=== PATIENT | female | born 1945 | race Caucasian/White ===

== ENCOUNTER 2018-02-08 13:42 | Inpatient (IN) | payer OTHER ==
[~2018-02-08] VITALS: Ht 142.2 cm; Wt 52.8 kg
[2018-02-08] VITALS (27 sets, daily range): BP systolic 74–126; BP diastolic 47–76; PULSE 104–126; RESP 9–21; Ht 142.2 cm; Wt 52.8 kg
--- NOTE | 2018-02-08 14:17 | ERD ---
ER Documentation Chief Complaint Chief Complaint BIB RA FOR EVAL OF HYPOGLYCEMIA. G10 GIVEN BY EMS. INITIAL GLUCOSE 20MG/DL HPI 72-year-old woman brought in by EMS from home for generalized weakness and hypoglycemia. Daughter states patient felt weak today and had fever and chills but was behaving normally and eating well yesterday and last night. She has a history of end-stage kidney disease and is hemodialysis dependent MWF, and has missed her last 3 hemodialysis sessions. Her right hemodialysis catheter was placed about 7-8 months ago. She states she is able to still urinate a bit, she denies URI symptoms, no cough, no vomiting or diarrhea, no blood per rectum or melena. Patient was given dextrose at the scene and mental status improved and transport here otherwise unremarkable. ROS All systems reviewed and are negative except as per history of present illness. Medications Home Meds Reported Medications Hydrocodone/Acetaminophen ([place] 5-325 Tablet) 1 Each Tablet, 1 EACH PO DAILY PRN for SEVERE PAIN LEVEL 7-10, TAB 02/08/18 Ondansetron Hcl* (Ondansetron Hcl*) 4 Mg Tablet, 4 MG PO Q4H PRN for NAUSEA AND OR VOMITING, TAB 02/08/18 Fludrocortisone* (Fludrocortisone*) 0.1 Mg Tablet, 0.1 MG PO DAILY, TAB 02/08/18 Levothyroxine Sodium* (Levothyroxine Sodium*) 25 Mcg Tablet, 25 MCG PO BEFORE BREAKFAST, #30 TAB 02/08/18 Digoxin* (Lanoxin*) 0.125 Mg Tablet, 0.125 MG PO DAILY, TAB 02/08/18 Ergocalciferol (Vitamin D2) (VITAMIN D2) 50,000 Unit Capsule, 96612 UNIT PO WEEKLY, CAP 02/08/18 Allergies Allergies: Coded Allergies: No Known Allergy (Unverified , 02/08/18) PMhx/Soc History of stroke, ambulates with a walker, hypertension but daughter states she has episodic hypotension, end-stage kidney disease hemodialysis dependent MWF, history of stroke, CHF with a left ventricular ejection fraction of 20% and severe global hypokinesis, COPD, pulmonary hypertension FmHx Family History: diabetes Physical Exam Vitals Vital Signs Date Temp Pulse Resp B/P (MAP) Pulse Ox O2 O2 Flow FiO2 Time Delivery Rate 02/08/18 122 14 80/60 (67) 97 BIPAP 16:45 02/08/18 100.6 121 17 98/57 (71) 95 BIPAP 16:19 02/08/18 100.1 118 15 104/57 100 BIPAP 15:01 (73) 02/08/18 100.8 14:45 02/08/18 128 30 100 14:26 02/08/18 Nasal 2 14:00 Cannula 02/08/18 100.8 127 20 143/112 97 13:53 (122) Physical Exam Const: No acute distress, febrile, dyspneic Head: Atraumatic Eyes: Normal Conjunctiva ENT: Normal External Ears, Nose and Mouth. Neck: Full range of motion. No meningismus. Resp: Clear to auscultation bilaterally Cardio: Tachycardic and regular Abd: Soft, no guarding or rigidity, no rebound Skin: No petechiae or rashes Back: No midline or flank tenderness Ext: No cyanosis, or edema Neur: Awake and alert x2, able to answer simple questions and follows simple commands, no focal deficits Psych: Normal Mood and Affect Result Diagram: 02/08/18 1400 02/08/18 1621 Results 24 hrs Laboratory Tests Test 02/08/18 13:55 02/08/18 14:00 02/08/18 14:14 02/08/18 14:20 POC Venous 3.2 mmol/L Lactate White Blood 2.2 10^3/ul Count Red Blood Count 3.55 10^6/ul Hemoglobin 11.6 g/dl Hematocrit 35.6 % Mean 100.3 fl Corpuscular Volume Mean 32.7 pg Corpuscular Hemoglobin Mean 32.6 g/dl Corpuscular Hemoglobin Conc ent Red Cell 19.1 % Distribution Width Platelet Count 86 10^3/UL Mean Platelet 13.1 fl Volume Immature 0.400 % Granulocytes % Neutrophils % 75.6 % Lymphocytes % 13.8 % Monocytes % 9.4 % Eosinophils % 0.4 % Basophils % 0.4 % Nucleated Red 1.3 /100WBC Blood Cells % Immature 0.010 10^3/ul Granulocytes # Neutrophils # 1.7 10^3/ul Lymphocytes # 0.3 10^3/ul Monocytes # 0.2 10^3/ul Eosinophils # 0.0 10^3/ul Basophils # 0.0 10^3/ul Nucleated Red 0.0 10^3/ul Blood Cells # Prothrombin 18.0 Sec Time Prothrombin 1.4 Time Ratio INR 1.46 International Normalized Rati o Activated 35.8 Sec Partial Thrombo plast Time Bedside Glucose 76 mg/dL Urine Color RED Urine Clarity TURBID Urine pH 6.0 Urine Specific 1.016 [place] Urine Ketones TRACE mg/dL Urine Nitrite NEGATIVE mg/dL Urine Bilirubin NEGATIVE mg/dL Urine NEGATIVE mg/dL Urobilinogen Urine Leukocyte 2+ Rosa/ul Esterase Urine > 182 /HPF Microscopic RBC Urine > 182 /HPF Microscopic WBC Urine Squamous MODERATE /HPF Epithelial Cell s Urine Bacteria MANY /HPF Urine 3+ mg/dL Hemoglobin Urine Glucose NEGATIVE mg/dL Urine Total 3+ mg/dl Protein Test 02/08/18 14:49 02/08/18 15:15 02/08/18 15:23 02/08/18 15:38 Bedside Glucose 46 mg/dL 91 mg/dL 73 mg/dL Blood Gas Blood arterial Specimen Source Arterial Blood 02/08/2018 3:18 Date Drawn :12 PM Arterial Blood 7.429 pH (Temp corrected ) Arterial Blood 33.5 mmhg pCO2 (Temp correct) Arterial Blood 95.2 mmHG pO2 (Temp corrected ) Arterial Blood 21.7 mmol/L HCO3 Arterial Blood -1.9 mmol/L Base Excess Arterial Blood 97.1 mmHG Oxygen Saturati on Pepe Test ACCEPTAB Arterial Blood Right Radial Gas Puncture Site Arterial 1.3 % Blood Carboxyhe moglobin Arterial Blood 0.3 % Methemoglobin Blood Gas A-a 79.3 mmHg O2 Differential Oxyhemoglobin 95.5 % Percent Blood Gas 37.0 C Temperature Blood Gas 16.0 Respiration Rate Blood Gas 22 Actual Respiration Rat e Blood Gas MASK - BIPAP Modality FiO2 30.0 % Blood Gas 13 Pressure Support Blood Gas 18/5 IPAP/EPAP Ratio Blood Gas M.[email or web address] Notified Whom Blood Gas 02/08/2018 3:39 Notified Time :33 PM Test 02/08/18 16:04 02/08/18 16:21 02/08/18 16:40 02/08/18 16:41 Bedside Glucose 62 mg/dL 67 mg/dL Sodium Level Pending Potassium Level mmol/L Chloride Level Pending Carbon Dioxide Pending Level Anion Gap Pending Blood Urea 68 mg/dl Nitrogen Creatinine 5.45 mg/dl Est Glomerular mL/min Filtrat Rate mL/min Glucose Level 96 mg/dl Calcium Level 8.2 mg/dl Total Bilirubin 0.7 mg/dl Direct 0.30 mg/dl Bilirubin Indirect 0.4 mg/dl Bilirubin Aspartate Amino 183 IU/L Transf (AST/SGO T) Alanine 9 IU/L Aminotransferas e (ALT/SGPT) Alkaline 251 IU/L Phosphatase Troponin I 0.046 ng/ml B-Type Pending Natriuretic Peptide Total Protein 8.1 g/dl Albumin 3.8 g/dl Globulin 4.30 g/dl Albumin/Globuli 0.88 n Ratio Lipase 25 U/L POC Venous 3.8 mmol/L Lactate Hepatitis B Pending Surface Antigen Hepatitis B Pending Core Total Antibody Hepatitis C Pending Antibody Test 02/08/18 16:55 Bedside Glucose 108 mg/dL Current Medications Medications Dose Sig/Gris Start Time Status Last (Trade) Ordered Route PRN Stop Time Admin Dose Reason Admin Cefepime HCl 50 ml @ ONCE ONCE 02/08/18 DC 02/08/18 100 mls/hr IVPB 14:30 14:34 02/08/18 14:59 Vancomycin 250 ml @ ONCE IVPB 02/08/18 DC 02/08/18 HCl 125 mls/hr 14:30 15:25 02/08/18 16:29 Ibuprofen 600 mg ONCE ONCE 02/08/18 DC (Motrin) PO 14:30 02/08/18 14:31 650 mg ONCE ONCE 02/08/18 DC 02/08/18 Acetaminophen IA 15:00 14:45 (Tylenol 02/08/18 Supp) 15:01 650 mg STK-MED 02/08/18 DC Acetaminophen ONCE IA 14:40 (Tylenol 02/08/18 Supp) 14:41 Dextrose 50 ml STK-MED 02/08/18 DC (D50w ONCE .ROUTE 14:51 Syringe) 02/08/18 14:52 Dextrose 50 ml ONCE ONCE 02/08/18 DC 02/08/18 (D50w IV 15:00 14:55 Syringe) 02/08/18 15:02 Dextrose 25 ml ONCE ONCE 02/08/18 DC 02/08/18 (D50w IV 16:30 16:05 Syringe) 02/08/18 16:31 Digoxin 0.125 mg DAILY@1300 02/09/18 (Digoxin) PO 13:00 0.1 mg DAILY PO 02/09/18 Fludrocortiso 09:00 ne Acetate (Florinef) 25 mcg BEFORE 02/09/18 Levothyroxine BREAKFAST 07:00 Sodium PO (Synthroid) IV Flush 3 ml PER 02/08/18 (NS 3 ml) PROTOCOL IV 16:30 Heparin 5,000 unit Q12 SC 02/08/18 Sodium 21:00 (Porcine) (Heparin (5000 Units/1ml)) Dextrose 50 ml Q10MIN PRN 02/08/18 02/08/18 (D50w IV 16:30 16:44 Syringe) hypoglycemia 250 ml @ TITRATE IV 02/08/18 Norepinephrin 1.875 mls/ 16:30 e hr Vancomycin VANCOMYCIN PER 02/08/18 UNV HCl (Vanco PER PHARMACY PROTOCOL XX 17:00 Iv Per Pharmacy) 50 ml @ Q24H IVPB 02/08/18 UNV Meropenem/Sod 100 mls/hr 17:00 ium Chloride Procedures/MDM IV line established 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 Patient was febrile. Blood and urine cultures have been ordered results are pending I will follow-up. 1 view chest x-ray performed, read by me: Severe cardiomegaly, atelectatic changes bilaterally, AICD in the left chest EKG performed, read by me revealed a paced ventricular rhythm tachycardic at 119 bpm, right axis deviation, intraventricular block, no concerning ST elevations or depressions noted. Administered cefepime 1 g IV and vancomycin 1 g IV. I suspect sepsis and patient may have infected hemodialysis catheter and or urinary tract infection. CBC reveals a leukopenia 2.2 and mild thrombocytopenia 86,000, creatinine el evated at 5.5, electrolytes otherwise unremarkable, liver function tests unremarkable, troponin negative. Urinalysis is positive for infection. Lactic acid initially elevated at 3.2 ABG reveals a pH of 7.43, PCO2 34, PO2 95. Normal Patient's infectious symptoms have not stabilized and the patient is at risk of rapid decompensation. The patient will be admitted for careful hydration, antibiotic therapy, and infectious source control. SEVERE SEPSIS CRITERIA: Infectious source: Urinary tract infection versus infected hemodialysis catheter End organ damage indicated by: [Lactate > 2.0 mmol/L Hypotension (SBP < 90 or >40 mmHG drop or MAP < 65) SEPSIS MANAGEMENT Time of recognition of sepsis: Upon arrival. Time of recognition of severe sepsis: No severe sepsis at this time. Time of recognition of septic shock: No septic shock at this time. 3 HOUR BUNDLE Blood cultures x 2 before broad-spectrum antibiotics: Yes 30 ml/kg NS bolus not completed because patient is in pulmonary edema Initial lactate 3.2 Repeat lactate 3.8 SEPTIC SHOCK ASSESSMENT: No lactic acid > 4.0 No persistent hypotension (SBP < 90 or 40 mmHg drop, MAP < 65) despite 30 mL/kg IV fluid bolus VOLUME REASSESSMENT FOR SEPTIC SHOCK: Reevaluation Time: 1600 Temp 99 F, pulse 100 bpm, respiratory rate 18 breaths/min, saturation 100% Heart tachycardic and regular Lungs poor breath sounds bilaterally Skin warm & dry Cap Refill less than 2 seconds Peripheral pulses radially present PERSISTENT HYPOTENSION TREATMENT: Comfort care no Central line not Required Vasopressor started not required I considered further perfusion assessment with CVP measurement, SCVO2, bedside ultrasound volume assessment, passive leg raise, trial of further fluid bolus. And proceeded with 30 ml/kg fluid bolus of NSS, broad spectrum antibiotics, and admission. CRITICAL CARE: Critical care time 35 minutes, this was time separate from other billable procedures. Emergent fluid management while maintaining close respiratory support. Provision of immediate and broad-spectrum antibiotic therapy. Simultaneous assessment for possible sources in order to direct targeted therapy. Consideration for invasive and chemical support to prevent cardiopulmonary collapse. Critical care time is independent of procedures performed. Accepting Care Team: Current data and ongoing care discussed. Time: Time of admission Primary Provider: Hospitalist Consulting: Infectious disease and nephrology Outstanding Data: none Departure Diagnosis: Primary Impression: Sepsis Sepsis type: sepsis due to unspecified organism Qualified Codes: A41.9 - Sepsis, unspecified organism Additional Impressions: Acute UTI End stage kidney disease Acute pulmonary edema CHF (congestive heart failure) Heart failure type: systolic Heart failure chronicity: acute Qualified Codes: I50.21 - Acute systolic (congestive) heart failure Acute metabolic encephalopathy due to hypoglycemia Condition: Serious HENRY MENESES MD Feb 08, 2018 14:17
[2018-02-08] MEDS ORDERED: IBUPROFEN 600 MG TAB PO ONE (14:30)
[2018-02-08] MEDS ORDERED: CEFEPIME 1GM/50 ML (PMX) 50 ML IVPB ONE (14:30)
[2018-02-08] MEDS ORDERED: VANCOMYCIN 1 GM (PMX) 250 ML IVPB SCH (14:30)
[2018-02-08] MEDS ORDERED: ACETAMINOPHEN 650 MG SUPP PR ONE ×2 (14:40→15:00)
[2018-02-08] MEDS ORDERED: ERGO500013 PO (14:49)
[2018-02-08] MEDS ORDERED: DIGO125T93 PO (14:49)
[2018-02-08] MEDS ORDERED: FLUD0.1T10 PO (14:50)
[2018-02-08] MEDS ORDERED: LEVO25TA6 PO (14:50)
[2018-02-08] MEDS ORDERED: DEXTROSE 50% 50 ML SYRINGE ONE (14:51)
[2018-02-08] MEDS ORDERED: ONDA4TAB95 PO (14:51)
[2018-02-08] MEDS ORDERED: HYDR-4011 PO (14:52)
[2018-02-08] MEDS ORDERED: DEXTROSE 50% 50 ML SYRINGE IV ONE ×2 (15:00→16:30)
--- NOTE | 2018-02-08 16:15 | HP ---
Date/Time of Note Date/Time of Note DATE: 02/08/18 TIME: 16:05 Assessment/Plan VTE Prophylaxis SCD applied (from Nsg): Yes Pharmacological prophylaxis: heparin Lines/Catheters IV Catheter Type (from Nrsg): Saline Lock Assessment/Plan Hospital Course 72 yo female with systolic CHF, DMII, ESRD, A Fib w PPM who presents with hypog lycemia, sepsis, and acute respiratory failure Acute respiratory failure: - From pulmonary edema 2/2 missed HD sessions - Urgent HD required. No significant pericardial effusion on bedside TTE so th is is not tamponade ESRD: - HD per Dr Nicole Hypoglycemia: - Not clear if related to sepsis vs drug induced but will treat with D50 pushes PRN, serial fingersticks Sepsis: - merrem q12h, limit IVF DMII; - hold insulin given hypoglycemia A Fib: - hold AC To ICU Result Diagram: 02/08/18 1400 02/08/18 1400 Results 24hrs Laboratory Tests Test 02/08/18 13:55 02/08/18 14:00 02/08/18 14:14 02/08/18 14:20 POC Venous 3.2 *H Lactate White Blood 2.2 L Count Red Blood Count 3.55 L Hemoglobin 11.6 L Hematocrit 35.6 L Mean 100.3 Corpuscular Volume Mean 32.7 Corpuscular Hemoglobin Mean 32.6 Corpuscular Hemoglobin Conc ent Red Cell 19.1 H Distribution Width Platelet Count 86 L Mean Platelet 13.1 H Volume Immature 0.400 Granulocytes % Neutrophils % 75.6 Lymphocytes % 13.8 L Monocytes % 9.4 Eosinophils % 0.4 Basophils % 0.4 Nucleated Red 1.3 H Blood Cells % Immature 0.010 Granulocytes # Neutrophils # 1.7 Lymphocytes # 0.3 L Monocytes # 0.2 L Eosinophils # 0.0 Basophils # 0.0 Nucleated Red 0.0 Blood Cells # Prothrombin 18.0 H Time Prothrombin 1.4 Time Ratio INR 1.46 International Normalized Rati o Activated 35.8 H Partial Thrombo plast Time Sodium Level Pending Potassium Level Chloride Level Pending Carbon Dioxide Pending Level Anion Gap Pending Blood Urea 68 H Nitrogen Creatinine 5.45 H Est Glomerular Filtrat Rate mL/min Glucose Level 96 Calcium Level 8.2 L Total Bilirubin 0.7 Direct 0.30 H Bilirubin Indirect 0.4 Bilirubin Aspartate Amino 183 H Transf (AST/SGO T) Alanine 9 L Aminotransferas e (ALT/SGPT) Alkaline 251 H Phosphatase Troponin I 0.046 B-Type Pending Natriuretic Peptide Total Protein 8.1 Albumin 3.8 Globulin 4.30 H Albumin/Globuli 0.88 n Ratio Lipase 25 Bedside Glucose 76 Urine Color RED Urine Clarity TURBID A Urine pH 6.0 Urine Specific 1.016 [place] Urine Ketones TRACE A Urine Nitrite NEGATIVE Urine Bilirubin NEGATIVE Urine NEGATIVE Urobilinogen Urine Leukocyte 2+ H Esterase Urine > 182 H Microscopic RBC Urine > 182 H Microscopic WBC Urine Squamous MODERATE Epithelial Cell s Urine Bacteria MANY A Urine 3+ H Hemoglobin Urine Glucose NEGATIVE Urine Total 3+ H Protein Test 02/08/18 14:49 02/08/18 15:15 02/08/18 15:23 02/08/18 15:38 Bedside Glucose 46 *L 91 73 Blood Gas Blood arterial Specimen Source Arterial Blood 02/08/2018 3:18 Date Drawn :12 PM Arterial Blood 7.429 pH (Temp corrected ) Arterial Blood 33.5 L pCO2 (Temp correct) Arterial Blood 95.2 H pO2 (Temp corrected ) Arterial Blood 21.7 L HCO3 Arterial Blood -1.9 Base Excess Arterial Blood 97.1 Oxygen Saturati on Pepe Test ACCEPTAB Arterial Blood Right Radial Gas Puncture Site Arterial 1.3 Blood Carboxyhe moglobin Arterial Blood 0.3 Methemoglobin Blood Gas A-a 79.3 H O2 Differential Oxyhemoglobin 95.5 Percent Blood Gas 37.0 Temperature Blood Gas 16.0 Respiration Rate Blood Gas 22 Actual Respiration Rat e Blood Gas MASK - BIPAP Modality FiO2 30.0 Blood Gas 13 Pressure Support Blood Gas 18/5 IPAP/EPAP Ratio Blood Gas M.D. Notified Whom Blood Gas 02/08/2018 3:39 Notified Time :33 PM HPI/ROS Admit Date/Time Admit Date/Time Hx of Present Illness 72 yo female with ESRD on HD, severe systolic CHF, A Fib, PPM who presents with hypoglycemia and SOB Patient in [facility] until last day. Found to be lethargic. Family checked FSG and found to be 14. EMS called and gave D50. In ED, found to be still lethargic and in respiratory failure. Started on bipap. Hypotensive as well, given abx. Patient unable to participate in history right now. Says her legs hurt, has obvious venous wound there PMH/Family/Social Past Medical History Medical History: congestive heart failure, diabetes, renal disease Medications Current Medications Vancomycin HCl 250 ml @ 125 mls/hr ONCE IVPB Last administered on 02/08/18at 15:25; Admin Dose 125 MLS/HR; Start 02/08/18 at 14:30; Stop 02/08/18 at 16:29 Coded Allergies: No Known Allergy (Unverified , 02/08/18) Past Surgical History Past Surgical Hx: no surgical history Family History Significant Family History: no pertinent family hx Social History Alcohol Use: none Smoking Status: Never smoker Drug Use: none Exam/Review of Systems Vital Signs Vitals Vital Signs Date Temp Pulse Resp B/P (MAP) Pulse Ox O2 O2 Flow FiO2 Time Delivery Rate 02/08/18 100.1 118 15 104/57 100 BIPAP 15:01 (73) 02/08/18 100 14:26 02/08/18 2 14:00 Exam Exam Cachectic Lethargic appearing On BIPAP ++ JVD Breathing comfortably on NIPPV RRR Abd soft nt nd Ext with venous stasis ulcerations, mild edema MILGRKEANU REID MD Feb 08, 2018 16:15
[2018-02-08] MEDS ORDERED: NACL 0.9% 3 ML SYG IV SCH (16:30)
--- NOTE | 2018-02-08 16:31 | NUR ---
DIALYSIS CONFIRMATION # [id number]
[2018-02-08] MEDS: DEXTROSE 50% 50 ML SYRINGE IV PRN ×3 (16:44→20:35)
[2018-02-08] MEDS ORDERED: VANCOMYCIN IV PER PHARMACY XX SCH (17:00)
[2018-02-08] MEDS ORDERED: PHENYLephrine 20MG IN 250 ML 250 ML IV SCH (17:30)
--- NOTE | 2018-02-08 17:50 | CONS ---
DATE OF ADMISSION: 02/08/2018 DATE OF CONSULTATION: 02/08/2018 TYPE OF CONSULTATION: Nephrology. REASON FOR CONSULTATION: End-stage renal disease. PHYSICIAN REQUESTING CONSULT: Sam Shepherd MD HISTORY OF PRESENT ILLNESS: This is a 72-year-old female with a past medical history of end-stage re nal disease on dialysis Tuesday, Tuesday, Tuesday with access of PermCath. The patient's primary nep hrologist is in [place]. The patient's last hemodialysis apparently was over a week ago. The twila burch presents to [facility] with weakness, fevers, chills. Upon arrival to the emerge ncy room, the patient was noted to be visibly tachypneic, shortness of breath. The patient had a ely st x-ray which showed enlargement of cardiomediastinal silhouette compatible with cardiomegaly and/or pericardial effusion. The patient also had laboratory data drawn, which showed BUN of 68, creatinin e 5.48, glucose level 67. ABG was performed which showed pH of 7.42 and a pCO2 of 33. In the emerge ncy room, the patient was placed on BiPAP and was being transferred to intensive care unit. The demarco ender was also started on broad broad-spectrum antibiotics. In terms of patient's renal history as stated above, the patient is on dialysis 3 times weekly. Last hemodialysis is a week ago. PAST MEDICAL HISTORY: History of end-stage renal disease, history of ____, history of CHF, history o f cardiomyopathy with ejection fraction of 20%, history of COPD, history of pulmonary hypertension. PAST SURGICAL HISTORY: Status post PermCath placement. ALLERGIES: NO KNOWN DRUG ALLERGIES. FAMILY HISTORY: No family history of kidney disease. SOCIAL HISTORY: Does not drink, smoke or do drugs. MEDICATIONS: Have been reviewed. REVIEW OF SYSTEMS: A 14-point review of systems conducted. Pertinent positives stated in HPI, other kim negative. PHYSICAL EXAMINATION: VITAL SIGNS: Blood pressure is 80/60, respiration 14, pulse 122, temperature 100.6. HEENT: Head is normocephalic. Pupils are equal, reactive to light. NECK: Supple. HEART: Regular rate. LUNGS: Show diminished breath sounds at the base. ABDOMEN: Soft, nontender to palpation. No rebound or guarding. EXTREMITIES: Negative for clubbing, cyanosis. Positive edema. Diffuse anasarca. DERMATOLOGIC: No rashes. MUSCULOSKELETAL: No joint effusions. NEUROLOGIC: No change in exam. LABORATORY DATA: BMP is currently pending. CBC shows white count ____, hemoglobin 11.6, platelet co unt 86. ASSESSMENT AND PLAN: This is a 72-year-old female who presents with: 1. End-stage renal disease. The patient is on dialysis Tuesday, Tuesday, Tuesday with access of Per [facility]. Last hemodialysis was 1 week ago. Plan is for urgent hemodialysis today for solute clearance and volume removal. We will dialyze for 3 hours of 2k bath, calcium 2.5, ultrafiltrate as tolerated . 2. Acute hypoxemic respiratory failure secondary to volume overload, questionable pericardial effusi on. Plan is for patient to undergo hemodialysis with goal of ultrafiltration approximately 1 to 2 li ters. We will anticipate daily dialysis for volume removal until patient is near euvolemic status. Continue BiPAP. Anticipate hemodialysis. 3. Uremia with questionable pericardial effusion, possible uremic pericarditis. Plan is to continue aggressive hemodialysis for solute clearance. Continue to monitor. 4. Systemic inflammatory response syndrome, possible sepsis. Underlying source is unclear. Rule ou t line infection. Continue empiric antibiotics. Check blood cultures. Continue medical management. If the patient becomes hypotensive, consider pressor support. 5. Atrial fibrillation. Continue current medical management. 6. Diabetes. Continue current insulin regimen. Monitor for episodes of hypoglycemia. Thank you, Dr. Shepherd, for this interesting consult. It will be a pleasure to follow patient with y ou throughout the hospital course. Dictated By: ROYAL ROSA DO NR/NTS Conf#: [id number] DID#: [id number] CC: SAM SHEPHERD MD; TI ESPINO MD;*EndCC*
--- NOTE | 2018-02-08 17:55 | NUR ---
VANCO PER RX PROTOCOL: DAY #1 S/O: TMAX = 100.8 SCR/BUN/= 5.45/68 WBC = 2.2 DX: ESRD (HD), DM, CHF, SEPSIS 2/2 UTI A/P: VANCO 1GM GIVEN IN ER THIS AFTERNOON. NO FURTHER VANCO UNTIL FURTHER ORDERS. RANDOM LEVEL IN 2-3 DAYS TO CHECK VANCO CLEARANCE. WILL CONTINUE TO FOLLOW.
[2018-02-08] MEDS ORDERED: LIDOCAINE 1% (MPF) 5 ML VIAL SC ONE ×2 (18:00→19:00)
[2018-02-08] MEDS: NORepinephrine 8MG/250 ML (PMX 250 ML IV SCH (18:12)
[2018-02-08] MEDS: MEROPENEM 500MG/50 ML (PMX) 50 ML IVPB SCH (18:21)
[2018-02-08] MEDS: ACCU-CHEK XX SCH ×3 (19:00→23:00)
--- NOTE | 2018-02-08 19:08 | NUR ---
PICC LINE INSERTION Per radiology, call [phone] to have PICC nurse come in after hours. No one in house available to place PICC at this time. Number called and message left. Awaiting call back. Will endorse to oncoming RN, Lashonda, to follow up.
[2018-02-08] MEDS: HEPARIN 5,000 UNIT/1 ML VIAL SC SCH (21:45)
[2018-02-09] VITALS (67 sets, daily range): BP systolic 77–124; BP diastolic 40–94; PULSE 110–163; RESP 9–21
[2018-02-09] MEDS: DEXTROSE 50% 50 ML SYRINGE IV PRN ×4 (00:52→23:42)
[2018-02-09] MEDS: ACCU-CHEK XX SCH ×12 (00:57→23:42)
[2018-02-09] MEDS: traMADol 50 MG TAB PO PRN ×2 (01:29→07:57)
--- NOTE | 2018-02-09 07:25 | NUR ---
EOSS: PT REMAINED HEMODYNAMICALLY STABLE OVERNIGHT. BP BEING MANAGED ON LEVOPHED GTT. NO ACUTE CARDIAC EVENTS NOTED. PT SATTING WELL ON 4L NC. PT REMAINS NPO. BG MONITORED OVERNIGHT, 2 EPISODES OF HYPOGLYCEMIA NOTED, TREATED WITH D50 PUSHES, CONTINUING TO MONITOR CAREFULLY. MD AWARE. NO [place] IN PLACE. HD ARRIVED AT 06:50. DAUGHTER AT BEDSIDE AND UPDATED ON PLAN OF CARE. PRN TRAMADOL GIVEN ONCE FOR GENERALIZED PAIN, REASSESSED PARTIALLY EFFECTIVE. PICC LINE RESCHEDULED FOR TODAY. PT AFEBRILE AND COMFORTABLE. NO COMPLAINTS OF PAIN. WILL CONTINUE TO MONITOR AND ASSESS AND ENDORSE CARE TO DAY SHIFT RN.
--- NOTE | 2018-02-09 08:20 | NUR ---
DIALYSIS CONFIRMATION #[id number] SCHEDULED FOR 02/10/18
[2018-02-09] MEDS: HEPARIN 5,000 UNIT/1 ML VIAL SC SCH ×2 (08:40→20:36)
[2018-02-09] MEDS: NORepinephrine 8MG/250 ML (PMX 250 ML IV SCH ×2 (08:43→17:31)
--- NOTE | 2018-02-09 08:52 | PN ---
DATE: 02/09/2018 SUBJECTIVE: The patient is critically ill on pressor support. The patient is pending hemodialysis. No other events noted. OBJECTIVE: VITAL SIGNS: Blood pressure is 102/58, respiration 19, pulse 115, temperature 98.6. HEENT: Head is normocephalic. NECK: Supple. HEART: Regular rate. LUNGS: Show diminished breath sounds at the base. ABDOMEN: Soft, nontender to palpation without guarding. EXTREMITIES: Negative for clubbing, cyanosis. Positive edema. DERMATOLOGIC: No rashes. MUSCULOSKELETAL: No joint effusion. NEUROLOGIC: No change in exam. MEDICATIONS: The patient's medications have been reviewed. LABORATORY DATA: Shows white count 7.2, hemoglobin 12.3, platelet count 70. Sodium 132, potassium 5 .6, BUN 70, creatinine 6.29. Patient's blood cultures positive for gram-negative rods. ASSESSMENT AND PLAN: 1. End-stage renal disease. The patient is on dialysis Tuesday, Tuesday, Tuesday with access Perm-A -Cath. The patient's last hemodialysis was approximately 1 week ago. The patient is pending urgent hemodialysis. Will dialyze for 3 hours 2k bath, calcium 2.5, ultrafiltrate as tolerated. 2. Septic shock, etiology is concerning for possible line infection. The patient's blood cultures a re growing out gram-negative rods. Continue current medical management. Continue pressor support. Continue IV antibiotics. We will discuss with infectious disease about discontinuing Perm-A-Cath. W ill monitor closely. 3. Anemia. Continue to monitor hemoglobin and hematocrit levels. 4. Volume overload. Continue ultrafiltration hemodialysis if the patient is hemodynamically stable. 5. Mineral bone disorder, monitor calcium and phosphorus levels. 6. Acute encephalopathy. Etiology is toxic metabolic, uremic. Continue medical management. Contin ue ultrafiltration dialysis. Continue to treat underlying sepsis. 7. Acute hypoxemic respiratory failure secondary to volume overload, congestion. Continue current m edical management. Continue ultrafiltration dialysis. 8. Atrial fibrillation. Continue current treatment plan. 9. Diabetes. Continue current insulin regimen. 10. Hypokalemia. The patient will be dialyzed on 2 potassium bath. 11. Hyponatremia. The patient will be dialyzed on 140 sodium bath. Please note I spent over 30 minutes of critical care time with this patient. Dictated By: ROYAL VAZQUEZ/MILA Conf#: [id number] DID#: [id number] CC: KEANU CROUCH MD;*[facility]*
[2018-02-09] MEDS ORDERED: FLUDROCORTISONE 0.1 MG TAB PO SCH (09:00)
[2018-02-09] MEDS ORDERED: HEPARIN 1000 UNITS/ML 10 ML INJ CATHETER ONE (09:30)
[2018-02-09] MEDS: LEVOTHYROXINE 25 MCG TAB PO SCH (09:32)
--- NOTE | 2018-02-09 11:00 | NUR ---
Pt completed hemodialysis well, uf removal 1600 ml. Pt endorsed to primary RN Henrique Herndon. .
[2018-02-09] MEDS: DIGOXIN 0.125 MG TAB PO SCH (12:27)
--- NOTE | 2018-02-09 14:11 | CONS ---
DATE OF ADMISSION: 02/08/2018 DATE OF CONSULTATION: 02/09/2018 TYPE OF CONSULTATION: Infectious disease. REASON FOR CONSULTATION: Antibiotic management. HISTORY OF PRESENT ILLNESS: Anamaria Palomo is a 72-year-old female who was brought in for evaluation of hypoglycemia. The patient was brought in by EMS from home for generalized weakness and hypoglyce maye. Her daughter states the patient felt weak. She had fever and chills, but was behaving normally and eating well the day prior to admission. She has a history of end-stage renal disease on hemodia lysis Tuesday, Tuesday and Tuesday and her last 3 hemodialysis sessions. Her right hemodialysi s catheter was placed 7 or 8 months ago. She states she is still able to urinate. She denies URI sy mptoms. She has no cough or sputum production, nausea, vomiting, constipation, diarrhea, hematemesis or melena. She was given D50 at the scene and her mental status improved at that point. PAST MEDICAL HISTORY: Positive for: 1. End-stage renal disease on hemodialysis. 2. History of stroke. She ambulates with a walker. 3. Hypertension with episodes of hypotension. 4. Congestive heart failure with left ventricular ejection fraction of 20% and severe global hypokin esis. 5. Chronic obstructive pulmonary disease. 6. Pulmonary hypertension. PAST MEDICAL HISTORY: Operations as outlined. FAMILY HISTORY: Positive for diabetes. SOCIAL HISTORY: She does not smoke, drink or abuse drugs. ALLERGIES: None to penicillin, sulfa or foods. MEDICATIONS: Per chart. REVIEW OF SYSTEMS: Noncontributory. PHYSICAL EXAMINATION: VITAL SIGNS: T-max was 100.8, currently 98. SKIN: Without generalized rash. HEENT: Within normal limits. NECK: Supple. LYMPH NODES: None palpable. CHEST: Decreased breath sounds at the bases. HEART: Tachycardic, regular rhythm without murmur or gallop. ABDOMEN: Soft, nontender, without organosplenomegaly or masses. EXTREMITIES: Without cyanosis, clubbing, or edema. RECTAL AND GENITAL: Deferred. NEUROLOGIC: No focal neurological abnormalities. ANCILLARY LABORATORY DATA: White count 2.2, H and H 11.6 and 35.6, platelet count 86,000. BUN and c reatinine 68/5.45. Random glucose of 96. IMPRESSION AND PLAN: The patient was started on vancomycin and cefepime and then vancomycin and chris penem. Blood and urine cultures were ordered. The patient was noted to be leukopenic as outlined wi th a white count of 2.2. She had 76% polys, so she is not absolutely neutropenic. Her urine showed 2+ leukocyte esterase, greater than 182 white cells and red cells per high powered field. Her urine and blood grew out gram-negative rods. Her sepsis is probably related to her urinary tract infection . She is currently on appropriate antibiotic therapy with urinary tract infection with sepsis with g francesca-negative rods. She was seen by Dr. Nicole and will be started back on appropriate antimicrobial s. I doubt that the Perm-A-Cath is infected. I would not pull it at this point. Her chest x-ray do es not show any acute infiltrates. So the source of her infection appears to be her urinary tract. I will dictate my findings to the hospitalist and to Dr. Nicole. White count today is 7.2, up from 2.2, but she has 20 polys, 42 bands with a significant left shift. Dictated By: ZANDER BOWLES MD, JD/MILA Conf#: [id number] DID#: [id number] CC: KEANU CROUCH MD;*[facility]*
[2018-02-09] MEDS ORDERED: LIDOCAINE 1% (MPF) 5 ML VIAL SC ONE (16:30)
--- NOTE | 2018-02-09 16:33 | RADRPT ---
Echocardiogram Report Patient Name: YANN CANO Gender: Female Date: 1945 Study Date: 08-Feb-2018 Office Electrician: [place] [employer] [facility] Location: [facility] Ref. Physician: KEANU CROUCH Quality: Adequate Procedures: Transthoracic echocardiogram with complete 2D, M-Mode, and doppler examination. Indications: Congestive Heart Failure. 2D/M Mode Doppler Measurement Value Normal Ranges Measurement Value Normal Ranges LVIDd 2D 5.3 3.5 - 5.6 cm AV Peak Isaac 1.5 m/sec LVIDs 2D 4.4 2.1 - 4.1 cm AV Peak PG 9.0 mmHg LVPWd 2D 0.9 0.6 - 1.1 cm LVOT Peak Isaac 0.6 m/sec IVSd 2D 0.8 0.6 - 1.1 cm LVOT Peak PG 2.0 mmHg AoR Diam 2D 2.3 2.0 - 3.7 cm MV E Peak Isaac 1.4 m/sec LA/Ao 2D 2 0 - 1 MV A Peak Isaac 0.3 m/sec LA Dimen 2D 4.6 2.3 - 4.0 cm MV E/A 4.7 MV Decel Time 194 msec Lat E` Isaac 0.1 m/sec Lateral E/E` 15.3 Med E` Isaac 0.0 m/sec MV E/A 4.7 TAPSE 1.6 cm TR Peak Isaac 2.8 m/sec TR Peak PG 32.0 mmHg RVSP 47.0 mmHg Findings Left Ventricle: Normal left ventricular cavity size. Normal left ventricular wall thickness. Severe left ventricular systolic dysfunction. Ejection fraction is visually estimated at 20 %. Abnormal Diastolic Function. These segments of the LV are dyskinetic mid septum segment and septum base segment. Right Ventricle: Moderate enlargement of right ventricle. Mild right ventricular hypokinesis. Pacemaker right heart. Left Atrium: There is mild enlargement of left atrium. Right Atrium: There is severe enlargement of right atrium. Mitral Valve: Mild mitral leaflet calcification. Mild mitral annular calcification. Moderate to severe mitral valve regurgitation. The regurgitation jet is eccentrically directed which may underestimate the severity of mitral regurgitation. Aortic Valve: No significant aortic stenosis or insufficiency. Aortic cusps appear mildly calcified. Mild aortic valve regurgitation. Tricuspid Valve: Normal appearance of the tricuspid valve. Estimated peak PA systolic pressure 47 mmHg. There is moderate tricuspid regurgitation. Pulmonic Valve: Pulmonic valve not well visualized. There is mild pulmonic regurgitation. Pericardium: TRivial to Small pericardial effusion. Left pleural effusion seen. Aorta: Normal aortic root. IVC: Dilated inferior vena cava with poor inspiratory collapse consistent with elevated right atrial pressures. Conclusions Normal left ventricular cavity size. Normal left ventricular wall thickness. Severe left ventricular systolic dysfunction. Ejection fraction is visually estimated at 20 %. Abnormal Diastolic Function. These segments of the LV are dyskinetic mid septum segment and septum base segment. Moderate enlargement of right ventricle. Mild right ventricular hypokinesis. Pacemaker right heart. There is mild enlargement of left atrium. There is severe enlargement of right atrium. Mild mitral leaflet calcification. Mild mitral annular calcification. Moderate to severe mitral valve regurgitation. The regurgitation jet is eccentrically directed which may underestimate the severity of mitral regurgitation. No significant aortic stenosis or insufficiency. Aortic cusps appear mildly calcified. Mild aortic valve regurgitation. Normal appearance of the tricuspid valve. Estimated peak PA systolic pressure 47 mmHg. There is moderate tricuspid regurgitation. Pulmonic valve not well visualized. There is mild pulmonic regurgitation. Electronically Signed By: Graham Lopez 09-Feb-2018 16:33:05 -0800 Patient Name: YANN CANO Study Date: 08-Feb-2018 [id number]
--- NOTE | 2018-02-09 16:52 | NUR ---
PICC LINE INSERTION PICC LINE NURSE AT BEDSIDE AT THIS TIME
--- NOTE | 2018-02-09 17:01 | PN ---
Date/Time of Note Date/Time of Note DATE: 02/09/18 TIME: 17:00 Assessment/Plan VTE Prophylaxis Risk score (from Nsg)>0 risk: 6 SCD applied (from Nsg): No SCD contraindicated: low risk/ambulating Pharmacological prophylaxis: heparin Lines/Catheters IV Catheter Type (from Nrsg): Peripheral IV Urinary Cath still in place: No Assessment/Plan Hospital Course 72 yo female with systolic CHF, DMII, ESRD, A Fib w PPM who presents with hypoglycemia, sepsis, and acute respiratory failure Acute respiratory failure: - Resolved, O2 as needed Hypotensin/shock: - Levophed to MAP 65 ESRD: - HD per Dr Nicole Hypoglycemia: - Not clear if related to sepsis vs drug induced but will treat with D50 pushes PRN, serial fingersticks Sepsis with GNR bacteremia: - merrem q12h, limit IVF, abx per ID DMII; - hold insulin given hypoglycemia A Fib: - hold AC To ICU Result Diagram: 02/09/18 0451 02/09/18 0451 Results 24hrs Laboratory Tests Test 02/08/18 17:16 02/08/18 18:01 02/08/18 18:25 02/08/18 18:52 Bedside Glucose 78 58 L 116 Lactic Acid 2.7 *H Level Test 02/08/18 18:53 02/08/18 20:00 02/08/18 21:02 02/08/18 21:17 Bedside Glucose 94 56 L 131 127 Test 02/08/18 22:50 02/08/18 22:56 02/08/18 23:53 02/09/18 00:50 Bedside Glucose 78 80 77 64 L Test 02/09/18 01:32 02/09/18 03:06 02/09/18 04:47 02/09/18 04:49 Bedside Glucose 132 142 96 Digoxin Level 0.5 L Test 02/09/18 04:51 02/09/18 05:56 02/09/18 07:53 02/09/18 08:15 White Blood 7.2 # Count Red Blood Count 3.79 L Hemoglobin 12.3 Hematocrit 37.1 Mean Corpuscular 97.9 Volume Mean Corpuscular 32.5 Hemoglobin Mean Corpuscular 33.2 Hemoglobin Estrellita nt Red Cell 18.6 H Distribution Width Platelet Count 70 L Mean Platelet 12.1 H Volume Immature 0.300 Granulocytes % Neutrophils % Segmented 20 L Neutrophils % (Manual) Band Neutrophils 43 H % (Manual) Lymphocytes % Lymphocytes % 4 L (Manual) Monocytes % Monocytes % 4 (Manual) Eosinophils % Eosinophils % 10 H (Manual) Basophils % Metamyelocytes % 14 H (manual) Myelocytes % 5 H (Manual) Nucleated Red 1 H Blood Cells % Immature 0.020 Granulocytes # Neutrophils # Neutrophils # 1.7 (Manual) Band Neutrophils 3.0 H # Lymphocytes 0.2 L (Manual) Lymphocytes # Monocytes # Monocytes # 0.2 L (Manual) Eosinophils # Basophils # Metamyelocytes # 1.0 H Myelocytes # 0.3 H Nucleated Red Blood Cells # Platelet DECREASED Estimate Giant Platelets 1 H Polychromasia 1+ Poikilocytosis 2+ Anisocytosis 3+ Macrocytosis 3+ Sodium Level 132 L Potassium Level 5.6 H Chloride Level 93 L Carbon Dioxide 23 Level Anion Gap 16 H Blood Urea 70 H Nitrogen Creatinine 6.29 H Est Glomerular Filtrat Rate mL/min Glucose Level 101 Hemoglobin A1c 5.1 Calcium Level 8.4 Total Bilirubin 1.2 Direct Bilirubin 0.60 #H Indirect 0.6 Bilirubin Aspartate Amino 36 Transf (AST/SGOT ) Alanine 20 Aminotransferase (ALT/SGPT) Alkaline 253 H Phosphatase Total Protein 6.5 # Albumin 2.9 L Globulin 3.60 H Albumin/Globulin 0.80 Ratio Bedside Glucose 81 67 L 147 Test 02/09/18 08:34 02/09/18 09:00 02/09/18 09:57 02/09/18 10:55 Bedside Glucose 114 104 89 98 Test 02/09/18 11:53 02/09/18 11:54 02/09/18 12:04 02/09/18 13:37 Creatine Kinase 35 Creatine Kinase 4.9 Index Creatinine 1.71 Kinase MB (Mass) Troponin I 0.177 *H Magnesium Level 2.0 Bedside Glucose 85 81 Test 02/09/18 13:56 02/09/18 15:01 02/09/18 16:09 Bedside Glucose 76 70 65 L Subjective 24 Hr Interval Summary Free Text/Dictation Mental status normalized Doesn't remember yesterday's events Has throat pain, chornic since previous intubation Exam/Review of Systems Vital Signs Vitals Vital Signs Date Temp Pulse Resp B/P (MAP) Pulse Ox O2 O2 Flow FiO2 Time Delivery Rate 02/09/18 129 12:00 02/09/18 18 101/70 90 Nasal 2.0 10:32 (80) Cannula 02/09/18 98.0 08:00 02/08/18 100 14:26 Intake and Output 02/08/18 02/08/18 02/09/18 1515:00 23:00 07:00 IntakeIntake Total 148.750 ml 148.125 ml OutputOutput Total 0 ml 200 ml BalanceBalance 148.750 ml -51.875 ml Exam Constitutional: alert, oriented, well developed Psych: no complaints, nl mood/affect Head: normocephalic, atraumatic Eyes: nl conjunctiva, EOMI, nl lids, nl sclera, PERRL ENMT: nl external ears & nose, nl lips & teeth, nl nasal mucosa & septum Neck: supple, non-tender Respiratory: clear to auscultation, normal air movement Cardiovascular: regular rate and rhythm, nl pulses Gastrointestinal: soft, nl liver, spleen, non-tender Musculoskeletal: nl extremities to inspection, nl gait and stance Extremities: normal pulses Neurological: STILL PUMP OPERATOR II-XII intact, nl mental status, nl speech, nl strength Skin: nl turgor; No rash or lesions Lymph: nl lymph nodes Medications Medications Current Medications Digoxin (Digoxin) 0.125 mg DAILY@1300 PO Last administered on 02/09/18at 12:27; Admin Dose 0.125 MG; Start 02/09/18 at 13:00 Levothyroxine Sodium (Synthroid) 25 mcg BEFORE BREAKFAST PO Last administered on 02/09/18at 09:32; Admin Dose 25 MCG; Start 02/09/18 at 07:00 IV Flush (NS 3 ml) 3 ml PER PROTOCOL IV ; Start 02/08/18 at 16:30 Heparin Sodium (Porcine) (Heparin (5000 Units/1ml)) 5,000 unit Q12 SC Last administered on 02/08/18at 21:45; Admin Dose 5,000 UNIT; Start 02/08/18 at 21: 00 Dextrose (D50w Syringe) 50 ml Q10MIN PRN IV hypoglycemia Last administered on 02/09/18at 16:12; Admin Dose 50 ML; Start 02/08/18 at 16:30 Norepinephrine 250 ml @ 1.875 mls/ hr TITRATE IV Last administered on 02/09/18at 08:43; Admin Dose 28.125 MLS/HR; Start 02/08/18 at 16:30 Vancomycin HCl (Vanco Iv Per Pharmacy) VANCOMYCIN PER PHARMACY PER PROTOCOL XX ; Start 02/08/18 at 17:00 Meropenem/Sodium Chloride 50 ml @ 100 mls/hr Q24H IVPB Last administered on 02/08/18at 18:21; Admin Dose 100 MLS/HR; Start 02/08/18 at 17:00 Diagnostic Test (Pha) (Accu-Chek) 1 ea Q2 XX Last administered on 02/09/18at 05:25; Admin Dose 1 EA; Start 02/08/18 at 19:00 Tramadol HCl (Ultram) 50 mg Q6H PRN PO MODERATE PAIN LEVEL 4-6 Last administered on 02/09/18at 07:57; Admin Dose 50 MG; Start 02/09/18 at 01:30 Miscellaneous Information (*Rx Drug Level Order Reminder*) RANDOM VANCO LEVEL ... ONCE ONCE XX ; Start 02/10/18 at 05:00; Stop 02/10/18 at 05:01 KEANU CROUCH MD Feb 09, 2018 17:01
[2018-02-09] MEDS: MEROPENEM 500MG/50 ML (PMX) 50 ML IVPB SCH (17:31)
--- NOTE | 2018-02-09 17:49 | NUR ---
PICC Insertion. Received order in the Radiology Department for peripherally inserted central catheter (PICC) insertion at bedside. Orders verified and history reviewed. Patient awake, alert, oriented x 2, confused. Procedure reviewed prior to starting and patient cooperative to proceed. Signed and telephone consent on chart for PICC from daughter Saritha. Patient has a Rt IJ Perm Cath, left subclavian ICD, and left AV Fistula so RUE chosen for PICC site. Both arms and hands very bruised and platelet count low. RUE prepped with chlorhexidene, then maximum barrier drape applied. Xylocaine 1% given SC at the intended insertion site. Right brachial vein accessed with 21G needle high up the arm because the veins were so small distal to insertion site. 5 FR double lumen Arrow Power PICC, Lot#[id number], Product #[id number], inserted into brachial vein after trimming catheter down to 27cm, using U/S guidance and sterile technique. Brisk blood return from both ports. CXR performed; tip verbally confirmed by in lower 1/3 SVC with 27cm internal and none out. All wires removed and accounted for. Sterile dressing applied. Patient tolerated procedure well.
[2018-02-09] MEDS ORDERED: PHENYLephrine 40 MG in DEXTROSE 5% 246 ML IV SCH (22:00)
[2018-02-09] MEDS: ONDANSETRON 4 MG INJ IV PRN (23:29)
[2018-02-10] VITALS (95 sets, daily range): BP systolic 62–119; BP diastolic 34–98; PULSE 82–149; RESP 9–26
[2018-02-10] MEDS: ACCU-CHEK XX SCH ×10 (01:05→21:33)
--- NOTE | 2018-02-10 06:50 | NUR ---
EOSS: PATIENT REMAINED STABLE THROUGHOUT SHIFT; VITAL SIGNS PARAMETERS CHARTED. BP MAINTAINED ON LEVOPHED. PT TOLERATING 4L NC WITH ADEQUATE OXYGENATION SATURATION >92%. PT ON SOFT CARB CONTROLLED DIET, WITH POOR APPETITE. PT HAD ONE HYPOGLYCEMIC EPISODE DURING THE NIGHT, RESOLVED WITH 1 AMP OF D50. MD AWARE. PT IS ANURIC AND SCHEDULED FOR HD TODAY. PT HAD BM LAST NIGHT. SKIN AND WOUND CARE PROVIDED PER PROTOCOL. PT TURNED AND REPOSITIONED Q2H. DAUGHTER CALLED IN AND WAS UPDATED ON PLAN OF CARE. PRN ZOFRAN GIVEN ONCE FOR COMPLAINTS OF NAUSEA. LEVOPHED GTT RUNNING THROUGH DANNI PICC LINE. DR. ROSA SAW PT THIS AM AND IS CONSIDERING THE PERMACATH TO BE A POSSIBLE SOURCE OF INFECTION. PT AFEBRILE AND COMFORTABLE, ALL NEEDS MET. SAFETY MEASURES IN PLACE. WILL CONTINUE TO MONITOR AND ENDORSE CARE TO DAY SHIFT RN.
--- NOTE | 2018-02-10 07:52 | CONS ---
DATE OF ADMISSION: 02/08/2018 DATE OF CONSULTATION: 02/09/2018 TYPE OF CONSULTATION: Cardiology. REASON FOR CONSULTATION: Atrial fibrillation, permanent pacemaker, congestive heart failure, cardiom radha. REQUESTING PHYSICIAN: Sam Shepherd MD HISTORY OF PRESENT ILLNESS: Ms. Palomo is a 72-year-old female with a history of systolic congest yamileth heart failure, cardiomyopathy with severely depressed left ventricular ejection fraction by echo 11/24/2017 revealing EF of 20% at that time, atrial fibrillation, not on systemic anticoagulation due to a bleeding diathesis per chart biopsy, permanent pacemaker, believed to be a biventricular pacema ker, [employer] device placed at [facility] who presented with shortness of breath Hy perglycemia. The patient had been in usual state of health until the day of admission. She was foun d to be lethargic. Family checked a blood sugar and it was found to be 14. EMS was called. They ga ve D50. She was brought to the Emergency Department. Upon arrival, temperature 100.8, blood pressur e 143/112, pulse 127, respiration 20, satting 97%. The patient's labs notable for white blood count 2.2, hemoglobin 11.6, platelet count of 86. Sodium of 132, potassium 5.0, creatinine 5.45, BUN of 68 . Lactate of 3.8. Troponin negative. BNP greater than 175,000. Lipase 25. Albumin 4.3. INR 1.46 . UA positive. The patient underwent a chest x-ray revealing severe enlargement of the cardiomedias tinal silhouette compatible with cardiomegaly and/or pericardial effusion. The patient's electrocard iogram , probably consistent with atrial fibrillation, right axis deviation, recurrent ventricul ar pacing and at times AV pacing. The patient admitted to the ICU where she required initiation of L evophed pressor support and started on hemodialysis at this time. The patient denies chest pain, has improved shortness of breath as well as dialysis and denies palpitations. PAST MEDICAL HISTORY: As above in HPI. MEDICATIONS CURRENTLY IN HOSPITAL: 1. Digoxin 0.125 mg daily. 2. Florinef. 3. Synthroid. 4. Ultram. 5. Heparin 5000 subcu q.12h. 6. Vancomycin. 7. Meropenem. 8. Levophed. ALLERGIES: No known drug allergies. SOCIAL HISTORY: No current tobacco, ETOH or illicit drug use. FAMILY HISTORY: No history of sudden cardiac or early CAD. REVIEW OF SYSTEMS: As above in HPI. CONSTITUTIONAL: No fevers, chills. PULMONARY: No current shortness of breath. CARDIOVASCULAR: Hypertension, cardiomyopathy. GASTROINTESTINAL: No vomiting. GENITOURINARY: No hematuria. End-stage renal disease. MUSCULOSKELETAL: Degenerative joint disease. PSYCHIATRIC: No documented psych history. NEUROLOGIC: No documented history of CVA. PHYSICAL EXAMINATION: VITAL SIGNS: Temperature 98.9, blood pressure most recently 101/70, pulse 118, primarily a paced rhy thm, possible underlying atrial fibrillation, respiration 18, satting 90% on 2 liters. GENERAL: The patient is alert, awake, in mild shortness of breath, no chest pain. NECK: JVP approximately 9 cm of water. CHEST: Fair movement throughout with decreased breath sounds at bases bilaterally. HEART: Tachycardic, irregular rhythm, I/ systolic murmur, laterally displaced PMI. ABDOMEN: Positive bowel sounds, soft. EXTREMITIES: Chronic venous stasis changes. Difficult to palpate distal pulses bilateral posterior tibial. LABORATORY DATA: Most recently from today, white blood cell count 7.2, hemoglobin 7.3, platelet coun t of 70. Sodium 132, potassium 5.6, creatinine 6.29, BUN of 70. INR 1.46. IMAGING STUDIES: As above in HPI. No further imaging studies for my review at this time. ECG: As above in HPI. No further electrocardiograms for my review at this time. IMPRESSION: 1. Hypotension/shock, likely combination of septic and cardiogenic. 2. Cardiomyopathy with severely depressed left ventricular ejection fraction by 11/2017 reveali ng ejection fraction of 20%. 3. A biventricular ICD with ongoing pacing. 4. Atrial fibrillation. 5. End-stage renal disease on hemodialysis. 6. Hyperkalemia. 7. Pancytopenia. 8. Hyponatremia. 9. Coagulopathy. 10. Hypothyroidism. RECOMMENDATIONS: 1. At this time, would maintain patient in ICU on close monitoring. 2. Complete the patient's rule out for myocardial infarction to ensure the patient's constellation o f symptoms are not the result of an acute coronary syndrome such as acute myocardial infarction. 3. We will reassess patient's ejection fraction with a 2D echo. Rule out any pericardial effusion. 4. Would consider likely holding the patient's digoxin in the setting of end-stage renal disease. 5. Continue the patient's subcu heparin at this time although patient does have a history of possibl e bleeding diathesis and watch for bleeding complications to prevent thromboembolic complications and atrial fibrillation also given mild coagulopathy with continuous subcutaneous heparin. 6. Would consider discontinuation of Florinef. This can lead to increased volume in the setting of end-stage renal disease and volume overload. 7. Will discontinue phenylephrine not to use in the setting of severe depressed EF would be p ure afterload. 8. Continue the patient's antibiotics and follow up all culture data. 9. I will continue to follow the patient's hemoglobin closely, transfuse as necessary. Thank you for allowing me to take part in the care of this patient. I will continue to follow very c losely with you with further recommendations to be made as the patient progresses through his [facility] clinical course. Dictated By: TI ZAMUDIO/MILA Conf#: [id number] DID#: [id number] CC: SAM SHEPHERD MD;*[facility]*
[2018-02-10] MEDS: HEPARIN 5,000 UNIT/1 ML VIAL SC SCH (09:00)
[2018-02-10] MEDS: LEVOTHYROXINE 25 MCG TAB PO SCH (09:27)
--- NOTE | 2018-02-10 10:06 | PN ---
DATE: 02/10/2018 SUBJECTIVE: The patient remains critically ill on pressor support. The patient had hemodialysis and tolerated it well. The patient had no other acute events noted. No hemoptysis, hematemesis or joelle tochezia. OBJECTIVE: VITAL SIGNS: Blood pressure is 94/76, respiration , pulse 130, temperature 98.6. HEENT: Head is normocephalic. NECK: Supple. HEART: Regular rate. LUNGS: Show diminished breath sounds at the base. ABDOMEN: Soft, nontender to palpation without rebound or guarding. EXTREMITIES: Negative for clubbing, cyanosis, positive edema. DERMATOLOGIC: No rashes. MUSCULOSKELETAL: No joint effusions. NEUROLOGIC: No change in exam. MEDICATIONS: The patient's medications have been reviewed. LABORATORY DATA: Showed sodium 137, potassium 4.2, chloride 92, BUN 37, creatinine 3.68. White coun t 14.1, hemoglobin 12.3, platelet count is 67. The patient's urine cultures and blood cultures posit yamileth for gram-negative rods. ASSESSMENT AND PLAN: 1. End-stage renal disease. The patient is on dialysis Tuesday, Tuesday, Tuesday, access PermCath. The patient is scheduled for dialysis today. We will dialyze 3 hours 2k bath, calcium 2.5, ultrafil trate as tolerated. 2. Septic shock. Etiology is possibly secondary to urinary tract infection. The patient's urine cu ltures and blood cultures are positive for gram-negative rods. We will discuss with infectious disea se about the need to possibly removing Perm-A-Cath as the patient is bacteremic. We will also have b lood cultures drawn from Perm-A-Cath. We will continue IV antibiotics, continue pressor support. Mo nitor closely. 3. Anemia. Monitor hemoglobin and hematocrit levels. 4. Volume overload. Continue ultrafiltration with hemodialysis if the patient is hemodynamically st able. 5. Mineral bone disorder, monitor calcium and phosphorus levels. 6. Acute encephalopathy, etiology is toxic metabolic, uremic. Continue medical management. Continu e ultrafiltration dialysis. Continue to treat underlying sepsis. 7. Acute hypoxemic respiratory failure. The patient remains on nasal cannula. Continue medical man agement. Continue hemodialysis. 8. Atrial fibrillation. Continue current treatment plan. 9. Diabetes. Continue current insulin regimen. 10. Electrolyte abnormality, resolved. Please note I spent over 30 minutes of critical care time with this patient. Dictated By: ROYAL VAZQUEZ/MILA Conf#: [id number] DID#: [id number] CC: TI ESPINO MD; KEANU CROUCH MD;*EndCC*
--- NOTE | 2018-02-10 11:34 | NUR ---
RX NOTE RE: VANCOMYCN DAY#3 OF VANCOMYCIN PER RX BUN/SCR: 37/3.68 TMAX: 98 ALLERGIES: NKDA OTHER ABX: MERREM VANCO RANDOM: 9.8 TO DOSE VANCOMYCIN IV 750MG X1 AFTER DIALYSIS. PHARMACY TO FOLLOW
--- NOTE | 2018-02-10 12:11 | RADRPT ---
Vent Rate: 143 bpm RR Interval: 0 msec OR Interval: 0 msec QRS Duration: 136 msec QT Interval: 332 msec QTC Interval: 512 msec P-R-T [place]: 0 - 166 - -19 degrees Suspect arm lead reversal, interpretation assumes no reversal Atrial fibrillation with rapid ventricular response Nonspecific intraventricular block Inferior infarct , age undetermined Anterolateral infarct , age undetermined Abnormal ECG Electronically Signed By: Nito Coleman [id number]
--- NOTE | 2018-02-10 12:12 | RADRPT ---
Vent Rate: 134 bpm RR Interval: 0 msec AR Interval: 0 msec QRS Duration: 114 msec QT Interval: 358 msec QTC Interval: 534 msec P-R-T [place]: 0 - 160 - 12 degrees Suspect arm lead reversal, interpretation assumes no reversal Atrial fibrillation with rapid ventricular response Low voltage QRS Anterolateral infarct , age undetermined Abnormal ECG Electronically Signed By: Nito Coleman [id number]
--- NOTE | 2018-02-10 12:27 | NUR ---
Per Hold HD because HR is HIGH SV tachycardia
[2018-02-10] MEDS: DEXTROSE 10% 1,000 ML IV SCH (12:30)
--- NOTE | 2018-02-10 12:38 | CONS ---
Date/Time of Note Date/Time of Note DATE: 02/10/18 TIME: 12:32 Assessment/Plan Assessment/Plan Hospital Course IMPRESSION: 1. Hypotension/shock, likely combination of septic and cardiogenic. 2. Cardiomyopathy with severely depressed left ventricular ejection fraction by outside hospital echo 11/2017 revealing ejection fraction of 20%. Now agin by echo here at [facility] 20% 3. A biventricular ICD with ongoing pacing.- Normal function by interrogation 02/09 4. Atrial fibrillation-also seen on interrogation 02/09 5. End-stage renal disease on hemodialysis. 6. Hyperkalemia. 7. Pancytopenia. 8. Hyponatremia. 9. Coagulopathy. 10. Hypothyroidism. 11.Positive troponin-minimal in the setting of esrd 12. Bacteremia-GNR 14.UTI Recc: -Tele -continue digoxin and will give IVP x 1 -Start IV amio in attempt to improve rate/rhythm -wean levo as tolerated -HD for volume removal as tolerated -Continue abx's and f/u cx data -trend cardiac enzymes -Check TSH Result Diagram: 02/10/18 0425 02/10/18 0425 Results 24hrs Laboratory Tests Test 02/09/18 13:37 02/09/18 13:56 02/09/18 15:01 02/09/18 16:09 Bedside Glucose 81 76 70 65 L Test 02/09/18 17:40 02/09/18 18:04 02/09/18 19:09 02/09/18 20:43 Creatine Kinase 27 Creatine Kinase 4.7 Index Creatinine 1.28 Kinase MB (Mass) Troponin I 0.153 *H Bedside Glucose 128 90 93 Test 02/09/18 21:49 02/09/18 23:34 02/10/18 00:30 02/10/18 03:01 Sodium Level 139 Potassium Level 4.1 Chloride Level 94 L Carbon Dioxide 28 Level Anion Gap 17 H Blood Urea 36 #H Nitrogen Creatinine 3.76 #H Est Glomerular Filtrat Rate mL/min Glucose Level 91 Calcium Level 8.3 L Magnesium Level 1.9 Creatine Kinase 23 Creatine Kinase 5.3 Index Creatinine 1.22 Kinase MB (Mass) Troponin I 0.158 *H Bedside Glucose 67 L 153 100 Test 02/10/18 04:25 02/10/18 04:31 02/10/18 06:24 02/10/18 09:25 White Blood 14.1 #H Count Red Blood Count 3.76 L Hemoglobin 12.3 Hematocrit 37.6 Mean Corpuscular 100.0 Volume Mean Corpuscular 32.7 Hemoglobin Mean Corpuscular 32.7 Hemoglobin Estrellita nt Red Cell 18.5 H Distribution Width Platelet Count 67 L Mean Platelet 13.0 H Volume Immature 4.800 H Granulocytes % Neutrophils % Segmented 20 L Neutrophils % (Manual) Band Neutrophils 54 H % (Manual) Lymphocytes % Lymphocytes % 2 L (Manual) Reactive 1 H Lymphocytes % (Manual) Monocytes % Monocytes % 18 H (Manual) Eosinophils % Basophils % Metamyelocytes % 4 H (manual) Promyelocytes % 1 H (Manual) Nucleated Red 0.0 Blood Cells % Immature 0.680 H Granulocytes # Neutrophils # Neutrophils # 3.9 (Manual) Band Neutrophils 7.6 H # Lymphocytes 0.2 L (Manual) Lymphocytes # Reactive 0.1 H Lymphocytes # Monocytes # Monocytes # 2.5 H (Manual) Eosinophils # Basophils # Metamyelocytes # 0.5 H Promyelocytes # 0.1 H Nucleated Red Blood Cells # Platelet DECREASED Estimate Giant Platelets 4 H Poikilocytosis 3+ Anisocytosis 3+ Macrocytosis 3+ Spherocytes 1+ Target Cells 1+ Sodium Level 137 Potassium Level 4.2 Chloride Level 92 L Carbon Dioxide 27 Level Anion Gap 18 H Blood Urea 37 H Nitrogen Creatinine 3.68 H Est Glomerular Filtrat Rate mL/min Glucose Level 98 Calcium Level 8.3 L Phosphorus Level 4.8 Magnesium Level 2.0 Random 9.8 Vancomycin Level Bedside Glucose 72 86 77 Test 02/10/18 11:04 Bedside Glucose 82 Consultation Date/Type/Reason Admit Date/Time Feb 08, 2018 at 14:49 Initial Consult Date 02/09/18 Type of Consult cardiology Reason for Consultation Hypotension/AF Requesting Provider: CHASITY MADSEN Exam/Review of Systems Vital Signs Vitals Vital Signs Date Temp Pulse Resp B/P (MAP) Pulse Ox O2 O2 Flow FiO2 Time Delivery Rate 02/10/18 4.0 11:25 02/10/18 142 17 98/72 (81) 95 10:30 02/10/18 98.0 08:00 02/10/18 Nasal 07:00 Cannula 02/08/18 100 14:26 Intake and Output 02/09/18 02/09/18 02/10/18 1414:59 22:59 06:59 IntakeIntake Total 217.875 ml 248.125 ml 348.675 ml OutputOutput Total 400 ml 0 ml 0 ml BalanceBalance -182.125 ml 248.125 ml 348.675 ml Exam Review of Systems: CONSTITUTIONAL: No fevers, chills. PULMONARY: No sob CARDIOVASCULAR: No chest pain/palpitations GASTROINTESTINAL: No nausea/vomiting. GENITOURINARY: No hematuria/dysuria. MUSCULOSKELETAL: No myagias/arthalgias. PSYCHIATRIC: The patient denies depression. NEUROLOGIC: generalized weakness Constitutional: alert Psych: no complaints Head: normocephalic ENMT: mucosa pink and moist Neck: supple, jvd (9 cm water) Respiratory: diminished breath sounds Cardiovascular: irregular rhythm (tachycardic) Gastrointestinal: soft, non-tender Musculoskeletal: muscle tone (normal) Extremities: edema (none) Neurological: other (No focal deficits) Medications Medications Current Medications Digoxin (Digoxin) 0.125 mg DAILY@1300 PO Last administered on 02/09/18at 12:27; Admin Dose 0.125 MG; Start 02/09/18 at 13:00 Levothyroxine Sodium (Synthroid) 25 mcg BEFORE BREAKFAST PO Last administered on 02/10/18at 09:27; Admin Dose 25 MCG; Start 02/09/18 at 07:00 IV Flush (NS 3 ml) 3 ml PER PROTOCOL IV ; Start 02/08/18 at 16:30 Dextrose (D50w Syringe) 50 ml Q10MIN PRN IV hypoglycemia Last administered on 02/09/18at 23:42; Admin Dose 50 ML; Start 02/08/18 at 16:30 Vancomycin HCl (Vanco Iv Per Pharmacy) VANCOMYCIN PER PHARMACY PER PROTOCOL XX ; Start 02/08/18 at 17:00 Meropenem/Sodium Chloride 50 ml @ 100 mls/hr Q24H IVPB Last administered on 02/09/18at 17:31; Admin Dose 100 MLS/HR; Start 02/08/18 at 17:00 Diagnostic Test (Pha) (Accu-Chek) 1 ea Q2 XX Last administered on 02/10/18at 10:52; Admin Dose 1 EA; Start 02/08/18 at 19:00 Tramadol HCl (Ultram) 50 mg Q6H PRN PO MODERATE PAIN LEVEL 4-6 Last administered on 12/27/18at 07:57; Admin Dose 50 MG; Start 02/09/18 at 01:30 IV Flush (NS 10 ml) 10 ml PRN PRN IV IV PROTOCOL; Start 02/09/18 at 18:00 Phenylephrine HCl 40 mg/Dextrose 250 ml @ 37.5 mls/hr TITRATE IV ; Start 02/09/18 at 22:00 Ondansetron HCl (Zofran Inj) 4 mg Q4H PRN IV NAUSEA AND/OR VOMITING Last administered on 02/09/18at 23:29; Admin Dose 4 MG; Start 02/09/18 at 23:00 Norepinephrine 8 mg/Dextrose 250 ml @ 1.88 mls/hr TITRATE IV Last administered on 02/10/18at 10:54; Admin Dose 41.25 MLS/HR; Start 02/10/18 at 09:15 Dextrose 1,000 ml @ 50 mls/hr Q20H IV ; Start 02/10/18 at 11:00 Vancomycin/Sodium Chloride 250 ml @ 125 mls/hr ONCE ONCE IVPB ; Start 02/10/18 at 16:00; Stop 02/10/18 at 17:59 TI ESPINO Feb 10, 2018 12:38
[2018-02-10] MEDS: DIGOXIN 0.125 MG TAB PO SCH (12:43)
[2018-02-10] MEDS ORDERED: DIGOXIN 500 MCG INJ IV ONE (13:00)
[2018-02-10] MEDS ORDERED: AMIODARONE 150MG/D5W BOLUS 100 ML IV ONE (13:00)
[2018-02-10] MEDS: AMIODARONE 900 MG in DEXTROSE 5% 482 ML IV SCH (13:37)
--- NOTE | 2018-02-10 13:45 | CONS ---
Date/Time of Note Date/Time of Note DATE: 02/10/18 TIME: 13:44 Assessment/Plan Assessment/Plan Hospital Course Patient is on pressors lethargic looks comfortable she is also in atrial fibrillation, did not tolerate hemodialysis this morning pulse 143 respirations 20 blood pressure 102/87 saturation 100 on 4 L. Temperature 98.1 with a T-max of 100.8 yesterday WBC 14.1 H&H 12.3 and 37.6 platelets 67 bands 54 Indwelling's: Right chest permacath, PICC line 02/09/18 Microbiology: Blood and urine culture growing gram-negative rods Antimicrobials: Vancomycin, meropenem Chest x-ray this morning revealed severe enlargement of cardiomediastinal silhouette compatible with cardiomegaly and/or pericardial effusion. No radiographic evidence of acute pulmonary process Physical examination: This is a chronically ill-appearing elderly woman who is lethargic in no distress. Head atraumatic normocephalic sclera nonicteric. Vehicle mucosa dry. Neck is supple chest rise symmetrical breath sounds diminished bases. Heart: S1-S2, irregular. Abdomen soft bowel sounds hypoactive. Extremities cyanotic with trace edema and multiple ecchymosis and bruises Assessment: 1. Severe sepsis with shock, possibly also cardiogenic 2. Gram-negative sheeba bacteremia, cannot rule out line sepsis 3. Gram-negative rods UTI 4. Rapid atrial fibrillation 5. End-stage renal disease, hemodialysis dependent 6. History of CVA and hypertension 7. Pancytopenia Plan: Patient remains hemodynamically unstable, will repeat blood cultures from permacath, continue antibiotics, await for final cultures, she may require discontinuation of permacath Result Diagram: 02/10/18 0425 02/10/18 0425 Results 24hrs Laboratory Tests Test 02/09/18 13:56 02/09/18 15:01 02/09/18 16:09 02/09/18 17:40 Bedside Glucose 76 70 65 L Creatine Kinase 27 Creatine Kinase 4.7 Index Creatinine 1.28 Kinase MB (Mass) Troponin I 0.153 *H Test 02/09/18 18:04 02/09/18 19:09 02/09/18 20:43 02/09/18 21:49 Bedside Glucose 128 90 93 Sodium Level 139 Potassium Level 4.1 Chloride Level 94 L Carbon Dioxide 28 Level Anion Gap 17 H Blood Urea 36 #H Nitrogen Creatinine 3.76 #H Est Glomerular Filtrat Rate mL/min Glucose Level 91 Calcium Level 8.3 L Magnesium Level 1.9 Creatine Kinase 23 Creatine Kinase 5.3 Index Creatinine 1.22 Kinase MB (Mass) Troponin I 0.158 *H Test 02/09/18 23:34 02/10/18 00:30 02/10/18 03:01 02/10/18 04:25 Bedside Glucose 67 L 153 100 White Blood 14.1 #H Count Red Blood Count 3.76 L Hemoglobin 12.3 Hematocrit 37.6 Mean Corpuscular 100.0 Volume Mean Corpuscular 32.7 Hemoglobin Mean Corpuscular 32.7 Hemoglobin Estrellita nt Red Cell 18.5 H Distribution Width Platelet Count 67 L Mean Platelet 13.0 H Volume Immature 4.800 H Granulocytes % Neutrophils % Segmented 20 L Neutrophils % (Manual) Band Neutrophils 54 H % (Manual) Lymphocytes % Lymphocytes % 2 L (Manual) Reactive 1 H Lymphocytes % (Manual) Monocytes % Monocytes % 18 H (Manual) Eosinophils % Basophils % Metamyelocytes % 4 H (manual) Promyelocytes % 1 H (Manual) Nucleated Red 0.0 Blood Cells % Immature 0.680 H Granulocytes # Neutrophils # Neutrophils # 3.9 (Manual) Band Neutrophils 7.6 H # Lymphocytes 0.2 L (Manual) Lymphocytes # Reactive 0.1 H Lymphocytes # Monocytes # Monocytes # 2.5 H (Manual) Eosinophils # Basophils # Metamyelocytes # 0.5 H Promyelocytes # 0.1 H Nucleated Red Blood Cells # Platelet DECREASED Estimate Giant Platelets 4 H Poikilocytosis 3+ Anisocytosis 3+ Macrocytosis 3+ Spherocytes 1+ Target Cells 1+ Sodium Level 137 Potassium Level 4.2 Chloride Level 92 L Carbon Dioxide 27 Level Anion Gap 18 H Blood Urea 37 H Nitrogen Creatinine 3.68 H Est Glomerular Filtrat Rate mL/min Glucose Level 98 Calcium Level 8.3 L Phosphorus Level 4.8 Magnesium Level 2.0 Random 9.8 Vancomycin Level Test 02/10/18 04:31 02/10/18 06:24 02/10/18 09:25 02/10/18 11:04 Bedside Glucose 72 86 77 82 Test 02/10/18 12:57 Bedside Glucose 80 Consultation Date/Type/Reason Admit Date/Time Feb 08, 2018 at 14:49 Initial Consult Date Type of Consult id Requesting Provider: CHASITY MADSEN Exam/Review of Systems Vital Signs Vitals Vital Signs Date Temp Pulse Resp B/P (MAP) Pulse Ox O2 O2 Flow FiO2 Time Delivery Rate 02/10/18 137 9 102/87 100 Nasal 4.0 13:15 (92) Cannula 02/10/18 98.1 12:00 02/08/18 100 14:26 Intake and Output 02/09/18 02/09/18 02/10/18 1515:00 23:00 07:00 IntakeIntake Total 199.125 ml 291.250 ml 350.06 ml OutputOutput Total 200 ml 0 ml 0 ml BalanceBalance -0.875 ml 291.250 ml 350.06 ml Medications Medications Current Medications Digoxin (Digoxin) 0.125 mg DAILY@1300 PO Last administered on 02/09/18at 12:27; Admin Dose 0.125 MG; Start 02/09/18 at 13:00 Levothyroxine Sodium (Synthroid) 25 mcg BEFORE BREAKFAST PO Last administered on 02/10/18at 09:27; Admin Dose 25 MCG; Start 02/09/18 at 07:00 IV Flush (NS 3 ml) 3 ml PER PROTOCOL IV ; Start 02/08/18 at 16:30 Dextrose (D50w Syringe) 50 ml Q10MIN PRN IV hypoglycemia Last administered on 02/09/18at 23:42; Admin Dose 50 ML; Start 02/08/18 at 16:30 Vancomycin HCl (Vanco Iv Per Pharmacy) VANCOMYCIN PER PHARMACY PER PROTOCOL XX ; Start 02/08/18 at 17:00 Meropenem/Sodium Chloride 50 ml @ 100 mls/hr Q24H IVPB Last administered on 02/09/18at 17:31; Admin Dose 100 MLS/HR; Start 02/08/18 at 17:00 Diagnostic Test (Pha) (Accu-Chek) 1 ea Q2 XX Last administered on 02/10/18at 13:03; Admin Dose 1 EA; Start 02/08/18 at 19:00 Tramadol HCl (Ultram) 50 mg Q6H PRN PO MODERATE PAIN LEVEL 4-6 Last administered on 02/09/18at 07:57; Admin Dose 50 MG; Start 02/09/18 at 01:30 IV Flush (NS 10 ml) 10 ml PRN PRN IV IV PROTOCOL; Start 02/09/18 at 18:00 Phenylephrine HCl 40 mg/Dextrose 250 ml @ 37.5 mls/hr TITRATE IV ; Start 02/09/18 at 22:00 Ondansetron HCl (Zofran Inj) 4 mg Q4H PRN IV NAUSEA AND/OR VOMITING Last administered on 02/09/18at 23:29; Admin Dose 4 MG; Start 02/09/18 at 23:00 Norepinephrine 8 mg/Dextrose 250 ml @ 1.88 mls/hr TITRATE IV Last administered on 02/10/18at 10:54; Admin Dose 41.25 MLS/HR; Start 02/10/18 at 09:15 Dextrose 1,000 ml @ 50 mls/hr Q20H IV Last administered on 02/10/18at 12:30; Admin Dose 50 MLS/HR; Start 02/10/18 at 11:00 Vancomycin/Sodium Chloride 250 ml @ 125 mls/hr ONCE ONCE IVPB ; Start 02/10/18 at 16:00; Stop 02/10/18 at 17:59 Amiodarone HCl 900 mg/Dextrose 500 ml @ 0 mls/hr Q0M IV ; Start 02/10/18 at 13:00; Stop 02/11/18 at 12:59 LINDY MARQUEZ NP Feb 10, 2018 13:45
--- NOTE | 2018-02-10 15:10 | PN ---
Date/Time of Note Date/Time of Note DATE: 02/10/18 TIME: 15:08 Assessment/Plan VTE Prophylaxis Risk score (from Nsg)>0 risk: 8 SCD applied (from Nsg): Yes Pharmacological prophylaxis: heparin Lines/Catheters IV Catheter Type (from Nrsg): PICC Line Central line still needed: Yes Urinary Cath still in place: No Assessment/Plan Hospital Course 72 yo female with systolic CHF, DMII, ESRD, A Fib w PPM who presents with hypoglycemia, sepsis, and acute respiratory failure Acute respiratory failure: - Resolved, O2 as needed Hypotension/shock: - Levophed to MAP 65 ESRD: - HD per Dr Nicole Hypoglycemia: - Not clear if related to sepsis vs drug induced but will treat with D50 pushes PRN, serial fingersticks Sepsis with GNR bacteremia: - merrem q12h, limit IVF, abx per ID - Remove permacath per ID? DMII; - hold insulin given hypoglycemia, IV dextrose A Fib: - hold AC Continue ICU care DNR Result Diagram: 02/10/18 0425 02/10/18 0425 Results 24hrs Laboratory Tests Test 02/09/18 16:09 02/09/18 17:40 02/09/18 18:04 02/09/18 19:09 Bedside Glucose 65 L 128 90 Creatine Kinase 27 Creatine Kinase 4.7 Index Creatinine 1.28 Kinase MB (Mass) Troponin I 0.153 *H Test 02/09/18 20:43 02/09/18 21:49 02/09/18 23:34 02/10/18 00:30 Bedside Glucose 93 67 L 153 Sodium Level 139 Potassium Level 4.1 Chloride Level 94 L Carbon Dioxide 28 Level Anion Gap 17 H Blood Urea 36 #H Nitrogen Creatinine 3.76 #H Est Glomerular Filtrat Rate mL/min Glucose Level 91 Calcium Level 8.3 L Magnesium Level 1.9 Creatine Kinase 23 Creatine Kinase 5.3 Index Creatinine 1.22 Kinase MB (Mass) Troponin I 0.158 *H Test 02/10/18 03:01 02/10/18 04:25 02/10/18 04:31 02/10/18 06:24 Bedside Glucose 100 72 86 White Blood 14.1 #H Count Red Blood Count 3.76 L Hemoglobin 12.3 Hematocrit 37.6 Mean Corpuscular 100.0 Volume Mean Corpuscular 32.7 Hemoglobin Mean Corpuscular 32.7 Hemoglobin Estrellita nt Red Cell 18.5 H Distribution Width Platelet Count 67 L Mean Platelet 13.0 H Volume Immature 4.800 H Granulocytes % Neutrophils % Segmented 20 L Neutrophils % (Manual) Band Neutrophils 54 H % (Manual) Lymphocytes % Lymphocytes % 2 L (Manual) Reactive 1 H Lymphocytes % (Manual) Monocytes % Monocytes % 18 H (Manual) Eosinophils % Basophils % Metamyelocytes % 4 H (manual) Promyelocytes % 1 H (Manual) Nucleated Red 0.0 Blood Cells % Immature 0.680 H Granulocytes # Neutrophils # Neutrophils # 3.9 (Manual) Band Neutrophils 7.6 H # Lymphocytes 0.2 L (Manual) Lymphocytes # Reactive 0.1 H Lymphocytes # Monocytes # Monocytes # 2.5 H (Manual) Eosinophils # Basophils # Metamyelocytes # 0.5 H Promyelocytes # 0.1 H Nucleated Red Blood Cells # Platelet DECREASED Estimate Giant Platelets 4 H Poikilocytosis 3+ Anisocytosis 3+ Macrocytosis 3+ Spherocytes 1+ Target Cells 1+ Sodium Level 137 Potassium Level 4.2 Chloride Level 92 L Carbon Dioxide 27 Level Anion Gap 18 H Blood Urea 37 H Nitrogen Creatinine 3.68 H Est Glomerular Filtrat Rate mL/min Glucose Level 98 Calcium Level 8.3 L Phosphorus Level 4.8 Magnesium Level 2.0 Random 9.8 Vancomycin Level Test 02/10/18 09:25 02/10/18 11:04 02/10/18 12:57 Bedside Glucose 77 82 80 Subjective 24 Hr Interval Summary Free Text/Dictation Remains on levophed Alert and interactive Having nausea and no appetite Exam/Review of Systems Vital Signs Vitals Vital Signs Date Temp Pulse Resp B/P (MAP) Pulse Ox O2 O2 Flow FiO2 Time Delivery Rate 02/10/18 137 9 102/87 100 Nasal 4.0 13:15 (92) Cannula 02/10/18 98.1 12:00 02/08/18 100 14:26 Intake and Output 02/09/18 02/09/18 02/10/18 1414:59 22:59 06:59 IntakeIntake Total 217.875 ml 248.125 ml 348.675 ml OutputOutput Total 400 ml 0 ml 0 ml BalanceBalance -182.125 ml 248.125 ml 348.675 ml Exam Alert and interactive No distress RRR Flat neck veins Cachectic and chorincally ill apperancea Permacath No edema Medications Medications Current Medications Digoxin (Digoxin) 0.125 mg DAILY@1300 PO Last administered on 02/09/18at 12:27; Admin Dose 0.125 MG; Start 02/09/18 at 13:00 Levothyroxine Sodium (Synthroid) 25 mcg BEFORE BREAKFAST PO Last administered on 02/10/18at 09:27; Admin Dose 25 MCG; Start 02/09/18 at 07:00 IV Flush (NS 3 ml) 3 ml PER PROTOCOL IV ; Start 02/08/18 at 16:30 Dextrose (D50w Syringe) 50 ml Q10MIN PRN IV hypoglycemia Last administered on 02/09/18at 23:42; Admin Dose 50 ML; Start 02/08/18 at 16:30 Vancomycin HCl (Vanco Iv Per Pharmacy) VANCOMYCIN PER PHARMACY PER PROTOCOL XX ; Start 02/08/18 at 17:00 Meropenem/Sodium Chloride 50 ml @ 100 mls/hr Q24H IVPB Last administered on 02/09/18at 17:31; Admin Dose 100 MLS/HR; Start 02/08/18 at 17:00 Diagnostic Test (Pha) (Accu-Chek) 1 ea Q2 XX Last administered on 02/10/18at 13:03; Admin Dose 1 EA; Start 02/08/18 at 19:00 Tramadol HCl (Ultram) 50 mg Q6H PRN PO MODERATE PAIN LEVEL 4-6 Last administered on 02/09/18at 07:57; Admin Dose 50 MG; Start 02/09/18 at 01:30 IV Flush (NS 10 ml) 10 ml PRN PRN IV IV PROTOCOL; Start 02/09/18 at 18:00 Phenylephrine HCl 40 mg/Dextrose 250 ml @ 37.5 mls/hr TITRATE IV ; Start 02/09/18 at 22:00 Ondansetron HCl (Zofran Inj) 4 mg Q4H PRN IV NAUSEA AND/OR VOMITING Last administered on 02/09/18at 23:29; Admin Dose 4 MG; Start 02/09/18 at 23:00 Norepinephrine 8 mg/Dextrose 250 ml @ 1.88 mls/hr TITRATE IV Last administered on 02/10/18at 10:54; Admin Dose 41.25 MLS/HR; Start 02/10/18 at 09:15 Dextrose 1,000 ml @ 50 mls/hr Q20H IV Last administered on 02/10/18at 12:30; Admin Dose 50 MLS/HR; Start 02/10/18 at 11:00 Vancomycin/Sodium Chloride 250 ml @ 125 mls/hr ONCE ONCE IVPB ; Start 02/10/18 at 16:00; Stop 02/10/18 at 17:59 Amiodarone HCl 900 mg/Dextrose 500 ml @ 0 mls/hr Q0M IV Last administered on 02/10/18at 13:37; Admin Dose 33.4 MLS/HR; Start 02/10/18 at 13:00; Stop 02/11/18 at 12:59 KEANU CROUCH MD Feb 10, 2018 15:10
--- NOTE | 2018-02-10 15:20 | NUR ---
D10 IV Fluid Titration -Dr. Shepherd said ok to titrate D10 fluid from 25ml/he to 50mlhr as patient tolerates to keep blood glucose from dropping to hypoglycemic level. We want to minimize fluid given because pt is a HD pt. so if we can run fluids at 25ml/hr instead of 50 it is preferred.
[2018-02-10] MEDS ORDERED: VANCOMYCIN 750 MG (PMX) 250 ML IVPB ONE (16:00)
[2018-02-10] MEDS: MEROPENEM 500MG/50 ML (PMX) 50 ML IVPB SCH (18:25)
--- NOTE | 2018-02-10 18:39 | NUR ---
EOSS --Pt had several BMs today. -Daughter visited at bedside - HD RN said pt was too unstable to try HD on. She spoke to Dr. Nicole who said the HR might be too high - Spoke to Dr. Lopez. Amiodarone drip was started.1945 is when the next amiodarone conversion will start. -PO Digoxin was held and IV given instead per Dr. Lopez order - PT HR lowered to less than 120s after amiodarone drip running -Pt has episodes of confusion where she thinks she is at home. Daughter confirmed it at her visit as well. - Sent permacath cx to lab -Frequent re-orienting -Encouraged pt to eat food but pt still refuses; - Spoke to Dr. Lopez about holding heparin - Pt continues to have episodes of on/off confusion through shift. -Levophed titrated to parameters - Will continue to monitor pt Addendum: 02/10/18 at 1933 by IVETTE CASTRO RN -Spoke to Dr. shepherd about quadrupling the strength of LEvo so the pt gets less fluid since the pt was not able to get HD today. Concerned about possible fluid volume overload expressed and Dr. Shepherd agreed.
[2018-02-10] MEDS: NORepinephrine 32 MG in DEXTROSE 5% 218 ML IV SCH (20:35)
[2018-02-11] VITALS (93 sets, daily range): BP systolic 41–128; BP diastolic 12–116; PULSE 53–112; RESP 9–23
[2018-02-11] MEDS: DEXTROSE 10% 1,000 ML IV SCH (07:00)
[2018-02-11] MEDS: ACCU-CHEK XX SCH ×4 (07:05→21:00)
--- NOTE | 2018-02-11 07:31 | PN ---
Date/Time of Note Date/Time of Note DATE: 02/11/18 TIME: 07:29 Assessment/Plan VTE Prophylaxis Risk score (from Ns)>0 risk: 8 SCD applied (from Ns): No SCD contraindicated: other Pharmacological prophylaxis: other Lines/Catheters IV Catheter Type (from [facility]): PICC Line Central line still needed: Yes Urinary Cath still in place: No Assessment/Plan Hospital Course SUBJECTIVE: The patient remains critically ill on pressor support. The patient did not have hd yesterday due to tachycardia. The patient had no other acute events noted. No hemoptysis, hematemesis or hematochezia. bp is now stable on a single pressor and ivf d/w ICU nurse and Dr Nicole OBJECTIVE: HEENT: Head is normocephalic. NECK: Supple. HEART: Regular rate. LUNGS: Show diminished breath sounds at the base. ABDOMEN: Soft, nontender to palpation without rebound or guarding. EXTREMITIES: Negative for clubbing, cyanosis, positive edema. DERMATOLOGIC: No rashes. MUSCULOSKELETAL: No joint effusions. NEUROLOGIC: No change in exam. MEDICATIONS: The patient's medications have been reviewed. ASSESSMENT AND PLAN: 1. End-stage renal disease. will continue with hd today 2. Septic shock. Etiology is possibly secondary to urinary tract infection. The patient's urine cultures and blood cultures are positive for gram-negative rods. We will continue IV antibiotics, continue pressor support. Monitor closely. 3. Anemia. Monitor hemoglobin and hematocrit levels. 4. Volume overload. Continue ultrafiltration with hemodialysis if the patient is hemodynamically stable. 5. Mineral bone disorder, monitor calcium and phosphorus levels. 6. Acute encephalopathy, etiology is toxic metabolic, uremic. Continue medical management. Continue ultrafiltration dialysis. Continue to treat underlying sepsis. 7. Acute hypoxemic respiratory failure. The patient remains on nasal cannula. Continue medical management. Continue hemodialysis. 8. Atrial fibrillation. Continue current treatment plan. 9. Diabetes. Continue current insulin regimen. 10. Electrolyte abnormality, resolved. Result Diagram: 02/11/18 0415 02/11/18 0415 Results 24hrs Laboratory Tests Test 02/10/18 09:25 02/10/18 11:04 02/10/18 12:57 02/10/18 15:18 Bedside Glucose 77 82 80 113 Test 02/10/18 17:33 02/10/18 21:26 02/11/18 04:15 Bedside Glucose 121 113 White Blood 17.7 #H Count Red Blood Count 3.64 L Hemoglobin 11.8 L Hematocrit 35.5 L Mean Corpuscular 97.5 Volume Mean Corpuscular 32.4 Hemoglobin Mean Corpuscular 33.2 Hemoglobin Estrellita nt Red Cell 18.2 H Distribution Width Platelet Count 48 #L Mean Platelet 13.1 H Volume Immature 0.400 Granulocytes % Neutrophils % Segmented 69 Neutrophils % (Manual) Band Neutrophils 19 H % (Manual) Lymphocytes % Lymphocytes % 2 L (Manual) Reactive 5 H Lymphocytes % (Manual) Monocytes % Monocytes % 3 (Manual) Eosinophils % Basophils % Metamyelocytes % 1 H (manual) Myelocytes % 1 H (Manual) Nucleated Red 0.0 Blood Cells % Immature 0.070 H Granulocytes # Neutrophils # Neutrophils # 12.8 H (Manual) Band Neutrophils 3.3 H # Lymphocytes 0.3 L (Manual) Lymphocytes # Reactive 0.8 H Lymphocytes # Monocytes # Monocytes # 0.5 (Manual) Eosinophils # Basophils # Metamyelocytes # 0.1 H Myelocytes # 0.1 H Nucleated Red Blood Cells # Platelet DECREASED Estimate Giant Platelets 1 H Polychromasia 1+ Poikilocytosis 2+ Anisocytosis 2+ Target Cells 1+ Ovalocytes 1+ Sodium Level 130 L Potassium Level 4.2 Chloride Level 91 L Carbon Dioxide 24 Level Anion Gap 15 H Blood Urea 42 H Nitrogen Creatinine 3.84 H Est Glomerular Filtrat Rate mL/min Glucose Level 117 Calcium Level 8.7 Phosphorus Level 4.9 Magnesium Level 1.9 Exam/Review of Systems Vital Signs Vitals Vital Signs Date Temp Pulse Resp B/P (MAP) Pulse Ox O2 O2 Flow FiO2 Time Delivery Rate 02/11/18 86 11 106/62 100 06:15 (77) 02/11/18 Nasal 2.0 06:00 Cannula 02/11/18 97.5 04:00 02/08/18 100 14:26 Intake and Output 02/10/18 02/10/18 02/11/18 1515:00 23:00 07:00 IntakeIntake Total 728.67 ml 843.548 ml 398.86 ml BalanceBalance 728.67 ml 843.548 ml 398.86 ml Medications Medications Current Medications Digoxin (Digoxin) 0.125 mg DAILY@1300 PO Last administered on 02/09/18at 12:27; Admin Dose 0.125 MG; Start 02/09/18 at 13:00 Levothyroxine Sodium (Synthroid) 25 mcg BEFORE BREAKFAST PO Last administered on 02/10/18at 09:27; Admin Dose 25 MCG; Start 02/09/18 at 07:00 IV Flush (NS 3 ml) 3 ml PER PROTOCOL IV ; Start 02/08/18 at 16:30 Dextrose (D50w Syringe) 50 ml Q10MIN PRN IV hypoglycemia Last administered on 02/09/18at 23:42; Admin Dose 50 ML; Start 02/08/18 at 16:30 Vancomycin HCl (Vanco Iv Per Pharmacy) VANCOMYCIN PER PHARMACY PER PROTOCOL XX ; Start 02/08/18 at 17:00 Meropenem/Sodium Chloride 50 ml @ 100 mls/hr Q24H IVPB Last administered on 02/10/18at 18:25; Admin Dose 100 MLS/HR; Start 02/08/18 at 17:00 Tramadol HCl (Ultram) 50 mg Q6H PRN PO MODERATE PAIN LEVEL 4-6 Last administere d on 02/09/18at 07:57; Admin Dose 50 MG; Start 02/09/18 at 01:30 IV Flush (NS 10 ml) 10 ml PRN PRN IV IV PROTOCOL; Start 02/09/18 at 18:00 Phenylephrine HCl 40 mg/Dextrose 250 ml @ 37.5 mls/hr TITRATE IV ; Start 02/09/18 at 22:00 Ondansetron HCl (Zofran Inj) 4 mg Q4H PRN IV NAUSEA AND/OR VOMITING Last administered on 02/09/18at 23:29; Admin Dose 4 MG; Start 02/09/18 at 23:00 Dextrose 1,000 ml @ 50 mls/hr Q20H IV Last administered on 02/10/18at 12:30; Admin Dose 50 MLS/HR; Start 02/10/18 at 11:00 Amiodarone HCl 900 mg/Dextrose 500 ml @ 0 mls/hr Q0M IV Last administered on 02/10/18at 13:37; Admin Dose 33.4 MLS/HR; Start 02/10/18 at 13:00; Stop 02/11/18 at 12:59 Diagnostic Test (Pha) (Accu-Chek) 1 ea AC MEALS AND BEDTIME XX Last administered on 02/10/18at 21:33; Admin Dose 1 EA; Start 02/10/18 at 21:00 Norepinephrine 32 mg/Dextrose 250 ml @ 0.47 mls/hr TITRATE IV Last admi nistered on 02/10/18at 20:35; Admin Dose 2.34 MLS/HR; Start 02/10/18 at 19:30 ROSA PAGE DO Feb 11, 2018 07:31
--- NOTE | 2018-02-11 07:33 | NUR ---
EOSS: No acute changes overnight. Per daughter pt. sometimes hallucinates saying she sees "ants" or "little children in the room". Daughter was at bedside until 0000. PICC line dressing was changed due to being soiled. Pt. refusing to wear SCDs, complaining of leg pain as well as does not want her feet elevated. Pt. currently on 2L NC with quad strength Levophed running at 13mcgs. All information has been endorsed to day shift RN- Shannen.
[2018-02-11] MEDS: LEVOTHYROXINE 25 MCG TAB PO SCH (08:25)
[2018-02-11] MEDS: AMIODARONE 900 MG in DEXTROSE 5% 482 ML IV SCH (08:38)
[2018-02-11] MEDS: ONDANSETRON 4 MG INJ IV PRN (09:17)
[2018-02-11] MEDS ORDERED: CEFTRIAXONE 1 GM/50 ML (PMX) 50 ML IVPB SCH (10:00)
[2018-02-11] MEDS ORDERED: GENTAMICIN IV PER PHARMACY XX SCH (10:00)
--- NOTE | 2018-02-11 10:12 | CONS ---
Date/Time of Note Date/Time of Note DATE: 02/11/18 TIME: 09:48 Assessment/Plan Assessment/Plan Hospital Course ID PROGRESS NOTE CURRENT ABX: DAY # => Vanco IV + Merrem 02/11/1841402/11/18414 24H INTERVAL SUMMARY * Resting comfortably current in HD, VSS, no fevers, family present tell me she is confused and hallucinating * WBCs elevated today w/significant Bandemia noted last few days --Bands down today, should see WBC come down * 02/09/18 CXR: There is mild pulmonary edema and atelectasis at the lung bases, worse than seen previously. The lungs are otherwise clear. * Indwelling's: Right chest permacath, PICC line 02/09/18 MICRO * 02/08/18 BCx (+)GNR 2/2 bottles * Organism 1 CITROBACTER FREUNDII C FREUNDII M.I.C. RX --------- --- CEFOTAXIME S CIPROFLOXACIN <=0.25 S GENTAMICIN <=1 S LEVOFLOXACIN 0.5 S TOBRAMYCIN <=1 S TRIMETHOPRIM/SULFAMETHOXAZOLE <=20 S * 02/08/18 URINE CX (+) URINE CULTURE Final Organism 1 GRAM NEGATIVE SUSAN COLONY COUNT >100,000 CFU/ml GNRODS: ID RAOULTELLA PLANTICOLA GNR M.I.C. RX --------- --- CEFAZOLIN <=4 S CEFOTAXIME S CIPROFLOXACIN 1 S GENTAMICIN <=1 S LEVOFLOXACIN 1 S NITROFURANTOIN <=16 S TOBRAMYCIN S TRIMETHOPRIM/SULFAMETHOXAZOLE >=320 R * PHYSICAL EXAMINATION: GENERAL: Afebrile, VSS, Awakens, confused HEENT: AT, NC, anicteric NECK: Supple, trach CHEST: Equal chest rise bilaterally, without dyspnea on observation HEART: Pacing at 82 BPN ABDOMEN: Soft / NT EXTREMITIES: Warm, dry, cyanotic with trace edema and multiple ecchymosis and bruises SKIN: No rash, no diaphoresis ID ASSESSMENT 72 yo F w/PMHx HTN, CVA, CHF, indwelling Bi-V Pacer, admit with: 1. Severe sepsis with shock, possibly also cardiogenic 2. Gram-negative susan bacteremia, cannot rule out line sepsis * 02/08/18 BCx (+)GNR 2/2 bottles * Organism 1 CITROBACTER FREUNDII 3. Gram-negative rods UTI * 02/08/18 URINE CX (+) URINE CULTURE Final Organism 1 GRAM NEGATIVE SUSAN COLONY COUNT >100,000 CFU/ml GNRODS: ID AMARILIS BUTT 4. Rapid atrial fibrillation-> Now paced rhythm 82 BPM on Amiodarone gtt 5. End-stage renal disease, hemodialysis dependent 6. Pancytopenia 7. Hx of Respiratory failure requiring oral intubation/mechanical Vent NOV 2017 (-)MRSA Nares ABX ALLERGIES: NKDA INVASIVES: Right chest permacath, PICC 02/09/18, BiV Pacer CURRENT ABX: DAY == Merrem+ Vanco IV s/p ID RECOMMENDATIONS/PLAN: == NARROW ABX SPECTRUM TODAY * DC Vanco IV + Merrem * Start Ceftriaxone + GENT post HD == REPEAT BCX vi PermCath * She is currently in HD session, repeat BCx ordered for today * RN tells me BCx sent yesterday -- however I do not see a lab order for this, only a RN communication order . Result Diagram: 02/11/18 0415 02/11/18 0415 Results 24hrs Laboratory Tests Test 02/10/18 11:04 02/10/18 12:57 02/10/18 15:18 02/10/18 17:33 Bedside Glucose 82 80 113 121 Test 02/10/18 21:26 02/11/18 04:15 02/11/18 08:24 Bedside Glucose 113 77 White Blood 17.7 #H Count Red Blood Count 3.64 L Hemoglobin 11.8 L Hematocrit 35.5 L Mean Corpuscular 97.5 Volume Mean Corpuscular 32.4 Hemoglobin Mean Corpuscular 33.2 Hemoglobin Estrellita nt Red Cell 18.2 H Distribution Width Platelet Count 48 #L Mean Platelet 13.1 H Volume Immature 0.400 Granulocytes % Neutrophils % Segmented 69 Neutrophils % (Manual) Band Neutrophils 19 H % (Manual) Lymphocytes % Lymphocytes % 2 L (Manual) Reactive 5 H Lymphocytes % (Manual) Monocytes % Monocytes % 3 (Manual) Eosinophils % Basophils % Metamyelocytes % 1 H (manual) Myelocytes % 1 H (Manual) Nucleated Red 0.0 Blood Cells % Immature 0.070 H Granulocytes # Neutrophils # Neutrophils # 12.8 H (Manual) Band Neutrophils 3.3 H # Lymphocytes 0.3 L (Manual) Lymphocytes # Reactive 0.8 H Lymphocytes # Monocytes # Monocytes # 0.5 (Manual) Eosinophils # Basophils # Metamyelocytes # 0.1 H Myelocytes # 0.1 H Nucleated Red Blood Cells # Platelet DECREASED Estimate Giant Platelets 1 H Polychromasia 1+ Poikilocytosis 2+ Anisocytosis 2+ Target Cells 1+ Ovalocytes 1+ Sodium Level 130 L Potassium Level 4.2 Chloride Level 91 L Carbon Dioxide 24 Level Anion Gap 15 H Blood Urea 42 H Nitrogen Creatinine 3.84 H Est Glomerular Filtrat Rate mL/min Glucose Level 117 Calcium Level 8.7 Phosphorus Level 4.9 Magnesium Level 1.9 Consultation Date/Type/Reason Admit Date/Time Feb 08, 2018 at 14:49 Initial Consult Date Requesting Provider: CHASITY MADSEN Exam/Review of Systems Vital Signs Vitals Vital Signs Date Temp Pulse Resp B/P (MAP) Pulse Ox O2 O2 Flow FiO2 Time Delivery Rate 02/11/18 82 08:00 02/11/18 11 106/62 100 06:15 (77) 02/11/18 Nasal 2.0 06:00 Cannula 02/11/18 97.5 04:00 02/08/18 100 14:26 Intake and Output 02/10/18 02/10/18 02/11/18 1414:59 22:59 06:59 IntakeIntake Total 658.53 ml 911.388 ml 445.67 ml OutputOutput Total 0 ml BalanceBalance 658.53 ml 911.388 ml 445.67 ml Medications Medications Current Medications Digoxin (Digoxin) 0.125 mg DAILY@1300 PO Last administered on 02/09/18at 12:27; Admin Dose 0.125 MG; Start 02/09/18 at 13:00 Levothyroxine Sodium (Synthroid) 25 mcg BEFORE BREAKFAST PO Last administered on 02/11/18at 08:25; Admin Dose 25 MCG; Start 02/09/18 at 07:00 IV Flush (NS 3 ml) 3 ml PER PROTOCOL IV ; Start 02/08/18 at 16:30 Dextrose (D50w Syringe) 50 ml Q10MIN PRN IV hypoglycemia Last administered on 02/09/18at 23:42; Admin Dose 50 ML; Start 02/08/18 at 16:30 Vancomycin HCl (Vanco Iv Per Pharmacy) VANCOMYCIN PER PHARMACY PER PROTOCOL XX ; Start 02/08/18 at 17:00 Meropenem/Sodium Chloride 50 ml @ 100 mls/hr Q24H IVPB Last administered on 02/10/18 18:25; Admin Dose 100 MLS/HR; Start 02/08/18 at 17:00 Tramadol HCl (Ultram) 50 mg Q6H PRN PO MODERATE PAIN LEVEL 4-6 Last administered on 02/09/18at 07:57; Admin Dose 50 MG; Start 02/09/18 at 01:30 IV Flush (NS 10 ml) 10 ml PRN PRN IV IV PROTOCOL; Start 02/09/18 at 18:00 Phenylephrine HCl 40 mg/Dextrose 250 ml @ 37.5 mls/hr TITRATE IV ; Start 02/09/18 at 22:00 Ondansetron HCl (Zofran Inj) 4 mg Q4H PRN IV NAUSEA AND/OR VOMITING Last administered on 02/11/18 09:17; Admin Dose 4 MG; Start 02/09/18 at 23:00 Dextrose 1,000 ml @ 50 mls/hr Q20H IV Last administered on 02/10/18 12:30; Admin Dose 50 MLS/HR; Start 02/10/18 at 11:00 Amiodarone HCl 900 mg/Dextrose 500 ml @ 0 mls/hr Q0M IV Last administered on 02/11/18 08:38; Admin Dose 16.66 MLS/HR; Start 02/10/18 at 13:00; Stop 02/11/18 at 12:59 Diagnostic Test (Pha) (Accu-Chek) 1 ea AC MEALS AND BEDTIME XX Last administered on 02/11/18 07:05; Admin Dose 1 EA; Start 02/10/18 at 21:00 Norepinephrine 32 mg/Dextrose 250 ml @ 0.47 mls/hr TITRATE IV Last administered on 02/10/18at 20:35; Admin Dose 2.34 MLS/HR; Start 02/10/18 at 19:30 TORI SCHWARTZ NP Feb 11, 2018 09:58
[2018-02-11] MEDS ORDERED: GENTAMICIN 80 MG/NS (PMX) 50 ML IVPB SCH (12:00)
--- NOTE | 2018-02-11 13:10 | NUR ---
GENT PER RX S/O: 72 y/o F to be started on Gent vs sepsis and UTI. Also on Rocephin. Ht: 4'8" Wt: 52 kg Bun/Cr 42/3.84 Wbc 17.7 Blood cx : citrobacter F. and Urine cx: GNR sensit to cefotax/gent A/P: 1) ESRD on H.D. 2) Will give gent 80 mg after H.D. today, then 60 mg after each dialysis 3) Rx will f/u level
--- NOTE | 2018-02-11 13:27 | CONS ---
Date/Time of Note Date/Time of Note DATE: 02/11/18 TIME: 13:23 Assessment/Plan Assessment/Plan Hospital Course IMPRESSION: 1. Hypotension/shock, likely combination of septic and cardiogenic. 2. Cardiomyopathy with severely depressed left ventricular ejection fraction by outside hospital echo 11/2017 revealing ejection fraction of 20%. Now agin by echo here at H 20% 3. A biventricular ICD with ongoing pacing.- Normal function by interrogation 02/09 4. Atrial fibrillation-also seen on interrogation 02/09 5. End-stage renal disease on hemodialysis. 6. Hyperkalemia. 7. Pancytopenia. 8. Hyponatremia. 9. Coagulopathy. 10. Hypothyroidism. 11.Positive troponin-minimal in the setting of esrd 12. Bacteremia-GNR 14.UTI Recc: -Tele -continue digoxin -Continue IV amio with transition to PO amio -wean levo as tolerated -HD for volume removal as tolerated -Continue abx's and f/u cx data -trend cardiac enzymes Result Diagram: 02/11/18 0415 02/11/18 0415 Results 24hrs Laboratory Tests Test 02/10/18 15:18 02/10/18 17:33 02/10/18 21:26 02/11/18 04:15 Bedside Glucose 113 121 113 White Blood 17.7 #H Count Red Blood Count 3.64 L Hemoglobin 11.8 L Hematocrit 35.5 L Mean Corpuscular 97.5 Volume Mean Corpuscular 32.4 Hemoglobin Mean Corpuscular 33.2 Hemoglobin Estrellita nt Red Cell 18.2 H Distribution Width Platelet Count 48 #L Mean Platelet 13.1 H Volume Immature 0.400 Granulocytes % Neutrophils % Segmented 69 Neutrophils % (Manual) Band Neutrophils 19 H % (Manual) Lymphocytes % Lymphocytes % 2 L (Manual) Reactive 5 H Lymphocytes % (Manual) Monocytes % Monocytes % 3 (Manual) Eosinophils % Basophils % Metamyelocytes % 1 H (manual) Myelocytes % 1 H (Manual) Nucleated Red 0.0 Blood Cells % Immature 0.070 H Granulocytes # Neutrophils # Neutrophils # 12.8 H (Manual) Band Neutrophils 3.3 H # Lymphocytes 0.3 L (Manual) Lymphocytes # Reactive 0.8 H Lymphocytes # Monocytes # Monocytes # 0.5 (Manual) Eosinophils # Basophils # Metamyelocytes # 0.1 H Myelocytes # 0.1 H Nucleated Red Blood Cells # Platelet DECREASED Estimate Giant Platelets 1 H Polychromasia 1+ Poikilocytosis 2+ Anisocytosis 2+ Target Cells 1+ Ovalocytes 1+ Sodium Level 130 L Potassium Level 4.2 Chloride Level 91 L Carbon Dioxide 24 Level Anion Gap 15 H Blood Urea 42 H Nitrogen Creatinine 3.84 H Est Glomerular Filtrat Rate mL/min Glucose Level 117 Calcium Level 8.7 Phosphorus Level 4.9 Magnesium Level 1.9 Test 02/11/18 08:24 02/11/18 11:29 Bedside Glucose 77 86 Consultation Date/Type/Reason Admit Date/Time Feb 08, 2018 at 14:49 Initial Consult Date 02/09/18 Type of Consult cardiology Reason for Consultation CHF/AF Requesting Provider: CHASITY MADSEN Exam/Review of Systems Vital Signs Vitals Vital Signs Date Temp Pulse Resp B/P (MAP) Pulse Ox O2 O2 Flow FiO2 Time Delivery Rate 02/11/18 87 13:15 02/11/18 15 101/70 98 Room Air 11:30 (80) 02/11/18 97.7 08:00 02/11/18 2.0 06:00 02/08/18 100 14:26 Intake and Output 02/10/18 02/10/18 02/11/18 1515:00 23:00 07:00 IntakeIntake Total 728.67 ml 843.548 ml 446.61 ml BalanceBalance 728.67 ml 843.548 ml 446.61 ml Exam Review of Systems: CONSTITUTIONAL: No fevers, chills. PULMONARY: No sob CARDIOVASCULAR: No chest pain/palpitations GASTROINTESTINAL: No nausea/vomiting. GENITOURINARY: No hematuria/dysuria. MUSCULOSKELETAL: No myagias/arthalgias. PSYCHIATRIC: The patient denies depression. NEUROLOGIC: lethargic Constitutional: alert, oriented Psych: no complaints Head: normocephalic ENMT: mucosa pink and moist Neck: supple, jvd (9 cm water) Respiratory: diminished breath sounds Cardiovascular: regular rate and rhythm Gastrointestinal: soft, non-tender Musculoskeletal: muscle tone (normal) Extremities: edema (none) Neurological: other (no focal deficits) Medications Medications Current Medications Digoxin (Digoxin) 0.125 mg DAILY@1300 PO Last administered on 02/09/18at 12:27; Admin Dose 0.125 MG; Start 02/09/18 at 13:00 Levothyroxine Sodium (Synthroid) 25 mcg BEFORE BREAKFAST PO Last administered on 02/11/18at 08:25; Admin Dose 25 MCG; Start 02/09/18 at 07:00 IV Flush (NS 3 ml) 3 ml PER PROTOCOL IV ; Start 02/08/18 at 16:30 Dextrose (D50w Syringe) 50 ml Q10MIN PRN IV hypoglycemia Last administered on 02/09/18at 23:42; Admin Dose 50 ML; Start 02/08/18 at 16:30 Tramadol HCl (Ultram) 50 mg Q6H PRN PO MODERATE PAIN LEVEL 4-6 Last administered on 02/09/18at 07:57; Admin Dose 50 MG; Start 02/09/18 at 01:30 IV Flush (NS 10 ml) 10 ml PRN PRN IV IV PROTOCOL; Start 02/09/18 at 18:00 Phenylephrine HCl 40 mg/Dextrose 250 ml @ 37.5 mls/hr TITRATE IV ; Start 02/09/18 at 22:00 Ondansetron HCl (Zofran Inj) 4 mg Q4H PRN IV NAUSEA AND/OR VOMITING Last administered on 02/11/18at 09:17; Admin Dose 4 MG; Start 02/09/18 at 23:00 Dextrose 1,000 ml @ 50 mls/hr Q20H IV Last administered on 02/10/18at 12:30; Admin Dose 50 MLS/HR; Start 02/10/18 at 11:00 Diagnostic Test (Pha) (Accu-Chek) 1 ea AC MEALS AND BEDTIME XX Last administered on 02/11/18at 11:33; Admin Dose 1 EA; Start 02/10/18 at 21:00 Norepinephrine 32 mg/Dextrose 250 ml @ 0.47 mls/hr TITRATE IV Last administered on 02/10/18at 20:35; Admin Dose 2.34 MLS/HR; Start 02/10/18 at 19:30 Gentamicin Sulfate (Gentamicin Iv Per Pharmacy) GENTAMICIN PER PHARM... NOTE XX ; Start 02/11/18 at 10:00 Gentamicin Sulfate 50 ml @ 100 mls/hr ONCE IVPB ; Start 02/11/18 at 12:00; Stop 02/11/18 at 20:00 Gentamicin Sulfate 60 mg/ Sodium Chloride 51.5 ml @ 103 mls/hr AFTER DIALYSIS IVPB ; Start 02/12/18 at 11:00 Ceftriaxone Sodium 50 ml @ 100 mls/hr Q24H IVPB ; Start 02/11/18 at 16:00 TI ESPINO Feb 11, 2018 13:27
[2018-02-11] MEDS: HEPARIN 1000 UNITS/ML 10 ML INJ CATHETER SCH (14:00)
[2018-02-11] MEDS: DIGOXIN 0.125 MG TAB PO SCH (14:22)
[2018-02-11] MEDS: AMIODARONE 200 MG TAB PO SCH ×2 (14:22→21:17)
--- NOTE | 2018-02-11 15:38 | PN ---
Date/Time of Note Date/Time of Note DATE: 02/11/18 TIME: 15:37 Assessment/Plan VTE Prophylaxis Risk score (from Ns)>0 risk: 9 SCD applied (from Ns): Yes Pharmacological prophylaxis: heparin Lines/Catheters IV Catheter Type (from Nrsg): PICC Line Central line still needed: Yes Urinary Cath still in place: Yes Reason Cath still needed: urinary retention Assessment/Plan Hospital Course 72 yo female with systolic CHF, DMII, ESRD, A Fib w PPM who presents with hypoglycemia, sepsis, and acute respiratory failure Hypotension/shock: - Unclear why still in shock, likely mixed cardiogenic/distributive picture. We will continue Levophed to MAP 65 and wean as tolerated ESRD: - HD per Dr Nicole Hypoglycemia: - Not clear if related to sepsis vs drug induced but will treat with D50 pushes PRN, serial fingersticks Sepsis with GNR bacteremia: - merrem q12h, limit IVF, abx per ID - Remove permacath per ID? DMII; - hold insulin given hypoglycemia, IV dextrose A Fib: - hold AC Continue ICU care DNR Result Diagram: 02/11/18 0415 02/11/18 0415 Results 24hrs Laboratory Tests Test 02/10/18 17:33 02/10/18 21:26 02/11/18 04:15 02/11/18 08:24 Bedside Glucose 121 113 77 White Blood 17.7 #H Count Red Blood Count 3.64 L Hemoglobin 11.8 L Hematocrit 35.5 L Mean Corpuscular 97.5 Volume Mean Corpuscular 32.4 Hemoglobin Mean Corpuscular 33.2 Hemoglobin Estrellita nt Red Cell 18.2 H Distribution Width Platelet Count 48 #L Mean Platelet 13.1 H Volume Immature 0.400 Granulocytes % Neutrophils % Segmented 69 Neutrophils % (Manual) Band Neutrophils 19 H % (Manual) Lymphocytes % Lymphocytes % 2 L (Manual) Reactive 5 H Lymphocytes % (Manual) Monocytes % Monocytes % 3 (Manual) Eosinophils % Basophils % Metamyelocytes % 1 H (manual) Myelocytes % 1 H (Manual) Nucleated Red 0.0 Blood Cells % Immature 0.070 H Granulocytes # Neutrophils # Neutrophils # 12.8 H (Manual) Band Neutrophils 3.3 H # Lymphocytes 0.3 L (Manual) Lymphocytes # Reactive 0.8 H Lymphocytes # Monocytes # Monocytes # 0.5 (Manual) Eosinophils # Basophils # Metamyelocytes # 0.1 H Myelocytes # 0.1 H Nucleated Red Blood Cells # Platelet DECREASED Estimate Giant Platelets 1 H Polychromasia 1+ Poikilocytosis 2+ Anisocytosis 2+ Target Cells 1+ Ovalocytes 1+ Sodium Level 130 L Potassium Level 4.2 Chloride Level 91 L Carbon Dioxide 24 Level Anion Gap 15 H Blood Urea 42 H Nitrogen Creatinine 3.84 H Est Glomerular Filtrat Rate mL/min Glucose Level 117 Calcium Level 8.7 Phosphorus Level 4.9 Magnesium Level 1.9 Test 02/11/18 11:29 Bedside Glucose 86 Subjective 24 Hr Interval Summary Free Text/Dictation Alert and interactive Pleasant, denies symptoms Remains on levophed Exam/Review of Systems Vital Signs Vitals Vital Signs Date Temp Pulse Resp B/P (MAP) Pulse Ox O2 O2 Flow FiO2 Time Delivery Rate 02/11/18 99 17 124/56 98 Room Air 14:40 (78) 02/11/18 97.6 12:00 02/11/18 2.0 06:00 02/08/18 100 14:26 Intake and Output 02/10/18 02/10/18 02/11/18 1515:00 23:00 07:00 IntakeIntake Total 728.67 ml 843.548 ml 446.61 ml BalanceBalance 728.67 ml 843.548 ml 446.61 ml Medications Medications Current Medications Digoxin (Digoxin) 0.125 mg DAILY@1300 PO Last administered on 02/11/18at 14:22; Admin Dose 0.125 MG; Start 02/09/18 at 13:00 Levothyroxine Sodium (Synthroid) 25 mcg BEFORE BREAKFAST PO Last administered on 02/11/18at 08:25; Admin Dose 25 MCG; Start 02/09/18 at 07:00 IV Flush (NS 3 ml) 3 ml PER PROTOCOL IV ; Start 02/08/18 at 16:30 Dextrose (D50w Syringe) 50 ml Q10MIN PRN IV hypoglycemia Last administered on 02/09/18at 23:42; Admin Dose 50 ML; Start 02/08/18 at 16:30 Tramadol HCl (Ultram) 50 mg Q6H PRN PO MODERATE PAIN LEVEL 4-6 Last administer ed on 02/09/18at 07:57; Admin Dose 50 MG; Start 02/09/18 at 01:30 IV Flush (NS 10 ml) 10 ml PRN PRN IV IV PROTOCOL; Start 02/09/18 at 18:00 Phenylephrine HCl 40 mg/Dextrose 250 ml @ 37.5 mls/hr TITRATE IV ; Start 02/09/18 at 22:00 Ondansetron HCl (Zofran Inj) 4 mg Q4H PRN IV NAUSEA AND/OR VOMITING Last administered on 02/11/18 09:17; Admin Dose 4 MG; Start 02/09/18 at 23:00 Dextrose 1,000 ml @ 50 mls/hr Q20H IV Last administered on 02/10/18 12:30; Admin Dose 50 MLS/HR; Start 02/10/18 at 11:00 Diagnostic Test (Pha) (Accu-Chek) 1 ea AC MEALS AND BEDTIME XX Last administered on 02/11/18 11:33; Admin Dose 1 EA; Start 02/10/18 at 21:00 Norepinephrine 32 mg/Dextrose 250 ml @ 0.47 mls/hr TITRATE IV Last administered on 02/10/18 20:35; Admin Dose 2.34 MLS/HR; Start 02/10/18 at 19:30 Gentamicin Sulfate (Gentamicin Iv Per Pharmacy) GENTAMICIN PER PHARM... NOTE XX ; Start 02/11/18 at 10:00 Gentamicin Sulfate 50 ml @ 100 mls/hr ONCE IVPB Last administered on 02/11/18at 15:16; Admin Dose 100 MLS/HR; Start 02/11/18 at 12:00; Stop 02/11/18 at 20:00 Gentamicin Sulfate 60 mg/ Sodium Chloride 51.5 ml @ 103 mls/hr AFTER DIALYSIS IVPB ; Start 02/12/18 at 11:00 Ceftriaxone Sodium 50 ml @ 100 mls/hr Q24H IVPB ; Start 02/11/18 at 16:00 Amiodarone HCl (Cordarone) 200 mg BID PO Last administered on 02/11/18 14:22; Admin Dose 200 MG; Start 02/11/18 at 13:30 Heparin Sodium (Porcine) (Heparin (1000 Units/ml)) 4,000 unit AFTER DIALYSIS CATHETER Last administered on 02/11/18 14:00; Admin Dose 4,000 UNIT; Start 02/11/18 at 14:00 KEANU CROUCH MD Feb 11, 2018 15:38
[2018-02-11] MEDS: CEFTRIAXONE 1 GM/50 ML (PMX) 50 ML IVPB SCH (16:45)
--- NOTE | 2018-02-11 19:45 | NUR ---
EOSS -PT remained stable through shift - 1 BM - Daughter at bedside; -pt had episodes of confusion -Amiodarone drip off - HD today;1 L off - Cx taken from permacath -Pt on room air most of shift -Will continue to mitr pt
[2018-02-12] VITALS (93 sets, daily range): BP systolic 39–125; BP diastolic 11–90; PULSE 73–117; RESP 11–22
[2018-02-12] MEDS: DEXTROSE 10% 1,000 ML IV SCH (01:13)
[2018-02-12] MEDS: NORepinephrine 32 MG in DEXTROSE 5% 218 ML IV SCH (02:41)
[2018-02-12] MEDS: LEVOTHYROXINE 25 MCG TAB PO SCH (06:04)
--- NOTE | 2018-02-12 06:28 | NUR ---
EOS[facility] PATIENT BEING HEMODYNAMICALLY STABLE WHOLE NIGHT ., STILL IN AND OUT CONFUSION, REFUSING TO TAKE MEDICATION AND SOMETIMES REFUSES EVEN TO TOUCH HER TO DO SOME CARE. HAD TO CALL THE DAUGHTER LAST NIGHT SO SHE CAN TALK TO THE PATIENT BECAUSE THE PATIENT WAS REFUSING TO CHECK HIS BLOOD PRESSURE. OTHERWISE STABLE VITAL SIGNS ., STILL AFIB ON THE MONITOR AND BLOOD PRESSURE HOLDING WITH LEVOPHED RUNNING AT 13.5. NEW SKIN TEAR FOUNF ON HER RIGHT ARM. CHARGE NURSE NOTIFIED AND WOUND CONSULT AND DIETARY CONSULT DONE. WILL CONTINUE MONITORING AND WILL ENDORSE TO THE MORNING NURSE
--- NOTE | 2018-02-12 07:05 | PN ---
Date/Time of Note Date/Time of Note DATE: 02/12/18 TIME: 07:03 Assessment/Plan VTE Prophylaxis Risk score (from Nsg)>0 risk: 11 SCD applied (from Nsg): Yes Pharmacological prophylaxis: other Lines/Catheters IV Catheter Type (from Nrsg): PICC Line Central line still needed: Yes Urinary Cath still in place: No Assessment/Plan Hospital Course SUBJECTIVE: The patient remains on pressor support. The patient had no other acute events noted. No hemoptysis, hematemesis or hematochezia. bp is now stable on a single pressor and ivf d/w ICU nurse and Dr Nicole more edematous last hd was yesterday (one liter removed) OBJECTIVE: HEENT: Head is normocephalic. NECK: Supple. HEART: Regular rate. LUNGS: Show diminished breath sounds at the base. ABDOMEN: Soft, nontender to palpation without rebound or guarding. EXTREMITIES: Negative for clubbing, cyanosis, positive edema. DERMATOLOGIC: No rashes. MUSCULOSKELETAL: No joint effusions. NEUROLOGIC: No change in exam. MEDICATIONS: The patient's medications have been reviewed. ASSESSMENT AND PLAN: 1. End-stage renal disease. will continue with hd in am. add midodrine for hypotension 2. Septic shock. Etiology is possibly secondary to urinary tract infection. The patient's urine cultures and blood cultures are positive for gram-negative rods. We will continue IV antibiotics, continue pressor support. Monitor closely. 3. Anemia. Monitor hemoglobin and hematocrit levels. 4. Volume overload. Continue ultrafiltration with hemodialysis if the patient is hemodynamically stable. 5. Mineral bone disorder, monitor calcium and phosphorus levels. 6. Acute encephalopathy, etiology is toxic metabolic, uremic. Continue medical management. Continue ultrafiltration dialysis. Continue to treat underlying sepsis. 7. Acute hypoxemic respiratory failure. The patient remains on nasal cannula. Continue medical management. Continue hemodialysis. 8. Atrial fibrillation. Continue current treatment plan. 9. Diabetes. Continue current insulin regimen. 10. Electrolyte abnormality, resolved. Result Diagram: 02/12/18 0345 02/12/18 0345 Results 24hrs Laboratory Tests Test 02/11/18 08:24 02/11/18 11:29 02/11/18 18:30 02/11/18 21:23 Bedside Glucose 77 86 92 71 Test 02/12/18 03:45 White Blood 12.4 #H Count Red Blood Count 3.77 L Hemoglobin 12.2 Hematocrit 36.2 L Mean Corpuscular 96.0 Volume Mean Corpuscular 32.4 Hemoglobin Mean Corpuscular 33.7 Hemoglobin Estrellita nt Red Cell 18.1 H Distribution Width Platelet Count 39 L Mean Platelet Volume Immature 0.600 H Granulocytes % Neutrophils % 83.9 H Lymphocytes % 7.4 L Monocytes % 7.6 Eosinophils % 0.2 Basophils % 0.3 Nucleated Red 0.2 H Blood Cells % Immature 0.070 H Granulocytes # Neutrophils # 10.4 H Lymphocytes # 0.9 Monocytes # 0.9 Eosinophils # 0.0 Basophils # 0.0 Nucleated Red 0.0 Blood Cells # Sodium Level 133 L Potassium Level 3.8 Chloride Level 92 L Carbon Dioxide 30 Level Anion Gap 11 Blood Urea 24 #H Nitrogen Creatinine 2.51 #H Est Glomerular Filtrat Rate mL/min Glucose Level 116 Calcium Level 8.6 Phosphorus Level 3.1 Magnesium Level 1.9 Exam/Review of Systems Vital Signs Vitals Vital Signs Date Temp Pulse Resp B/P (MAP) Pulse Ox O2 O2 Flow FiO2 Time Delivery Rate 02/12/18 106 14 91/57 (68) 98 06:15 02/12/18 Room Air 06:00 02/12/18 98.5 04:00 02/11/18 21 20:10 02/11/18 2.0 06:00 Intake and Output 02/11/18 02/11/18 02/12/18 1414:59 22:59 06:59 IntakeIntake Total 469.72 ml 549.66 ml 475.64 ml OutputOutput Total 1500 ml BalanceBalance -1030.28 ml 549.66 ml 475.64 ml Medications Medications Current Medications Digoxin (Digoxin) 0.125 mg DAILY@1300 PO Last administered on 02/11/18at 14:22; Admin Dose 0.125 MG; Start 02/09/18 at 13:00 Levothyroxine Sodium (Synthroid) 25 mcg BEFORE BREAKFAST PO Last administered on 02/12/18at 06:04; Admin Dose 25 MCG; Start 02/09/18 at 07:00 IV Flush (NS 3 ml) 3 ml PER PROTOCOL IV ; Start 02/08/18 at 16:30 Dextrose (D50w Syringe) 50 ml Q10MIN PRN IV hypoglycemia Last administered on 02/09/18at 23:42; Admin Dose 50 ML; Start 02/08/18 at 16:30 Tramadol HCl (Ultram) 50 mg Q6H PRN PO MODERATE PAIN LEVEL 4-6 Last administered on 02/09/18 07:57; Admin Dose 50 MG; Start 02/09/18 at 01:30 IV Flush (NS 10 ml) 10 ml PRN PRN IV IV PROTOCOL; Start 02/09/18 at 18:00 Phenylephrine HCl 40 mg/Dextrose 250 ml @ 37.5 mls/hr TITRATE IV ; Start 02/09 at 22:00 Ondansetron HCl (Zofran Inj) 4 mg Q4H PRN IV NAUSEA AND/OR VOMITING Last administered on 02/11/18 09:17; Admin Dose 4 MG; Start 02/09/18 at 23:00 Dextrose 1,000 ml @ 50 mls/hr Q20H IV Last administered on 02/12/18 01:13; Admin Dose 50 MLS/HR; Start 02/10/18 at 11:00 Diagnostic Test (Pha) (Accu-Chek) 1 ea AC MEALS AND BEDTIME XX Last administered on 02/11/18at 17:05; Admin Dose 1 EA; Start 02/10/18 at 21:00 Norepinephrine 32 mg/Dextrose 250 ml @ 0.47 mls/hr TITRATE IV Last administered on 02/12/18 02:41; Admin Dose 6.33 MLS/HR; Start 02/10/18 at 19:30 Gentamicin Sulfate (Gentamicin Iv Per Pharmacy) GENTAMICIN PER PHARM... NOTE XX ; Start 02/11/18 at 10:00 Gentamicin Sulfate 60 mg/ Sodium Chloride 51.5 ml @ 103 mls/hr AFTER DIALYSIS IVPB ; Start 02/12/18 at 11:00 Ceftriaxone Sodium 50 ml @ 100 mls/hr Q24H IVPB Last administered on 02/11/18 16:45; Admin Dose 100 MLS/HR; Start 02/11/18 at 16:00 Amiodarone HCl (Cordarone) 200 mg BID PO Last administered on 02/11/18 21:17; Admin Dose 200 MG; Start 02/11/18 at 13:30 Heparin Sodium (Porcine) (Heparin (1000 Units/ml)) 4,000 unit AFTER DIALYSIS CATHETER Last administered on 12/29/18at 14:00; Admin Dose 4,000 UNIT; Start 02/11/18 at 14:00 ROSA PAGE DO Feb 12, 2018 07:05
[2018-02-12] MEDS: ACCU-CHEK XX SCH ×4 (08:46→20:47)
[2018-02-12] MEDS: MIDODRINE 5 MG TAB PO SCH ×3 (08:47→17:00)
[2018-02-12] MEDS: AMIODARONE 200 MG TAB PO SCH ×2 (08:57→20:47)
--- NOTE | 2018-02-12 12:08 | CONS ---
Date/Time of Note Date/Time of Note DATE: 02/12/18 TIME: 12:05 Assessment/Plan Assessment/Plan Hospital Course IMPRESSION: 1. Hypotension/shock, likely combination of septic and cardiogenic. 2. Cardiomyopathy with severely depressed left ventricular ejection fraction by outside hospital echo 11/2017 revealing ejection fraction of 20%. Now aagin by echo here at [facility] 20% 3. A biventricular ICD with ongoing pacing.- Normal function by interrogation 02/09 4. Atrial fibrillation-also seen on interrogation 02/09 5. End-stage renal disease on hemodialysis. 6. Hyperkalemia. 7. Pancytopenia. 8. Hyponatremia. 9. Coagulopathy. 10. Hypothyroidism. 11.Positive troponin-minimal in the setting of esrd 12. Bacteremia-GNR 14.UTI Recc: -Tele -continue digoxin -Continue PO amio -wean levo as tolerated -HD for volume removal as tolerated -Continue abx's and f/u cx data -trend cardiac enzymes -would consider d/c/wean of midodrine as pure afterload with severe systolic dysfunction Result Diagram: 02/12/18 0345 02/12/18 0345 Results 24hrs Laboratory Tests Test 02/11/18 18:30 02/11/18 21:23 02/12/18 03:45 02/12/18 08:46 Bedside Glucose 92 71 98 White Blood 12.4 #H Count Red Blood Count 3.77 L Hemoglobin 12.2 Hematocrit 36.2 L Mean Corpuscular 96.0 Volume Mean Corpuscular 32.4 Hemoglobin Mean Corpuscular 33.7 Hemoglobin Estrellita nt Red Cell 18.1 H Distribution Width Platelet Count 39 L Mean Platelet Volume Immature 0.600 H Granulocytes % Neutrophils % 83.9 H Lymphocytes % 7.4 L Monocytes % 7.6 Eosinophils % 0.2 Basophils % 0.3 Nucleated Red 0.2 H Blood Cells % Immature 0.070 H Granulocytes # Neutrophils # 10.4 H Lymphocytes # 0.9 Monocytes # 0.9 Eosinophils # 0.0 Basophils # 0.0 Nucleated Red 0.0 Blood Cells # Sodium Level 133 L Potassium Level 3.8 Chloride Level 92 L Carbon Dioxide 30 Level Anion Gap 11 Blood Urea 24 #H Nitrogen Creatinine 2.51 #H Est Glomerular Filtrat Rate mL/min Glucose Level 116 Calcium Level 8.6 Phosphorus Level 3.1 Magnesium Level 1.9 Test 02/12/18 11:59 Bedside Glucose 89 Consultation Date/Type/Reason Admit Date/Time Feb 08, 2018 at 14:49 Initial Consult Date 02/09/18 Type of Consult cardiology Reason for Consultation hypotension/cardiomyopathy Requesting Provider: CHASITY MADSEN Exam/Review of Systems Vital Signs Vitals Vital Signs Date Temp Pulse Resp B/P (MAP) Pulse Ox O2 O2 Flow FiO2 Time Delivery Rate 02/12/18 109 14 112/65 99 Room Air 10:30 (81) 02/12/18 97.9 08:00 02/11/18 21 20:10 02/11/18 2.0 06:00 Intake and Output 02/11/18 02/11/18 02/12/18 1414:59 22:59 06:59 IntakeIntake Total 469.72 ml 549.66 ml 475.64 ml OutputOutput Total 1500 ml BalanceBalance -1030.28 ml 549.66 ml 475.64 ml Exam Review of Systems: CONSTITUTIONAL: No fevers, chills. PULMONARY: No sob CARDIOVASCULAR: No chest pain/palpitations GASTROINTESTINAL: No nausea/vomiting. GENITOURINARY: No hematuria/dysuria. MUSCULOSKELETAL: No myagias/arthalgias. PSYCHIATRIC: The patient denies depression. NEUROLOGIC: No weakness Constitutional: alert Psych: no complaints Head: normocephalic ENMT: mucosa pink and moist Neck: supple, jvd (9 cm water) Respiratory: diminished breath sounds (at bases/B) Cardiovascular: other (tachy, regular rhythm) Gastrointestinal: soft, non-tender Musculoskeletal: muscle weakness (mild generalized) Extremities: edema (trace/B) Neurological: other (No focal deficits) Medications Medications Current Medications Digoxin (Digoxin) 0.125 mg DAILY@1300 PO Last administered on 02/11/18at 14:22; Admin Dose 0.125 MG; Start 02/09/18 at 13:00 Levothyroxine Sodium (Synthroid) 25 mcg BEFORE BREAKFAST PO Last administered on 02/12/18at 06:04; Admin Dose 25 MCG; Start 02/09/18 at 07:00 IV Flush (NS 3 ml) 3 ml PER PROTOCOL IV ; Start 02/08/18 at 16:30 Dextrose (D50w Syringe) 50 ml Q10MIN PRN IV hypoglycemia Last administered on 02/09/18at 23:42; Admin Dose 50 ML; Start 02/08/18 at 16:30 Tramadol HCl (Ultram) 50 mg Q6H PRN PO MODERATE PAIN LEVEL 4-6 Last administered on 02/09/18at 07:57; Admin Dose 50 MG; Start 02/09/18 at 01:30 IV Flush (NS 10 ml) 10 ml PRN PRN IV IV PROTOCOL; Start 02/09/18 at 18:00 Phenylephrine HCl 40 mg/Dextrose 250 ml @ 37.5 mls/hr TITRATE IV ; Start 02/09/18 at 22:00 Ondansetron HCl (Zofran Inj) 4 mg Q4H PRN IV NAUSEA AND/OR VOMITING Last administered on 02/11/18 09:17; Admin Dose 4 MG; Start 02/09/18 at 23:00 Dextrose 1,000 ml @ 50 mls/hr Q20H IV Last administered on 02/12/18 01:13; Admin Dose 50 MLS/HR; Start 02/10/18 at 11:00 Diagnostic Test (Pha) (Accu-Chek) 1 ea AC MEALS AND BEDTIME XX Last administ ered on 02/12/18at 11:30; Admin Dose 1 EA; Start 02/10/18 at 21:00 Norepinephrine 32 mg/Dextrose 250 ml @ 0.47 mls/hr TITRATE IV Last administered on 02/12/18 02:41; Admin Dose 6.33 MLS/HR; Start 02/10/18 at 19:30 Gentamicin Sulfate (Gentamicin Iv Per Pharmacy) GENTAMICIN PER PHARM... NOTE XX ; Start 02/11/18 at 10:00 Gentamicin Sulfate 60 mg/ Sodium Chloride 51.5 ml @ 103 mls/hr AFTER DIALYSIS IVPB ; Start 02/12/18 at 11:00 Ceftriaxone Sodium 50 ml @ 100 mls/hr Q24H IVPB Last administered on 02/11/18 16:45; Admin Dose 100 MLS/HR; Start 02/11/18 at 16:00 Amiodarone HCl (Cordarone) 200 mg BID PO Last administered on 02/11/18 21:17; Admin Dose 200 MG; Start 02/11/18 at 13:30 Heparin Sodium (Porcine) (Heparin (1000 Units/ml)) 4,000 unit AFTER DIALYSIS CATHETER Last administered on 12/29/18at 14:00; Admin Dose 4,000 UNIT; Start 02/11/18 at 14:00 Midodrine (Proamatine) 5 mg TID@,13,17 PO Last administered on 02/12/18at 08:47; Admin Dose 5 MG; Start 02/12/18 at 09:00 TI ESPINO Feb 12, 2018 12:08
--- NOTE | 2018-02-12 12:59 | NUR ---
Nutrition consult: wounds BL heel st 1, multiple skin tears, rt arm skin tear weeping. Poor appetite, refusing meals. Rec renavite and vit C for wounds. Food preferences added. Will continue to monitor.
[2018-02-12] MEDS: DIGOXIN 0.125 MG TAB PO SCH (13:00)
--- NOTE | 2018-02-12 13:03 | CONS ---
Date/Time of Note Date/Time of Note DATE: 02/12/18 TIME: 12:54 Assessment/Plan Assessment/Plan Assessment/Plan IMP: 1. Shock--likely distributive in nature due to sepsis. Although we are targeting too high a MAP and I suspect she can be weaned down (off) significantly 2. Cardiomyopathy 3. Bacteremia--r/o catheter-related infection 4. Afib 5. CKD--on HD 6. Hypoglycemia 7. Anemia RECS: 1. IV abx per ID 2. Consider D/C of permacath if repeat Cx from catheter is positive 3. Titrate levophed gtt targeting MAP 55-60 mm Hg 4. Follow lactate clearance 5. Am labs Result Diagram: 02/12/18 0345 02/12/18 0345 Results 24hrs Laboratory Tests Test 02/11/18 18:30 02/11/18 21:23 02/12/18 03:45 02/12/18 08:46 Bedside Glucose 92 71 98 White Blood 12.4 #H Count Red Blood Count 3.77 L Hemoglobin 12.2 Hematocrit 36.2 L Mean Corpuscular 96.0 Volume Mean Corpuscular 32.4 Hemoglobin Mean Corpuscular 33.7 Hemoglobin Estrellita nt Red Cell 18.1 H Distribution Width Platelet Count 39 L Mean Platelet Volume Immature 0.600 H Granulocytes % Neutrophils % 83.9 H Lymphocytes % 7.4 L Monocytes % 7.6 Eosinophils % 0.2 Basophils % 0.3 Nucleated Red 0.2 H Blood Cells % Immature 0.070 H Granulocytes # Neutrophils # 10.4 H Lymphocytes # 0.9 Monocytes # 0.9 Eosinophils # 0.0 Basophils # 0.0 Nucleated Red 0.0 Blood Cells # Sodium Level 133 L Potassium Level 3.8 Chloride Level 92 L Carbon Dioxide 30 Level Anion Gap 11 Blood Urea 24 #H Nitrogen Creatinine 2.51 #H Est Glomerular Filtrat Rate mL/min Glucose Level 116 Calcium Level 8.6 Phosphorus Level 3.1 Magnesium Level 1.9 Test 02/12/18 11:59 Bedside Glucose 89 Consultation Date/Type/Reason Admit Date/Time Feb 08, 2018 at 14:49 Date of Consultation: Feb 12, 2018 Type of Consult Pulm/CCM Reason for Consultation Persistent shock Hx of Present Illness Briefly, this is a 72-year-old female with a history of systolic congestive heart failure, cardiomyopathy with severely depressed left ventricular ejection fraction of 20% , atrial fibrillation, not on systemic anticoagulation due to a bleeding diathesis, permanent pacemaker, believed to be a biventricular pacemaker, CKD on HD, admitted 4 days prior with profound hypoglyemic requiring D50. He was admitted to the ICU for shock, found to have gram negative urosepsis and bacteremia. He has remained on levophed gtt. Subjective hx not possible: pt non-verbal Past Medical History Medical History: congestive heart failure, diabetes, renal disease Medications Current Medications Digoxin (Digoxin) 0.125 mg DAILY@1300 PO Last administered on 02/11/18at 14:22; Admin Dose 0.125 MG; Start 02/09/18 at 13:00 Levothyroxine Sodium (Synthroid) 25 mcg BEFORE BREAKFAST PO Last administered on 02/12/18 06:04; Admin Dose 25 MCG; Start 02/09/18 at 07:00 IV Flush (NS 3 ml) 3 ml PER PROTOCOL IV ; Start 02/08/18 at 16:30 Dextrose (D50w Syringe) 50 ml Q10MIN PRN IV hypoglycemia Last administered on 02/09/18at 23:42; Admin Dose 50 ML; Start 02/08/18 at 16:30 Tramadol HCl (Ultram) 50 mg Q6H PRN PO MODERATE PAIN LEVEL 4-6 Last administered on 02/09/18at 07:57; Admin Dose 50 MG; Start 02/09/18 at 01:30 IV Flush (NS 10 ml) 10 ml PRN PRN IV IV PROTOCOL; Start 02/09/18 at 18:00 Phenylephrine HCl 40 mg/Dextrose 250 ml @ 37.5 mls/hr TITRATE IV ; Start 02/09/18 at 22:00 Ondansetron HCl (Zofran Inj) 4 mg Q4H PRN IV NAUSEA AND/OR VOMITING Last administered on 02/11/18at 09:17; Admin Dose 4 MG; Start 02/09/18 at 23:00 Dextrose 1,000 ml @ 50 mls/hr Q20H IV Last administered on 02/12/18at 01:13; Admin Dose 50 MLS/HR; Start 02/10/18 at 11:00 Diagnostic Test (Pha) (Accu-Chek) 1 ea AC MEALS AND BEDTIME XX Last administered on 02/12/18at 11:30; Admin Dose 1 EA; Start 02/10/18 at 21:00 Norepinephrine 32 mg/Dextrose 250 ml @ 0.47 mls/hr TITRATE IV Last administered on 02/12/18at 02:41; Admin Dose 6.33 MLS/HR; Start 02/10/18 at 19:30 Gentamicin Sulfate (Gentamicin Iv Per Pharmacy) GENTAMICIN PER PHARM... NOTE XX ; Start 02/11/18 at 10:00 Gentamicin Sulfate 60 mg/ Sodium Chloride 51.5 ml @ 103 mls/hr AFTER DIALYSIS IVPB ; Start 02/12/18 at 11:00 Ceftriaxone Sodium 50 ml @ 100 mls/hr Q24H IVPB Last administered on 02/11/18at 16:45; Admin Dose 100 MLS/HR; Start 02/11/18 at 16:00 Amiodarone HCl (Cordarone) 200 mg BID PO Last administered on 02/11/18at 21:17; Admin Dose 200 MG; Start 02/11/18 at 13:30 Heparin Sodium (Porcine) (Heparin (1000 Units/ml)) 4,000 unit AFTER DIALYSIS CATHETER Last administered on 02/11/18at 14:00; Admin Dose 4,000 UNIT; Start 02/11/18 at 14:00 Midodrine (Proamatine) 5 mg TID@09,13,17 PO Last administered on 02/12/18at 08:47; Admin Dose 5 MG; Start 02/12/18 at 09:00 Allergies: Coded Allergies: No Known Allergy (Unverified , 02/08/18) Past Surgical History Past Surgical Hx: no surgical history Social History Alcohol Use: none Smoking Status: Never smoker Drug Use: none Exam/Review of Systems Vital Signs Vitals Vital Signs Date Temp Pulse Resp B/P (MAP) Pulse Ox O2 O2 Flow FiO2 Time Delivery Rate 02/12/18 76 18 102/67 99 Room Air 12:30 (79) 02/12/18 98.0 12:00 02/11/18 21 20:10 02/11/18 2.0 06:00 Intake and Output 02/11/18 02/11/18 02/12/18 1515:00 23:00 07:00 IntakeIntake Total 453.06 ml 574.90 ml 419.31 ml OutputOutput Total 1500 ml BalanceBalance -1046.94 ml 574.90 ml 419.31 ml Exam Constitutional: other (confused ) Psych: confusion Head: normocephalic, atraumatic Eyes: nl conjunctiva, EOMI, nl lids, nl sclera ENMT: nl external ears & nose, nl lips & teeth, nl nasal mucosa & septum, mucosa pink and moist Neck: supple, non-tender, jvd Respiratory: clear to auscultation, diminished breath sounds Cardiovascular: irregular rhythm, jugular venous distention (JVD), systolic murmur Gastrointestinal: soft, nl liver, spleen, non-tender Extremities: normal pulses, edema Neurological: confused, DTR's symmetric Medications Medications Current Medications Digoxin (Digoxin) 0.125 mg DAILY@1300 PO Last administered on 02/11/18at 14:22; Admin Dose 0.125 MG; Start 02/09/18 at 13:00 Levothyroxine Sodium (Synthroid) 25 mcg BEFORE BREAKFAST PO Last administered on 02/12/18at 06:04; Admin Dose 25 MCG; Start 02/09/18 at 07:00 IV Flush (NS 3 ml) 3 ml PER PROTOCOL IV ; Start 02/08/18 at 16:30 Dextrose (D50w Syringe) 50 ml Q10MIN PRN IV hypoglycemia Last administered on 02/09/18at 23:42; Admin Dose 50 ML; Start 02/08/18 at 16:30 Tramadol HCl (Ultram) 50 mg Q6H PRN PO MODERATE PAIN LEVEL 4-6 Last administered on 02/09/18at 07:57; Admin Dose 50 MG; Start 02/09/18 at 01:30 IV Flush (NS 10 ml) 10 ml PRN PRN IV IV PROTOCOL; Start 02/09/18 at 18:00 Phenylephrine HCl 40 mg/Dextrose 250 ml @ 37.5 mls/hr TITRATE IV ; Start at 22:00 Ondansetron HCl (Zofran Inj) 4 mg Q4H PRN IV NAUSEA AND/OR VOMITING Last administered on 02/11/18at 09:17; Admin Dose 4 MG; Start 02/09/18 at 23:00 Dextrose 1,000 ml @ 50 mls/hr Q20H IV Last administered on 02/12/18at 01:13; Admin Dose 50 MLS/HR; Start 02/10/18 at 11:00 Diagnostic Test (Pha) (Accu-Chek) 1 ea AC MEALS AND BEDTIME XX Last administered on 02/12/18at 11:30; Admin Dose 1 EA; Start 02/10/18 at 21:00 Norepinephrine 32 mg/Dextrose 250 ml @ 0.47 mls/hr TITRATE IV Last administered on 02/12/18at 02:41; Admin Dose 6.33 MLS/HR; Start 02/10/18 at 19:30 Gentamicin Sulfate (Gentamicin Iv Per Pharmacy) GENTAMICIN PER PHARM... NOTE XX ; Start 02/11/18 at 10:00 Gentamicin Sulfate 60 mg/ Sodium Chloride 51.5 ml @ 103 mls/hr AFTER DIALYSIS IVPB ; Start 02/12/18 at 11:00 Ceftriaxone Sodium 50 ml @ 100 mls/hr Q24H IVPB Last administered on 02/11/18at 16:45; Admin Dose 100 MLS/HR; Start 02/11/18 at 16:00 Amiodarone HCl (Cordarone) 200 mg BID PO Last administered on 02/11/18 21:17; Admin Dose 200 MG; Start 02/11/18 at 13:30 Heparin Sodium (Porcine) (Heparin (1000 Units/ml)) 4,000 unit AFTER DIALYSIS CATHETER Last administered on 02/11/18 14:00; Admin Dose 4,000 UNIT; Start 02/11/18 at 14:00 Midodrine (Proamatine) 5 mg TID@,,17 PO Last administered on 02/12/18 08:47; Admin Dose 5 MG; Start 02/12/18 at 09:00 VITO MINA MD Feb 12, 2018 13:03
--- NOTE | 2018-02-12 14:24 | PN ---
Date/Time of Note Date/Time of Note DATE: 02/12/18 TIME: 14:18 Assessment/Plan VTE Prophylaxis Risk score (from Nsg)>0 risk: 7 SCD applied (from Nsg): Yes Pharmacological prophylaxis: heparin Lines/Catheters IV Catheter Type (from Nrsg): PICC Line Central line still needed: Yes Urinary Cath still in place: No Assessment/Plan Hospital Course 72 yo female with systolic CHF, DMII, ESRD, A Fib w PPM who presents with hypoglycemia, sepsis, and acute respiratory failure. Currently still requiring vasopressors to maintain MAP for unclear reasons, perhaps has baseline hypotension Hypotension/shock: - Unclear why still in shock, likely a distributive picture given warm extremities. We will continue Levophed to MAP 55 and wean as tolerated ESRD: - HD per Dr Nicole Hypoglycemia: - Not clear if related to sepsis vs drug induced but will treat with D50 pushes PRN, serial fingersticks Sepsis with GNR bacteremia: - merrem q12h, limit IVF, abx per ID - Remove permacath per ID? DMII; - hold insulin given hypoglycemia, IV dextrose PRN A Fib: - Amiodarone per Dr Lopez - hold AC Continue ICU care DNR Result Diagram: 02/12/18 0345 02/12/18 0345 Results 24hrs Laboratory Tests Test 02/11/18 18:30 02/11/18 21:23 02/12/18 03:45 02/12/18 08:46 Bedside Glucose 92 71 98 White Blood 12.4 #H Count Red Blood Count 3.77 L Hemoglobin 12.2 Hematocrit 36.2 L Mean Corpuscular 96.0 Volume Mean Corpuscular 32.4 Hemoglobin Mean Corpuscular 33.7 Hemoglobin Estrellita nt Red Cell 18.1 H Distribution Width Platelet Count 39 L Mean Platelet Volume Immature 0.600 H Granulocytes % Neutrophils % 83.9 H Lymphocytes % 7.4 L Monocytes % 7.6 Eosinophils % 0.2 Basophils % 0.3 Nucleated Red 0.2 H Blood Cells % Immature 0.070 H Granulocytes # Neutrophils # 10.4 H Lymphocytes # 0.9 Monocytes # 0.9 Eosinophils # 0.0 Basophils # 0.0 Nucleated Red 0.0 Blood Cells # Sodium Level 133 L Potassium Level 3.8 Chloride Level 92 L Carbon Dioxide 30 Level Anion Gap 11 Blood Urea 24 #H Nitrogen Creatinine 2.51 #H Est Glomerular Filtrat Rate mL/min Glucose Level 116 Calcium Level 8.6 Phosphorus Level 3.1 Magnesium Level 1.9 Test 02/12/18 11:59 Bedside Glucose 89 Subjective 24 Hr Interval Summary Free Text/Dictation Not much change to clinical status Remains a bit confused but converstant, denies comlaints to me Remains on levophed Exam/Review of Systems Vital Signs Vitals Vital Signs Date Temp Pulse Resp B/P (MAP) Pulse Ox O2 O2 Flow FiO2 Time Delivery Rate 02/12/18 76 18 102/67 99 Room Air 12:30 (79) 02/12/18 98.0 12:00 02/11/18 21 20:10 02/11/18 2.0 06:00 Intake and Output 02/11/18 02/11/18 02/12/18 1515:00 23:00 07:00 IntakeIntake Total 453.06 ml 574.90 ml 450.64 ml OutputOutput Total 1500 ml BalanceBalance -1046.94 ml 574.90 ml 450.64 ml Exam Alert, interactive Dry oral mucosa Appears well, no distress Irreg Flat neck veins Permacath in place Abd soft nt nd Ext wihtout edema, warm and well perfused Medications Medications Current Medications Digoxin (Digoxin) 0.125 mg DAILY@1300 PO Last administered on 02/11/18at 14:22; Admin Dose 0.125 MG; Start 02/09/18 at 13:00 Levothyroxine Sodium (Synthroid) 25 mcg BEFORE BREAKFAST PO Last administered on 02/12/18at 06:04; Admin Dose 25 MCG; Start 02/09/18 at 07:00 IV Flush (NS 3 ml) 3 ml PER PROTOCOL IV ; Start 02/08/18 at 16:30 Dextrose (D50w Syringe) 50 ml Q10MIN PRN IV hypoglycemia Last administered on 02/09/18at 23:42; Admin Dose 50 ML; Start 02/08/18 at 16:30 Tramadol HCl (Ultram) 50 mg Q6H PRN PO MODERATE PAIN LEVEL 4-6 Last administered on 02/09/18at 07:57; Admin Dose 50 MG; Start 02/09/18 at 01:30 IV Flush (NS 10 ml) 10 ml PRN PRN IV IV PROTOCOL; Start 02/09/18 at 18:00 Phenylephrine HCl 40 mg/Dextrose 250 ml @ 37.5 mls/hr TITRATE IV ; Start 02/09/18 at 22:00 Ondansetron HCl (Zofran Inj) 4 mg Q4H PRN IV NAUSEA AND/OR VOMITING Last administered on 02/11/18 09:17; Admin Dose 4 MG; Start 02/09/18 at 23:00 Dextrose 1,000 ml @ 50 mls/hr Q20H IV Last administered on 02/12/18 01:13; Admin Dose 50 MLS/HR; Start 02/10/18 at 11:00 Diagnostic Test (Pha) (Accu-Chek) 1 ea AC MEALS AND BEDTIME XX Last admin istered on 02/12/18 11:30; Admin Dose 1 EA; Start 02/10/18 at 21:00 Norepinephrine 32 mg/Dextrose 250 ml @ 0.47 mls/hr TITRATE IV Last administered on 02/12/18 02:41; Admin Dose 6.33 MLS/HR; Start 02/10/18 at 19:30 Gentamicin Sulfate (Gentamicin Iv Per Pharmacy) GENTAMICIN PER PHARM... NOTE XX ; Start 02/11/18 at 10:00 Gentamicin Sulfate 60 mg/ Sodium Chloride 51.5 ml @ 103 mls/hr AFTER DIALYSIS IVPB ; Start 02/12/18 at 11:00 Ceftriaxone Sodium 50 ml @ 100 mls/hr Q24H IVPB Last administered on 02/11/18 16:45; Admin Dose 100 MLS/HR; Start 02/11/18 at 16:00 Amiodarone HCl (Cordarone) 200 mg BID PO Last administered on 02/11/18 21:17; Admin Dose 200 MG; Start 02/11/18 at 13:30 Heparin Sodium (Porcine) (Heparin (1000 Units/ml)) 4,000 unit AFTER DIALYSIS CATHETER Last administered on 02/11/18 14:00; Admin Dose 4,000 UNIT; Start 02/11/18 at 14:00 Midodrine (Proamatine) 5 mg TID@09,13,17 PO Last administered on 02/12/18 08:47; Admin Dose 5 MG; Start 02/12/18 at 09:00 KEANU CROUCH MD Feb 12, 2018 14:24
[2018-02-12] MEDS: CEFTRIAXONE 1 GM/50 ML (PMX) 50 ML IVPB SCH (16:05)
--- NOTE | 2018-02-12 18:23 | NUR ---
EOSS -Spoke to Daughter about pt's condition. -Received Pt stable - Attempted to give PO meds, however, pt was very lethargic and not safe to give meds early in shift. -Later in shift pt refused to take PO meds -Providers notified. Dr. meng said to hold PO meds till she can tolerate it. Dr. Shepherd agrees - HD scheduled for tomorrow -New MAP parameters scheduled to keep MAP btwn 55-60 -Will continue to monitor pt
--- NOTE | 2018-02-12 18:43 | CONS ---
Date/Time of Note Date/Time of Note DATE: 02/12/18 TIME: 18:39 Assessment/Plan Assessment/Plan Hospital Course ID PROGRESS NOTE CURRENT ABX: DAY # => Ceftriaxone + GENT post HD s/p Vanco IV + Merrem 02/12/18 0345 02/12/18 0345 24H INTERVAL SUMMARY * Still on vasopressors -- s/p HD today, no fevers, WBC down today * Indwelling's: Right chest permacath, PICC line 02/09/18 MICRO * 02/08/18 BCx (+)GNR 2/2 bottles * Organism 1 CITROBACTER FREUNDII C FREUNDII M.I.C. RX --------- --- CEFOTAXIME S CIPROFLOXACIN <=0.25 S GENTAMICIN <=1 S LEVOFLOXACIN 0.5 S TOBRAMYCIN <=1 S TRIMETHOPRIM/SULFAMETHOXAZOLE <=20 S * 02/08/18 URINE CX (+) URINE CULTURE Final Organism 1 GRAM NEGATIVE SUSAN COLONY COUNT >100,000 CFU/ml GNRODS: ID RAOULTELLA PLANTKATH GNR M.I.C. RX --------- --- CEFAZOLIN <=4 S CEFOTAXIME S CIPROFLOXACIN 1 S GENTAMICIN <=1 S LEVOFLOXACIN 1 S NITROFURANTOIN <=16 S TOBRAMYCIN S TRIMETHOPRIM/SULFAMETHOXAZOLE >=320 R * PHYSICAL EXAMINATION: GENERAL: Afebrile, VSS, Awakens, confused HEENT: AT, NC, anicteric NECK: Supple, trach CHEST: Equal chest rise bilaterally, without dyspnea on observation HEART: Pacing at 82 BPN ABDOMEN: Soft / NT EXTREMITIES: Warm, dry, cyanotic with trace edema and multiple ecchymosis and bruises SKIN: No rash, no diaphoresis ID ASSESSMENT 72 yo F w/PMHx HTN, CVA, CHF, indwelling Bi-V Pacer, admit with: 1. Severe sepsis with shock, possibly also cardiogenic 2. Gram-negative susan bacteremia, cannot rule out line sepsis * 02/08/18 BCx (+)GNR 2/2 bottles * Organism 1 CITROBACTER FREUNDII 3. Gram-negative rods UTI * 02/08/18 URINE CX (+) URINE CULTURE Final Organism 1 GRAM NEGATIVE SUSAN COLONY COUNT >100,000 CFU/ml GNRODS: ID RAOULTELLA PLANTICOLA 4. Rapid atrial fibrillation-> Now paced rhythm 82 BPM on Amiodarone gtt 5. End-stage renal disease, hemodialysis dependent 6. Pancytopenia 7. Hx of Respiratory failure requiring oral intubation/mechanical Vent NOV 2017 (-)MRSA Nares ABX ALLERGIES: NKDA INVASIVES: Right chest permacath, PICC 02/09/18, BiV Pacer CURRENT ABX: DAY == Ceftriaxone + GENT post HD s/p Merrem+ Vanco IV s/p ID RECOMMENDATIONS/PLAN: == Continue on current NARROWED ABX SPECTRUM Result Diagram: 02/12/18 0345 02/12/18 0345 Results 24hrs Laboratory Tests Test 02/11/18 21:23 02/12/18 03:45 02/12/18 08:46 02/12/18 11:59 Bedside Glucose 71 98 89 White Blood 12.4 #H Count Red Blood Count 3.77 L Hemoglobin 12.2 Hematocrit 36.2 L Mean Corpuscular 96.0 Volume Mean Corpuscular 32.4 Hemoglobin Mean Corpuscular 33.7 Hemoglobin Estrellita nt Red Cell 18.1 H Distribution Width Platelet Count 39 L Mean Platelet Volume Immature 0.600 H Granulocytes % Neutrophils % 83.9 H Lymphocytes % 7.4 L Monocytes % 7.6 Eosinophils % 0.2 Basophils % 0.3 Nucleated Red 0.2 H Blood Cells % Immature 0.070 H Granulocytes # Neutrophils # 10.4 H Lymphocytes # 0.9 Monocytes # 0.9 Eosinophils # 0.0 Basophils # 0.0 Nucleated Red 0.0 Blood Cells # Sodium Level 133 L Potassium Level 3.8 Chloride Level 92 L Carbon Dioxide 30 Level Anion Gap 11 Blood Urea 24 #H Nitrogen Creatinine 2.51 #H Est Glomerular Filtrat Rate mL/min Glucose Level 116 Calcium Level 8.6 Phosphorus Level 3.1 Magnesium Level 1.9 Test 02/12/18 17:22 Bedside Glucose 81 Consultation Date/Type/Reason Admit Date/Time Feb 08, 2018 at 14:49 Initial Consult Date Requesting Provider: CHASITY MADSEN Exam/Review of Systems Vital Signs Vitals Vital Signs Date Temp Pulse Resp B/P (MAP) Pulse Ox O2 O2 Flow FiO2 Time Delivery Rate 02/12/18 95 16 102/66 99 18:15 (78) 02/12/18 Room Air 18:00 02/12/18 98.2 16:00 02/11/18 21 20:10 02/11/18 2.0 06:00 Intake and Output 02/11/18 02/11/18 02/12/18 1515:00 23:00 07:00 IntakeIntake Total 453.06 ml 574.90 ml 450.64 ml OutputOutput Total 1500 ml BalanceBalance -1046.94 ml 574.90 ml 450.64 ml Medications Medications Current Medications Digoxin (Digoxin) 0.125 mg DAILY@1300 PO Last administered on 02/11/18 14:22; Admin Dose 0.125 MG; Start 02/09/18 at 13:00 Levothyroxine Sodium (Synthroid) 25 mcg BEFORE BREAKFAST PO Last administered on 02/12/18 06:04; Admin Dose 25 MCG; Start 02/09/18 at 07:00 IV Flush (NS 3 ml) 3 ml PER PROTOCOL IV ; Start 02/08/18 at 16:30 Dextrose (D50w Syringe) 50 ml Q10MIN PRN IV hypoglycemia Last administered on 02/09/18at 23:42; Admin Dose 50 ML; Start 02/08/18 at 16:30 Tramadol HCl (Ultram) 50 mg Q6H PRN PO MODERATE PAIN LEVEL 4-6 Last administered on 02/09/18at 07:57; Admin Dose 50 MG; Start 02/09/18 at 01:30 IV Flush (NS 10 ml) 10 ml PRN PRN IV IV PROTOCOL; Start 02/09/18 at 18:00 Phenylephrine HCl 40 mg/Dextrose 250 ml @ 37.5 mls/hr TITRATE IV ; Start 02/09/18 at 22:00 Ondansetron HCl (Zofran Inj) 4 mg Q4H PRN IV NAUSEA AND/OR VOMITING Last administered on 02/11/18 09:17; Admin Dose 4 MG; Start 02/09/18 at 23:00 Dextrose 1,000 ml @ 50 mls/hr Q20H IV Last administered on 02/12/18 01:13; Admin Dose 50 MLS/HR; Start 02/10/18 at 11:00 Diagnostic Test (Pha) (Accu-Chek) 1 ea AC MEALS AND BEDTIME XX Last administered on 02/12/18at 17:22; Admin Dose 1 EA; Start 02/10/18 at 21:00 Norepinephrine 32 mg/Dextrose 250 ml @ 0.47 mls/hr TITRATE IV Last administered on 02/12/18at 02:41; Admin Dose 6.33 MLS/HR; Start 02/10/18 at 19:30 Gentamicin Sulfate (Gentamicin Iv Per Pharmacy) GENTAMICIN PER PHARM... NOTE XX ; Start 02/11/18 at 10:00 Gentamicin Sulfate 60 mg/ Sodium Chloride 51.5 ml @ 103 mls/hr AFTER DIALYSIS IVPB ; Start 02/12/18 at 11:00 Ceftriaxone Sodium 50 ml @ 100 mls/hr Q24H IVPB Last administered on 02/12/18at 16:05; Admin Dose 100 MLS/HR; Start 02/11/18 at 16:00 Amiodarone HCl (Cordarone) 200 mg BID PO Last administered on 02/11/18at 21:17; Admin Dose 200 MG; Start 02/11/18 at 13:30 Heparin Sodium (Porcine) (Heparin (1000 Units/ml)) 4,000 unit AFTER DIALYSIS CATHETER Last administered on 02/11/18at 14:00; Admin Dose 4,000 UNIT; Start 02/11/18 at 14:00 Midodrine (Proamatine) 5 mg TID@,13,17 PO Last administered on 02/12/18at 08:47; Admin Dose 5 MG; Start 02/12/18 at 09:00 TORI SCHWARTZ NP Feb 12, 2018 18:43
[2018-02-13] VITALS (75 sets, daily range): BP systolic 55–129; BP diastolic 38–114; PULSE 80–104; RESP 13–31
[2018-02-13] MEDS: LEVOTHYROXINE 25 MCG TAB PO SCH (06:05)
--- NOTE | 2018-02-13 06:29 | NUR ---
EOSS: Pt remains altered. Daughter at bedside during beginning of shift. Levophed drip titrated down base on MAP. Afebrile throughout shift. Crushed pills and gave with apple sauce, pt tolerated well. Full bed bath completed, all linens changed, repositioned q2h, bed in lowest position.
--- NOTE | 2018-02-13 06:35 | NUR ---
02/128- Spoke to Any from [facility] about pt scheduled HD for 02/13. Conf # [id number]--Y
[2018-02-13] MEDS: ACCU-CHEK XX SCH ×3 (07:05→16:31)
[2018-02-13] MEDS: MIDODRINE 5 MG TAB PO SCH ×3 (08:24→16:26)
[2018-02-13] MEDS: AMIODARONE 200 MG TAB PO SCH ×2 (08:24→20:47)
--- NOTE | 2018-02-13 08:33 | PN ---
DATE: 02/13/2018 SUBJECTIVE: The patient remains critically ill on pressor support. The patient is currently on room air. No other events noted. No hemoptysis, hematemesis, or hematochezia. OBJECTIVE: VITAL SIGNS: Blood pressure is 97/60, respiration 19, pulse 85. HEENT: Head is normocephalic. NECK: Supple. HEART: Regular rate. LUNGS: Show diminished breath sounds at the base. ABDOMEN: Soft, nontender to palpation without rebound or guarding. EXTREMITIES: Negative for clubbing, cyanosis. Positive edema. DERMATOLOGIC: No rashes. MUSCULOSKELETAL: No joint effusion. NEUROLOGIC: No change in exam. MEDICATIONS: Reviewed. LABORATORY DATA: From 02/12/2018 was reviewed. CBC from 02/13/2018 shows a white count 7.9, hemoglo bin 12.4, platelet count 33. The patient's studies have been reviewed. Microbiology studies have be en reviewed. The patient's urine cultures and blood cultures were positive. Repeat blood cultures h ave been negative to date. ASSESSMENT AND PLAN: 1. End-stage renal disease. The patient is on dialysis Tuesday, Tuesday, Tuesday. Plan is for hemo dialysis today. We will dialyze 3 hours 2k bath, calcium 2.5, ultrafiltrate as tolerated. 2. Septic shock, etiology is secondary to urinary tract infection and bacteremia. The patient's rep eat cultures have been negative to date. We will continue to monitor closely. Continue IV antibioti cs, continue to wean off pressor support. We will up titrate midodrine as needed. We will follow up with Infectious Disease. 3. Anemia. Continue to monitor hemoglobin and hematocrit levels. We will give Epogen as needed. 4. Volume overload. Continue ultrafiltration dialysis. The patient is hemodynamically stable. 5. Mineral bone disorder, monitor calcium and phosphorus levels. 6. Acute encephalopathy, etiology is toxic metabolic, uremic. Continue medical management. Continu e to treat underlying sepsis. 7. Acute hypoxemic respiratory failure. The patient is clinically improving on nasal cannula. Cont inue current treatment plan. 8. Atrial fibrillation. Continue current medical management. 9. Diabetes. Continue current insulin regimen. 10. Hypernatremia. Continue to monitor. Continue dialysis on a 140 sodium bath. Dictated By: ROYAL VAZQUEZ/MILA Conf#: [id number] [facility]#: [id number] CC: KEANU CROUCH MD; TI ESPINO MD;*[facility]*
[2018-02-13] MEDS: DEXTROSE 10% 1,000 ML IV SCH ×2 (10:16→19:00)
--- NOTE | 2018-02-13 10:20 | CONS ---
Date/Time of Note Date/Time of Note DATE: 02/13/18 TIME: 10:18 Consult Date/Type/Reason Admit Date/Time Feb 08, 2018 at 14:49 Initial Consult Date 02/12/18 Type of Consultation: Pulmonary ICU Requesting Provider: CHASITY MADSEN Subjective Patient off vasopressors this morning. Appears comfortable no respiratory distress pending hemodialysis this morning. Objective Vital Signs Date Temp Pulse Resp B/P (MAP) Pulse Ox O2 O2 Flow FiO2 Time Delivery Rate 02/13/18 94 24 100 09:15 02/13/18 93/47 (62) Room Air 09:00 02/13/18 97.6 08:00 02/11/18 21 20:10 02/11/18 2.0 06:00 Intake and Output 02/12/18 02/12/18 02/13/18 1515:00 23:00 07:00 IntakeIntake Total 307.60 ml 400.94 ml 330.32 ml BalanceBalance 307.60 ml 400.94 ml 330.32 ml Exam GENERAL: Chronically ill-appearing lady comfortable at rest no acute distress VITAL SIGNS: per chart NECK: Supple. No JVD or lymphadenopathy. CARDIAC EXAM: S1, S2. No added sounds or murmurs. CHEST: Diminished air entry bilaterally with few rales ABDOMEN: Soft, nontender. No guarding or rebound. EXTREMITIES: No cyanosis, clubbing or edema. NEUROLOGIC: Generalized weakness. No focal deficits. Results/Medications Result Diagram: 02/13/18 0432 02/13/18 0423 Results 24 hrs Laboratory Tests Test 02/12/18 11:59 02/12/18 17:22 02/12/18 20:46 02/13/18 04:10 Bedside Glucose 89 81 81 Lactic Acid 3.2 *H Level Test 02/13/18 04:23 02/13/18 04:32 02/13/18 05:00 02/13/18 08:22 Sodium Level 129 L Potassium Level 3.9 Chloride Level 91 L Carbon Dioxide 25 Level Anion Gap 13 Blood Urea 31 H Nitrogen Creatinine 2.74 H Est Glomerular Filtrat Rate mL/min Glucose Level 94 Calcium Level 8.9 Troponin I 0.117 White Blood 7.9 # Count Red Blood Count 3.86 L Hemoglobin 12.4 Hematocrit 37.2 Mean 96.4 Corpuscular Volume Mean 32.1 Corpuscular Hemoglobin Mean 33.3 Corpuscular Hemoglobin Conc ent Red Cell 17.9 H Distribution Width Platelet Count 33 L Mean Platelet 12.8 H Volume Immature 0.600 H Granulocytes % Neutrophils % 69.9 Segmented 72 Neutrophils % (Manual) Band 6 H Neutrophils % (Manual) Lymphocytes % 12.6 L Lymphocytes % 11 L (Manual) Reactive 1 H Lymphocytes % (Manual) Monocytes % 15.4 H Monocytes % 7 (Manual) Eosinophils % 0.9 Eosinophils % 3 (Manual) Basophils % 0.6 Nucleated Red 1 H Blood Cells % Immature 0.050 H Granulocytes # Neutrophils # 5.5 Neutrophils # 5.7 (Manual) Band 0.4 Neutrophils # Lymphocytes 0.8 (Manual) Lymphocytes # 1.0 Reactive 0.0 Lymphocytes # Monocytes # 1.2 H Monocytes # 0.5 (Manual) Eosinophils # 0.1 Basophils # 0.1 Nucleated Red 0.0 Blood Cells # Platelet DECREASED Estimate Giant Platelets 1 H Poikilocytosis 2+ Anisocytosis 3+ Macrocytosis 3+ Blood Gas Blood arterial Specimen Source Arterial Blood 02/13/2018 5:05 Date Drawn :55 AM Arterial Blood 7.463 H pH (Temp corrected ) Arterial Blood 38.5 pCO2 (Temp correct) Arterial Blood 66.4 L pO2 (Temp corrected ) Arterial Blood 27.0 H HCO3 Arterial Blood 3.1 H Base Excess Arterial Blood 92.7 L Oxygen Saturati on Pepe Test ACCEPTAB Arterial Blood Right Radial Gas Puncture Site Arterial 2.2 Blood Carboxyhe moglobin Arterial Blood 0.1 Methemoglobin Blood Gas A-a 37.2 H O2 Differential Oxyhemoglobin 90.6 L Percent Blood Gas 37.0 Temperature Blood Gas 15 Actual Respiration Rat e Blood Gas ROOM AIR Modality FiO2 21.0 Blood Gas Notified Whom Blood Gas 02/13/2018 5:14 Notified Time :41 AM Bedside Glucose 73 Medications Current Medications Digoxin (Digoxin) 0.125 mg DAILY@1300 PO Last administered on 02/11/18at 14:22; Admin Dose 0.125 MG; Start 02/09/18 at 13:00 Levothyroxine Sodium (Synthroid) 25 mcg BEFORE BREAKFAST PO Last administered on 02/13/18at 06:05; Admin Dose 25 MCG; Start 02/09/18 at 07:00 IV Flush (NS 3 ml) 3 ml PER PROTOCOL IV ; Start 02/08/18 at 16:30 Dextrose (D50w Syringe) 50 ml Q10MIN PRN IV hypoglycemia Last administered on 02/09/18at 23:42; Admin Dose 50 ML; Start 02/08/18 at 16:30 Tramadol HCl (Ultram) 50 mg Q6H PRN PO MODERATE PAIN LEVEL 4-6 Last administered on 02/09/18at 07:57; Admin Dose 50 MG; Start 02/09/18 at 01:30 IV Flush (NS 10 ml) 10 ml PRN PRN IV IV PROTOCOL; Start 02/09/18 at 18:00 Phenylephrine HCl 40 mg/Dextrose 250 ml @ 37.5 mls/hr TITRATE IV ; Start 02/09/18 at 22:00 Ondansetron HCl (Zofran Inj) 4 mg Q4H PRN IV NAUSEA AND/OR VOMITING Last administered on 02/11/18at 09:17; Admin Dose 4 MG; Start 02/09/18 at 23:00 Dextrose 1,000 ml @ 50 mls/hr Q20H IV Last administered on 02/13/18at 10:16; Admin Dose 50 MLS/HR; Start 02/10/18 at 11:00 Diagnostic Test (Pha) (Accu-Chek) 1 ea AC MEALS AND BEDTIME XX Last administered on 02/13/18at 07:05; Admin Dose 1 EA; Start 02/10/18 at 21:00 Norepinephrine 32 mg/Dextrose 250 ml @ 0.47 mls/hr TITRATE IV Last administered on 02/12/18at 02:41; Admin Dose 6.33 MLS/HR; Start 02/10/18 at 19:30 Gentamicin Sulfate (Gentamicin Iv Per Pharmacy) GENTAMICIN PER PHARM... NOTE XX ; Start 02/11/18 at 10:00 Gentamicin Sulfate 60 mg/ Sodium Chloride 51.5 ml @ 103 mls/hr AFTER DIALYSIS IVPB ; Start 02/12/18 at 11:00 Ceftriaxone Sodium 50 ml @ 100 mls/hr Q24H IVPB Last administered on 02/12/18at 16:05; Admin Dose 100 MLS/HR; Start 02/11/18 at 16:00 Amiodarone HCl (Cordarone) 200 mg BID PO Last administered on 02/13/18at 08:24; Admin Dose 200 MG; Start 02/11/18 at 13:30 Heparin Sodium (Porcine) (Heparin (1000 Units/ml)) 4,000 unit AFTER DIALYSIS CATHETER Last administered on 02/11/18at 14:00; Admin Dose 4,000 UNIT; Start 02/11/18 at 14:00 Midodrine (Proamatine) 5 mg TID@,,17 PO Last administered on 02/13/18at 08:24; Admin Dose 5 MG; Start 02/12/18 at 09:00 Assessment/Plan Chief Complaint/Hosp Course IMP: 1. Status post shock--likely distributive in nature due to sepsis. 2. Cardiomyopathy 3. Bacteremia--r/o catheter-related infection 4. Afib 5. CKD--on HD 6. Hypoglycemia 7. Anemia RECS: 1. IV abx per ID 2. Consider D/C of permacath if repeat Cx from catheter is positive 3. Titrate levophed gtt targeting MAP 55-60 mm Hg 4. Follow lactate clearance 5. Am labs 6. Hemodialysis as tolerated Critical care time 40 minutes. Discussed with staff. MICHELINE KUHN MD, [facility] Feb 13, 2018 10:20
--- NOTE | 2018-02-13 10:28 | CONS ---
Date/Time of Note Date/Time of Note DATE: 02/13/18 TIME: 10:26 Assessment/Plan Assessment/Plan Hospital Course ID PROGRESS NOTE CURRENT ABX: DAY # => Ceftriaxone + GENT post HD s/p Vanco IV + Merrem 02/13/18 0432 02/13/18 0423 24H INTERVAL SUMMARY * CURRENTLY IN HD, lethargy presisting, Still on vasopressors, WBC normalized today * Indwelling's: Right chest PermCath, PICC line 02/09/18 MICRO * 02/11/18 BCX (-) * 02/08/18 BCx (+)GNR 2/2 bottles * Organism 1 CITROBACTER FREUNDII C FREUNDII M.I.C. RX --------- --- CEFOTAXIME S CIPROFLOXACIN <=0.25 S GENTAMICIN <=1 S LEVOFLOXACIN 0.5 S TOBRAMYCIN <=1 S TRIMETHOPRIM/SULFAMETHOXAZOLE <=20 S * 02/08/18 URINE CX (+) URINE CULTURE Final Organism 1 GRAM NEGATIVE SUSAN COLONY COUNT >100,000 CFU/ml GNRODS: ID RAOULTELLA PLANTICOLA GNR M.I.C. RX --------- --- CEFAZOLIN <=4 S CEFOTAXIME S CIPROFLOXACIN 1 S GENTAMICIN <=1 S LEVOFLOXACIN 1 S NITROFURANTOIN <=16 S TOBRAMYCIN S TRIMETHOPRIM/SULFAMETHOXAZOLE >=320 R PHYSICAL EXAMINATION: GENERAL: Afebrile, VSS, Awakens, confused HEENT: AT, NC, anicteric NECK: Supple, trach CHEST: Equal chest rise bilaterally, without dyspnea on observation HEART: Pacing at 82 BPN ABDOMEN: Soft / NT EXTREMITIES: Warm, dry, cyanotic with trace edema and multiple ecchymosis and bruises SKIN: No rash, no diaphoresis ID ASSESSMENT 72 yo F w/PMHx HTN, CVA, CHF, indwelling Bi-V Pacer, admit with: 1. Severe sepsis with shock, possibly also cardiogenic 2. Gram-negative susan bacteremia, cannot rule out line sepsis * 02/08/18 BCx (+)GNR 2/2 bottles * Organism 1 CITROBACTER FREUNDII 3. Gram-negative rods UTI * 02/08/18 URINE CX (+) URINE CULTURE Final Organism 1 GRAM NEGATIVE SUSAN COLONY COUNT >100,000 CFU/ml GNRODS: ID AMARILIS PLANTKATH 4. Rapid atrial fibrillation-> Now paced rhythm 82 BPM on Amiodarone gtt 5. End-stage renal disease, hemodialysis dependent 6. Pancytopenia 7. Hx of Respiratory failure requiring oral intubation/mechanical Vent NOV 2017 (-)MRSA Nares ABX ALLERGIES: NKDA INVASIVES: Right chest permacath, PICC 02/09/18, BiV Pacer CURRENT ABX: DAY == Ceftriaxone + GENT post HD s/p Merrem+ Vanco IV ID RECOMMENDATIONS/PLAN: == Continue on current NARROWED ABX SPECTRUM Result Diagram: 02/13/18 0432 02/13/18 0423 Results 24hrs Laboratory Tests Test 02/12/18 11:59 02/12/18 17:22 02/12/18 20:46 02/13/18 04:10 Bedside Glucose 89 81 81 Lactic Acid 3.2 *H Level Test 02/13/18 04:23 02/13/18 04:32 02/13/18 05:00 02/13/18 08:22 Sodium Level 129 L Potassium Level 3.9 Chloride Level 91 L Carbon Dioxide 25 Level Anion Gap 13 Blood Urea 31 H Nitrogen Creatinine 2.74 H Est Glomerular Filtrat Rate mL/min Glucose Level 94 Calcium Level 8.9 Troponin I 0.117 White Blood 7.9 # Count Red Blood Count 3.86 L Hemoglobin 12.4 Hematocrit 37.2 Mean 96.4 Corpuscular Volume Mean 32.1 Corpuscular Hemoglobin Mean 33.3 Corpuscular Hemoglobin Conc ent Red Cell 17.9 H Distribution Width Platelet Count 33 L Mean Platelet 12.8 H Volume Immature 0.600 H Granulocytes % Neutrophils % 69.9 Segmented 72 Neutrophils % (Manual) Band 6 H Neutrophils % (Manual) Lymphocytes % 12.6 L Lymphocytes % 11 L (Manual) Reactive 1 H Lymphocytes % (Manual) Monocytes % 15.4 H Monocytes % 7 (Manual) Eosinophils % 0.9 Eosinophils % 3 (Manual) Basophils % 0.6 Nucleated Red 1 H Blood Cells % Immature 0.050 H Granulocytes # Neutrophils # 5.5 Neutrophils # 5.7 (Manual) Band 0.4 Neutrophils # Lymphocytes 0.8 (Manual) Lymphocytes # 1.0 Reactive 0.0 Lymphocytes # Monocytes # 1.2 H Monocytes # 0.5 (Manual) Eosinophils # 0.1 Basophils # 0.1 Nucleated Red 0.0 Blood Cells # Platelet DECREASED Estimate Giant Platelets 1 H Poikilocytosis 2+ Anisocytosis 3+ Macrocytosis 3+ Blood Gas Blood arterial Specimen Source Arterial Blood 02/13/2018 5:05 Date Drawn :55 AM Arterial Blood 7.463 H pH (Temp corrected ) Arterial Blood 38.5 pCO2 (Temp correct) Arterial Blood 66.4 L pO2 (Temp corrected ) Arterial Blood 27.0 H HCO3 Arterial Blood 3.1 H Base Excess Arterial Blood 92.7 L Oxygen Saturati on Pepe Test ACCEPTAB Arterial Blood Right Radial Gas Puncture Site Arterial 2.2 Blood Carboxyhe moglobin Arterial Blood 0.1 Methemoglobin Blood Gas A-a 37.2 H O2 Differential Oxyhemoglobin 90.6 L Percent Blood Gas 37.0 Temperature Blood Gas 15 Actual Respiration Rat e Blood Gas ROOM AIR Modality FiO2 21.0 Blood Gas Notified Whom Blood Gas 02/13/2018 5:14 Notified Time :41 AM Bedside Glucose 73 Consultation Date/Type/Reason Admit Date/Time Feb 08, 2018 at 14:49 Initial Consult Date Requesting Provider: CHASITY MADSEN Exam/Review of Systems Vital Signs Vitals Vital Signs Date Temp Pulse Resp B/P (MAP) Pulse Ox O2 O2 Flow FiO2 Time Delivery Rate 02/13/18 94 24 100 09:15 02/13/18 93/47 (62) Room Air 09:00 02/13/18 97.6 08:00 02/11/18 21 20:10 02/11/18 2.0 06:00 Intake and Output 02/12/18 02/12/18 02/13/18 1515:00 23:00 07:00 IntakeIntake Total 307.60 ml 400.94 ml 330.32 ml BalanceBalance 307.60 ml 400.94 ml 330.32 ml Medications Medications Current Medications Digoxin (Digoxin) 0.125 mg DAILY@1300 PO Last administered on 02/11/18at 14:22; Admin Dose 0.125 MG; Start 02/09/18 at 13:00 Levothyroxine Sodium (Synthroid) 25 mcg BEFORE BREAKFAST PO Last administered on 02/13/18at 06:05; Admin Dose 25 MCG; Start 02/09/18 at 07:00 IV Flush (NS 3 ml) 3 ml PER PROTOCOL IV ; Start 02/08/18 at 16:30 Dextrose (D50w Syringe) 50 ml Q10MIN PRN IV hypoglycemia Last administered on 02/09/18at 23:42; Admin Dose 50 ML; Start 02/08/18 at 16:30 Tramadol HCl (Ultram) 50 mg Q6H PRN PO MODERATE PAIN LEVEL 4-6 Last administered on 02/09/18at 07:57; Admin Dose 50 MG; Start 02/09/18 at 01:30 IV Flush (NS 10 ml) 10 ml PRN PRN IV IV PROTOCOL; Start 02/09/18 at 18:00 Phenylephrine HCl 40 mg/Dextrose 250 ml @ 37.5 mls/hr TITRATE IV ; Start 02/09/18 at 22:00 Ondansetron HCl (Zofran Inj) 4 mg Q4H PRN IV NAUSEA AND/OR VOMITING Last administered on 02/11/18at 09:17; Admin Dose 4 MG; Start 02/09/18 at 23:00 Dextrose 1,000 ml @ 50 mls/hr Q20H IV Last administered on 02/13/18at 10:16; Admin Dose 50 MLS/HR; Start 02/10/18 at 11:00 Diagnostic Test (Pha) (Accu-Chek) 1 ea AC MEALS AND BEDTIME XX Last administered on 02/13/18at 07:05; Admin Dose 1 EA; Start 02/10/18 at 21:00 Norepinephrine 32 mg/Dextrose 250 ml @ 0.47 mls/hr TITRATE IV Last administered on 02/12/18at 02:41; Admin Dose 6.33 MLS/HR; Start 02/10/18 at 19:30 Gentamicin Sulfate (Gentamicin Iv Per Pharmacy) GENTAMICIN PER PHARM... NOTE XX ; Start 02/11/18 at 10:00 Gentamicin Sulfate 60 mg/ Sodium Chloride 51.5 ml @ 103 mls/hr AFTER DIALYSIS IVPB ; Start 02/12/18 at 11:00 Ceftriaxone Sodium 50 ml @ 100 mls/hr Q24H IVPB Last administered on 02/12/18at 16:05; Admin Dose 100 MLS/HR; Start 02/11/18 at 16:00 Amiodarone HCl (Cordarone) 200 mg BID PO Last administered on 02/13/18at 08:24; Admin Dose 200 MG; Start 02/11/18 at 13:30 Heparin Sodium (Porcine) (Heparin (1000 Units/ml)) 4,000 unit AFTER DIALYSIS CATHETER Last administered on 02/11/18at 14:00; Admin Dose 4,000 UNIT; Start 02/11/18 at 14:00 Midodrine (Proamatine) 5 mg TID@09,13,17 PO Last administered on 02/13/18at 08:24; Admin Dose 5 MG; Start 02/12/18 at 09:00 TORI SCHWARTZ NP Feb 13, 2018 10:28
--- NOTE | 2018-02-13 12:13 | NUR ---
WOUND CONSULTATION NOTES: 72-year-old female with past medical history of hypertension, DM type 2, Afib, CHF, and ESRD on HD admitted for urosepsis and respiratory failure. Patient is anuric, state she is ambulatory with assistance of FWW at home, currently alert and oriented on room air without vasopressor therapy receiving dialysis treatment at the bedside. Requires some degree of assistance to help with turning and repositioning. ASSESSMENT: 1. Bilateral heels. Very sluggishly blanching red heels vs Stage 1 Pressure Injury. Condition is present of admission. Cool Bilateral lower extremities with hyperpigmentation and evidence of PVD, weak, nonpalpable DPs/PTs 2. Bilateral forearm partial thickness skin tears as well as punctuate skin tear approx 0.1x0.1x.0.05cm on right anterior lower leg RECOMMENDATIONS: -Apply Venelex ointment to bilateral heels twice daily. Cover with Allevyn heel and inspect at every shift -Patient needs to offload her heels on pillows while in bed at all times -Continue application of foam border dressing to skin tear sites as tolerated. Peel and inspect gently as to not remove the non-adherent skin flap. If no progression of wound, may use Xeroform gauze, cover with 4x4 dry dressing and secure with Kerlix roll and tape. Change daily. -Turn and reposition a minimum of every 2 hours and PRN -Keep HOB <30 degrees at all times unless medically contraindicated Please contact wound care department for any additional encounters or failure of treatment for wounds Patient was seen and plan of care discussed with primary RN. RN to obtain recommendation orders from MD. Thank you Nilda Faustin, RN, MSN, CCRN, [facility] [place]
[2018-02-13] MEDS: DIGOXIN 0.125 MG TAB PO SCH (13:03)
[2018-02-13] MEDS: LORAZEPAM 1 MG TAB PO PRN (13:03)
--- NOTE | 2018-02-13 13:09 | CONS ---
Date/Time of Note Date/Time of Note DATE: 02/13/18 TIME: 13:06 Assessment/Plan Assessment/Plan Hospital Course IMPRESSION: 1. Hypotension/shock, likely combination of septic and cardiogenic.-currently off 2. Cardiomyopathy with severely depressed left ventricular ejection fraction by outside hospital echo 11/2017 revealing ejection fraction of 20%. Now aagin by echo here at [facility] 20% 3. A biventricular ICD with ongoing pacing.- Normal function by interrogation 02/09 4. Atrial fibrillation-also seen on interrogation 02/09 5. End-stage renal disease on hemodialysis. 6. Hyperkalemia. 7. Pancytopenia. 8. Hyponatremia. 9. Coagulopathy. 10. Hypothyroidism. 11.Positive troponin-minimal in the setting of esrd 12. Bacteremia-GNR 14.UTI Recc: -Tele -continue digoxin -Continue PO amio -HD for volume removal as tolerated -Continue abx's and f/u cx data -trend cardiac enzymes -would consider d/c/wean of midodrine as pure afterload with severe systolic dysfunction Result Diagram: 02/13/18 0432 02/13/18 0423 Results 24hrs Laboratory Tests Test 02/12/18 17:22 02/12/18 20:46 02/13/18 04:10 02/13/18 04:23 Bedside Glucose 81 81 Lactic Acid 3.2 *H Level Sodium Level 129 L Potassium Level 3.9 Chloride Level 91 L Carbon Dioxide 25 Level Anion Gap 13 Blood Urea 31 H Nitrogen Creatinine 2.74 H Est Glomerular Filtrat Rate mL/min Glucose Level 94 Calcium Level 8.9 Troponin I 0.117 Test 02/13/18 04:32 02/13/18 05:00 02/13/18 08:22 02/13/18 11:27 White Blood 7.9 # Count Red Blood Count 3.86 L Hemoglobin 12.4 Hematocrit 37.2 Mean 96.4 Corpuscular Volume Mean 32.1 Corpuscular Hemoglobin Mean 33.3 Corpuscular Hemoglobin Conc ent Red Cell 17.9 H Distribution Width Platelet Count 33 L Mean Platelet 12.8 H Volume Immature 0.600 H Granulocytes % Neutrophils % 69.9 Segmented 72 Neutrophils % (Manual) Band 6 H Neutrophils % (Manual) Lymphocytes % 12.6 L Lymphocytes % 11 L (Manual) Reactive 1 H Lymphocytes % (Manual) Monocytes % 15.4 H Monocytes % 7 (Manual) Eosinophils % 0.9 Eosinophils % 3 (Manual) Basophils % 0.6 Nucleated Red 1 H Blood Cells % Immature 0.050 H Granulocytes # Neutrophils # 5.5 Neutrophils # 5.7 (Manual) Band 0.4 Neutrophils # Lymphocytes 0.8 (Manual) Lymphocytes # 1.0 Reactive 0.0 Lymphocytes # Monocytes # 1.2 H Monocytes # 0.5 (Manual) Eosinophils # 0.1 Basophils # 0.1 Nucleated Red 0.0 Blood Cells # Platelet DECREASED Estimate Giant Platelets 1 H Poikilocytosis 2+ Anisocytosis 3+ Macrocytosis 3+ Blood Gas Blood arterial Specimen Source Arterial Blood 02/13/2018 5:05 Date Drawn :55 AM Arterial Blood 7.463 H pH (Temp corrected ) Arterial Blood 38.5 pCO2 (Temp correct) Arterial Blood 66.4 L pO2 (Temp corrected ) Arterial Blood 27.0 H HCO3 Arterial Blood 3.1 H Base Excess Arterial Blood 92.7 L Oxygen Saturati on Pepe Test ACCEPTAB Arterial Blood Right Radial Gas Puncture Site Arterial 2.2 Blood Carboxyhe moglobin Arterial Blood 0.1 Methemoglobin Blood Gas A-a 37.2 H O2 Differential Oxyhemoglobin 90.6 L Percent Blood Gas 37.0 Temperature Blood Gas 15 Actual Respiration Rat e Blood Gas ROOM AIR Modality FiO2 21.0 Blood Gas Notified Whom Blood Gas 02/13/2018 5:14 Notified Time :41 AM Bedside Glucose 73 78 Consultation Date/Type/Reason Admit Date/Time Feb 08, 2018 at 14:49 Initial Consult Date 02/09/18 Type of Consult cardiology Reason for Consultation CHF Requesting Provider: CHASITY MADSEN Exam/Review of Systems Vital Signs Vitals Vital Signs Date Temp Pulse Resp B/P (MAP) Pulse Ox O2 O2 Flow FiO2 Time Delivery Rate 02/13/18 94 24 100 09:15 02/13/18 93/47 (62) Room Air 09:00 02/13/18 97.6 08:00 02/11/18 21 20:10 02/11/18 2.0 06:00 Intake and Output 02/12/18 02/12/18 02/13/18 1515:00 23:00 07:00 IntakeIntake Total 307.60 ml 400.94 ml 330.32 ml BalanceBalance 307.60 ml 400.94 ml 330.32 ml Exam Review of Systems: CONSTITUTIONAL: No fevers, chills. PULMONARY: No sob CARDIOVASCULAR: No chest pain/palpitations GASTROINTESTINAL: No nausea/vomiting. GENITOURINARY: No hematuria/dysuria. MUSCULOSKELETAL: No myagias/arthalgias. PSYCHIATRIC: The patient denies depression. NEUROLOGIC: generalized weakness Constitutional: alert Psych: no complaints Head: normocephalic ENMT: mucosa pink and moist Neck: supple, jvd (9 cm water) Respiratory: diminished breath sounds (at bases/B) Cardiovascular: regular rate and rhythm Gastrointestinal: soft, non-tender Musculoskeletal: muscle weakness (generalized) Extremities: edema (none) Neurological: other (No focal deficits) Medications Medications Current Medications Digoxin (Digoxin) 0.125 mg DAILY@1300 PO Last administered on 02/13/18at 13:03; Admin Dose 0.125 MG; Start 02/09/18 at 13:00 Levothyroxine Sodium (Synthroid) 25 mcg BEFORE BREAKFAST PO Last administered on 02/13/18at 06:05; Admin Dose 25 MCG; Start 02/09/18 at 07:00 IV Flush (NS 3 ml) 3 ml PER PROTOCOL IV ; Start 02/08/18 at 16:30 Dextrose (D50w Syringe) 50 ml Q10MIN PRN IV hypoglycemia Last administered on 02/09/18at 23:42; Admin Dose 50 ML; Start 02/08/18 at 16:30 Tramadol HCl (Ultram) 50 mg Q6H PRN PO MODERATE PAIN LEVEL 4-6 Last administered on 02/09/18at 07:57; Admin Dose 50 MG; Start 02/09/18 at 01:30 IV Flush (NS 10 ml) 10 ml PRN PRN IV IV PROTOCOL; Start 02/09/18 at 18:00 Phenylephrine HCl 40 mg/Dextrose 250 ml @ 37.5 mls/hr TITRATE IV ; Start 02/09/18 at 22:00 Ondansetron HCl (Zofran Inj) 4 mg Q4H PRN IV NAUSEA AND/OR VOMITING Last ad ministered on 02/11/18at 09:17; Admin Dose 4 MG; Start 02/09/18 at 23:00 Dextrose 1,000 ml @ 50 mls/hr Q20H IV Last administered on 02/13/18at 10:16; Admin Dose 50 MLS/HR; Start 02/10/18 at 11:00 Diagnostic Test (Pha) (Accu-Chek) 1 ea AC MEALS AND BEDTIME XX Last administered on 02/13/18at 11:00; Admin Dose 1 EA; Start 02/10/18 at 21:00 Norepinephrine 32 mg/Dextrose 250 ml @ 0.47 mls/hr TITRATE IV Last administered on 02/12/18 02:41; Admin Dose 6.33 MLS/HR; Start 02/10/18 at 19:30 Gentamicin Sulfate (Gentamicin Iv Per Pharmacy) GENTAMICIN PER PHARM... NOTE XX ; Start 02/11/18 at 10:00 Gentamicin Sulfate 60 mg/ Sodium Chloride 51.5 ml @ 103 mls/hr AFTER DIALYSIS IVPB ; Start 02/12/18 at 11:00 Ceftriaxone Sodium 50 ml @ 100 mls/hr Q24H IVPB Last administered on 02/12/18 16:05; Admin Dose 100 MLS/HR; Start 02/11/18 at 16:00 Amiodarone HCl (Cordarone) 200 mg BID PO Last administered on 02/13/18 08:24; Admin Dose 200 MG; Start 02/11/18 at 13:30 Heparin Sodium (Porcine) (Heparin (1000 Units/ml)) 4,000 unit AFTER DIALYSIS CATHETER Last administered on 02/11/18 14:00; Admin Dose 4,000 UNIT; Start 02/11/18 at 14:00 Midodrine (Proamatine) 5 mg TID@09,13,17 PO Last administered on 02/13/18 13:03; Admin Dose 5 MG; Start 02/12/18 at 09:00 Lorazepam (Ativan) 1 mg DAILY PRN PO ANXIETY Last administered on 02/13/18 13:03; Admin Dose 1 MG; Start 02/13/18 at 13:00 TI ESPINO Feb 13, 2018 13:09
[2018-02-13] MEDS: HEPARIN 1000 UNITS/ML 10 ML INJ CATHETER SCH (14:26)
[2018-02-13] MEDS: CEFTRIAXONE 1 GM/50 ML (PMX) 50 ML IVPB SCH (16:26)
[2018-02-13] MEDS: BALSAM PERU/CASTOR OIL 60 GM TUBE TOP SCH (16:26)
--- NOTE | 2018-02-13 17:47 | PN ---
Date/Time of Note Date/Time of Note DATE: 02/13/18 TIME: 17:39 Assessment/Plan VTE Prophylaxis Risk score (from Ns)>0 risk: 9 Pharmacological prophylaxis: heparin Lines/Catheters Urinary Cath still in place: No Assessment/Plan Assessment/Plan 1. Acute metabolic encephalopathy secondary to septic shock secondary to UTI and bacteremia Continue Rocephin and gentamicin Continue midodrine and pressor support as needed ID following, question line sepsis 2. End-stage renal disease Continue HD 3. Hypoglycemia A1c within normal limits and sugars have been stable, DC sliding scale Continue D10 4. A. fib with history of pacemaker placement No acute issues Continue amiodarone Holding anticoagulation Cardiology following Prophylaxis: Heparin Result Diagram: 02/13/18 0432 02/13/18 0423 Results 24hrs Laboratory Tests Test 02/12/18 20:46 02/13/18 04:10 02/13/18 04:23 02/13/18 04:32 Bedside Glucose 81 Lactic Acid 3.2 *H Level Sodium Level 129 L Potassium Level 3.9 Chloride Level 91 L Carbon Dioxide 25 Level Anion Gap 13 Blood Urea 31 H Nitrogen Creatinine 2.74 H Est Glomerular Filtrat Rate mL/min Glucose Level 94 Calcium Level 8.9 Troponin I 0.117 White Blood 7.9 # Count Red Blood Count 3.86 L Hemoglobin 12.4 Hematocrit 37.2 Mean 96.4 Corpuscular Volume Mean 32.1 Corpuscular Hemoglobin Mean 33.3 Corpuscular Hemoglobin Conc ent Red Cell 17.9 H Distribution Width Platelet Count 33 L Mean Platelet 12.8 H Volume Immature 0.600 H Granulocytes % Neutrophils % 69.9 Segmented 72 Neutrophils % (Manual) Band 6 H Neutrophils % (Manual) Lymphocytes % 12.6 L Lymphocytes % 11 L (Manual) Reactive 1 H Lymphocytes % (Manual) Monocytes % 15.4 H Monocytes % 7 (Manual) Eosinophils % 0.9 Eosinophils % 3 (Manual) Basophils % 0.6 Nucleated Red 1 H Blood Cells % Immature 0.050 H Granulocytes # Neutrophils # 5.5 Neutrophils # 5.7 (Manual) Band 0.4 Neutrophils # Lymphocytes 0.8 (Manual) Lymphocytes # 1.0 Reactive 0.0 Lymphocytes # Monocytes # 1.2 H Monocytes # 0.5 (Manual) Eosinophils # 0.1 Basophils # 0.1 Nucleated Red 0.0 Blood Cells # Platelet DECREASED Estimate Giant Platelets 1 H Poikilocytosis 2+ Anisocytosis 3+ Macrocytosis 3+ Test 02/13/18 05:00 02/13/18 08:22 02/13/18 11:27 02/13/18 16:30 Blood Gas Blood arterial Specimen Source Arterial Blood 02/13/2018 5:05 Date Drawn :55 AM Arterial Blood 7.463 H pH (Temp corrected ) Arterial Blood 38.5 pCO2 (Temp correct) Arterial Blood 66.4 L pO2 (Temp corrected ) Arterial Blood 27.0 H HCO3 Arterial Blood 3.1 H Base Excess Arterial Blood 92.7 L Oxygen Saturati on Pepe Test ACCEPTAB Arterial Blood Right Radial Gas Puncture Site Arterial 2.2 Blood Carboxyhe moglobin Arterial Blood 0.1 Methemoglobin Blood Gas A-a 37.2 H O2 Differential Oxyhemoglobin 90.6 L Percent Blood Gas 37.0 Temperature Blood Gas 15 Actual Respiration Rat e Blood Gas ROOM AIR Modality FiO2 21.0 Blood Gas Notified Whom Blood Gas 02/13/2018 5:14 Notified Time :41 AM Bedside Glucose 73 78 85 Subjective 24 Hr Interval Summary Constitutional: disoriented Exam/Review of Systems Vital Signs Vitals Vital Signs Date Temp Pulse Resp B/P (MAP) Pulse Ox O2 O2 Flow FiO2 Time Delivery Rate 02/13/18 94 19 90/59 (69) 95 Room Air 17:00 02/13/18 97.7 16:00 02/11/18 21 20:10 02/11/18 2.0 06:00 Intake and Output 02/12/18 02/12/18 02/13/18 1414:59 22:59 06:59 IntakeIntake Total 309.24 ml 402.35 ml 333.60 ml BalanceBalance 309.24 ml 402.35 ml 333.60 ml Exam Psych: confusion Respiratory: clear to auscultation Cardiovascular: regular rate and rhythm Gastrointestinal: soft; No distended Musculoskeletal: nl extremities to inspection Medications Medications Current Medications Digoxin (Digoxin) 0.125 mg DAILY@1300 PO Last administered on 02/13/18at 13:03; Admin Dose 0.125 MG; Start 02/09/18 at 13:00 Levothyroxine Sodium (Synthroid) 25 mcg BEFORE BREAKFAST PO Last administered on 02/13/18at 06:05; Admin Dose 25 MCG; Start 02/09/18 at 07:00 IV Flush (NS 3 ml) 3 ml PER PROTOCOL IV ; Start 02/08/18 at 16:30 Dextrose (D50w Syringe) 50 ml Q10MIN PRN IV hypoglycemia Last administered on 02/09/18at 23:42; Admin Dose 50 ML; Start 02/08/18 at 16:30 Tramadol HCl (Ultram) 50 mg Q6H PRN PO MODERATE PAIN LEVEL 4-6 Last administered on 02/09/18at 07:57; Admin Dose 50 MG; Start 02/09/18 at 01:30 IV Flush (NS 10 ml) 10 ml PRN PRN IV IV PROTOCOL; Start 02/09/18 at 18:00 Phenylephrine HCl 40 mg/Dextrose 250 ml @ 37.5 mls/hr TITRATE IV ; Start 02/09/18 at 22:00 Ondansetron HCl (Zofran Inj) 4 mg Q4H PRN IV NAUSEA AND/OR VOMITING Last administered on 02/11/18at 09:17; Admin Dose 4 MG; Start 02/09/18 at 23:00 Dextrose 1,000 ml @ 50 mls/hr Q20H IV Last administered on 02/13/18at 10:16; Admin Dose 50 MLS/HR; Start 02/10/18 at 11:00 Norepinephrine 32 mg/Dextrose 250 ml @ 0.47 mls/hr TITRATE IV Last administered on 02/12/18at 02:41; Admin Dose 6.33 MLS/HR; Start 02/10/18 at 19:30 Gentamicin Sulfate (Gentamicin Iv Per Pharmacy) GENTAMICIN PER PHARM... NOTE XX ; Start 02/11/18 at 10:00 Gentamicin Sulfate 60 mg/ Sodium Chloride 51.5 ml @ 103 mls/hr AFTER DIALYSIS IVPB ; Start 02/12/18 at 11:00 Ceftriaxone Sodium 50 ml @ 100 mls/hr Q24H IVPB Last administered on 02/13/18at 16:26; Admin Dose 100 MLS/HR; Start 02/11/18 at 16:00 Amiodarone HCl (Cordarone) 200 mg BID PO Last administered on 02/13/18at 08:24; Admin Dose 200 MG; Start 02/11/18 at 13:30 Heparin Sodium (Porcine) (Heparin (1000 Units/ml)) 4,000 unit AFTER DIALYSIS CATHETER Last administered on 02/13/18at 14:26; Admin Dose 4,000 UNIT; Start 02/11/18 at 14:00 Midodrine (Proamatine) 5 mg TID@,13,17 PO Last administered on 02/13/18at 16:26; Admin Dose 5 MG; Start 02/12/18 at 09:00 Lorazepam (Ativan) 1 mg DAILY PRN PO ANXIETY Last administered on 02/13/18at 13:03; Admin Dose 1 MG; Start 02/13/18 at 13:00 NEGRITA DE LA CRUZ Feb 13, 2018 17:47
[2018-02-13] MEDS: GENTAMICIN 60 MG in SOD CHLORIDE 0.9% 50 ML IVPB SCH (18:18)
--- NOTE | 2018-02-13 18:21 | NUR ---
EOSS: PATIENT REMAINED STABLE THIS SHIFT. A+O X 2/3 BUT BECAME MORE ORIENTED WHEN PATIENTS DAUGHTER WAS AROUND. LEVO REMAINED OFF ENTIRE SHIFT. DIALYSIS DONE THIS AM 2100 ML REMOVED. LACTIC ACID RESULTS REPORTED TO DR DE LA CRUZ THIS AM. PATIENT PLT REMAINS LOW, KEPT SCDS OFF THIS SHIFT. BS MAINTAINED WNL NO HYPOGLYCEMIC EPISODES THIS SHIFT. ACUCHECKS DCD PER DR DE LA CRUZ PATIENT CONTINUES TO BE ON RA AND SATURATING ABOVE 92. PATIENT CHECKED ON HOURLY AND PRN BY NURSING STAFF.
[2018-02-13] MEDS ORDERED: HEPARIN 5,000 UNIT/1 ML VIAL SC SCH (21:00)
[2018-02-13] MEDS: ONDANSETRON 4 MG INJ IV PRN (22:10)
--- NOTE | 2018-02-13 22:30 | NUR ---
Patient vomited x1, presented with increased labored breathing, and courser lungs, patient desat in 's, suspicion of aspiration. Pending Chest xray. Will continue to monitor patient. Addendum: 02/14/18 at 0333 by CARLO CLAY RN Patient was placed on 6L of O2 NC.
[2018-02-14] VITALS (94 sets, daily range): BP systolic 40–122; BP diastolic 30–99; PULSE 55–97; RESP 12–30
--- NOTE | 2018-02-14 01:50 | NUR ---
Notified Dr. Wood of current condition of patient. Patient remains alert, opens eyes, able to follow commands, Patient placed on Venti mask at 50%, sating at 100%, lactic acid results 5.2, Levo at 10. No new orders received, will check lactic acid again at 0500.
[2018-02-14] MEDS: DEXTROSE 10% 1,000 ML IV SCH (06:16)
[2018-02-14] MEDS: LEVOTHYROXINE 25 MCG TAB PO SCH (07:00)
[2018-02-14] MEDS: AMIODARONE 200 MG TAB PO SCH ×2 (08:34→22:09)
[2018-02-14] MEDS: MIDODRINE 5 MG TAB PO SCH ×3 (08:34→22:08)
[2018-02-14] MEDS: BALSAM PERU/CASTOR OIL 60 GM TUBE TOP SCH (08:38)
--- NOTE | 2018-02-14 09:30 | PN ---
DATE: 02/14/2018 SUBJECTIVE: The patient remains critically ill on pressor support. The patient had hemodialysis yes terday, tolerated well. No other events noted. OBJECTIVE: VITAL SIGNS: Blood pressure is 98/59, respirations 25, pulse 78, temperature 98.6. HEENT: Head is normocephalic. NECK: Supple. HEART: Regular rate. LUNGS: Show diminished breath sounds at the base. ABDOMEN: Soft, nontender to palpation without rebound or guarding. EXTREMITIES: Negative for clubbing, cyanosis. Positive edema. DERMATOLOGIC: No rashes. MUSCULOSKELETAL: No joint effusion. NEUROLOGIC: No change in exam. MEDICATIONS: The patient's medications have been reviewed. LABORATORY DATA: Shows sodium 136, potassium 3.8, chloride 93, BUN 19, creatinine 2.17. Lactic acid is 4.7. White count 8.5, hemoglobin 13.0, platelet count is 33. IMAGING STUDIES: Reviewed. ASSESSMENT AND PLAN: 1. End-stage renal disease. The patient had hemodialysis yesterday, tolerated well. Plan for dialy sis again tomorrow. 2. Volume overload. The patient noted with pulmonary edema, congestive heart failure. Continue ult rafiltration dialysis. The patient is hemodynamically stable. 3. Anemia. Monitor hemoglobin and hematocrit levels. Will give Epogen as needed. 4. Mineral bone disorder, monitor calcium and phosphorus levels. 5. Septic shock, etiology secondary to urinary tract infection bacteremia. Continue current antibio tic regimen. Continue pressor support. Will up-titrate Midodrine as needed. Monitor closely. 6. Acute encephalopathy, etiology is toxic metabolic. Continue current medical management. 7. Acute hypoxemic respiratory failure, etiology secondary to congestive heart failure, possible pne umonia. Continue current antibiotics, continue supplemental oxygen and monitor closely. 8. Atrial fibrillation. Continue medical management. 9. Diabetes with episodes of hypoglycemia. Currently on the dextrose drip. Dictated By: ROYAL VAZQUEZ/MILA Conf#: [id number] DID#: [id number]
--- NOTE | 2018-02-14 09:55 | CONS ---
Date/Time of Note Date/Time of Note DATE: 02/14/18 TIME: 09:54 Consult Date/Type/Reason Admit Date/Time Feb 08, 2018 at 14:49 Initial Consult Date 02/12/18 Type of Consultation: Pulmonary ICU Requesting Provider: CHASITY MADSEN Subjective Remains pressor dependant. Sitting up in bed, family present. Still lethargic. Objective Vital Signs Date Temp Pulse Resp B/P (MAP) Pulse Ox O2 O2 Flow FiO2 Time Delivery Rate 02/14/18 82 08:00 02/14/18 89/77 (81) Nasal 6.0 07:15 Cannula 02/14/18 96 05:30 02/14/18 97.5 04:00 02/11/18 21 20:10 Intake and Output 02/13/18 02/13/18 02/14/18 1515:00 23:00 07:00 IntakeIntake Total 547.5 ml 616.23 ml 426.315 ml OutputOutput Total 2800 ml 0 ml 0 ml BalanceBalance -2252.5 ml 616.23 ml 426.315 ml Exam GENERAL: Chronically ill-appearing lady comfortable at rest no acute distress VITAL SIGNS: per chart NECK: Supple. No JVD or lymphadenopathy. CARDIAC EXAM: S1, S2. No added sounds or murmurs. CHEST: Diminished air entry bilaterally with few rales ABDOMEN: Soft, nontender. No guarding or rebound. EXTREMITIES: No cyanosis, clubbing or edema. NEUROLOGIC: Generalized weakness. No focal deficits. Results/Medications Result Diagram: 02/14/18 0050 02/14/18 0050 Results 24 hrs Laboratory Tests Test 02/13/18 11:27 02/13/18 16:30 02/14/18 00:50 02/14/18 01:21 Bedside Glucose 78 85 White Blood 8.5 Count Red Blood Count 4.04 L Hemoglobin 13.0 Hematocrit 39.9 Mean Corpuscular 98.8 Volume Mean Corpuscular 32.2 Hemoglobin Mean Corpuscular 32.6 Hemoglobin Estrellita nt Red Cell 18.2 H Distribution Width Platelet Count 33 L Mean Platelet Volume Immature 1.100 H Granulocytes % Neutrophils % 79.6 H Lymphocytes % 7.2 L Monocytes % 11.3 H Eosinophils % 0.2 Basophils % 0.6 Nucleated Red 0.2 H Blood Cells % Immature 0.090 H Granulocytes # Neutrophils # 6.7 Lymphocytes # 0.6 L Monocytes # 1.0 H Eosinophils # 0.0 Basophils # 0.1 Nucleated Red 0.0 Blood Cells # Sodium Level 136 Potassium Level 3.8 Chloride Level 93 L Carbon Dioxide 28 Level Anion Gap 15 H Blood Urea 19 # Nitrogen Creatinine 2.17 H Est Glomerular Filtrat Rate mL/min Glucose Level 131 Lactic Acid 5.1 *H Level Calcium Level 8.9 Phosphorus Level 3.4 Magnesium Level 1.9 Blood Gas Blood arterial Specimen Source Arterial Blood 02/14/2018 1:40:00 Date Drawn AM Arterial Blood 7.371 pH (Temp corrected) Arterial Blood 42.1 pCO2 (Temp correct) Arterial Blood 77.7 L pO2 (Temp corrected) Arterial Blood 23.8 HCO3 Arterial Blood -1.4 Base Excess Arterial Blood 94.5 L Oxygen Saturatio n Pepe Test N/A Arterial Blood Left Radial Gas Puncture Site Arterial 1.4 Blood Carboxyhem oglobin Arterial Blood 0.3 Methemoglobin Blood Gas A-a O2 231.4 H Differential Oxyhemoglobin 92.9 L Percent Blood Gas 37.0 Temperature Blood Gas MASK - VENTI Modality FiO2 50.0 Blood Gas M Son SUMNER Notified Whom Blood Gas 02/14/2018 1:46:45 Notified Time AM Test 02/14/18 04:40 Lactic Acid 4.7 *H Level Medications Current Medications Digoxin (Digoxin) 0.125 mg DAILY@1300 PO Last administered on 02/13/18at 13:03; Admin Dose 0.125 MG; Start 02/09/18 at 13:00 Levothyroxine Sodium (Synthroid) 25 mcg BEFORE BREAKFAST PO Last administered on 02/13/18at 06:05; Admin Dose 25 MCG; Start 02/09/18 at 07:00 IV Flush (NS 3 ml) 3 ml PER PROTOCOL IV ; Start 02/08/18 at 16:30 Dextrose (D50w Syringe) 50 ml Q10MIN PRN IV hypoglycemia Last administered on 02/09/18at 23:42; Admin Dose 50 ML; Start 02/08/18 at 16:30 Tramadol HCl (Ultram) 50 mg Q6H PRN PO MODERATE PAIN LEVEL 4-6 Last administered on 02/09/18at 07:57; Admin Dose 50 MG; Start 02/09/18 at 01:30 IV Flush (NS 10 ml) 10 ml PRN PRN IV IV PROTOCOL; Start 02/09/18 at 18:00 Phenylephrine HCl 40 mg/Dextrose 250 ml @ 37.5 mls/hr TITRATE IV ; Start 01/15 08/31 at 22:00 Ondansetron HCl (Zofran Inj) 4 mg Q4H PRN IV NAUSEA AND/OR VOMITING Last administered on 02/13/18at 22:10; Admin Dose 4 MG; Start 02/09/18 at 23:00 Dextrose 1,000 ml @ 50 mls/hr Q20H IV Last administered on 02/14/18 06:16; Admin Dose 50 MLS/HR; Start 02/10/18 at 11:00 Norepinephrine 32 mg/Dextrose 250 ml @ 0.47 mls/hr TITRATE IV Last administered on 02/12/18 02:41; Admin Dose 6.33 MLS/HR; Start 02/10/18 at 19:30 Gentamicin Sulfate (Gentamicin Iv Per Pharmacy) GENTAMICIN PER PHARM... NOTE XX ; Start 02/11/18 at 10:00 Gentamicin Sulfate 60 mg/ Sodium Chloride 51.5 ml @ 103 mls/hr AFTER DIALYSIS IVPB Last administered on 02/13/18at 18:18; Admin Dose 103 MLS/HR; Start 02/12/18 at 11:00 Ceftriaxone Sodium 50 ml @ 100 mls/hr Q24H IVPB Last administered on 02/13/18a t 16:26; Admin Dose 100 MLS/HR; Start 02/11/18 at 16:00 Amiodarone HCl (Cordarone) 200 mg BID PO Last administered on 02/14/18 08:34; Admin Dose 200 MG; Start 02/11/18 at 13:30 Heparin Sodium (Porcine) (Heparin (1000 Units/ml)) 4,000 unit AFTER DIALYSIS CATHETER Last administered on 02/13/18at 14:26; Admin Dose 4,000 UNIT; Start 02/11/18 at 14:00 Midodrine (Proamatine) 5 mg TID@09,13,17 PO Last administered on 02/14/18 08:34; Admin Dose 5 MG; Start 02/12/18 at 09:00 Lorazepam (Ativan) 1 mg DAILY PRN PO ANXIETY Last administered on 02/13/18 13:03; Admin Dose 1 MG; Start 02/13/18 at 13:00 Assessment/Plan Chief Complaint/Hosp Course IMP: 1. Status post shock--likely distributive in nature due to sepsis. 2. Cardiomyopathy 3. Bacteremia--r/o catheter-related infection 4. Afib 5. CKD--on HD 6. Hypoglycemia 7. Anemia RECS: 1. IV abx per ID 2. Aspiration precautions. 3. Titrate levophed gtt targeting MAP 55-60 mm Hg 4. Follow lactate clearance 5. Am labs 6. Hemodialysis as tolerated Critical care time 40 minutes. Discussed with staff. MICHELINE KUHN MD, [facility] Feb 14, 2018 09:55
--- NOTE | 2018-02-14 10:54 | PN ---
Date/Time of Note Date/Time of Note DATE: 02/14/18 TIME: 10:52 Assessment/Plan VTE Prophylaxis Risk score (from Nsg)>0 risk: 6 Pharmacological prophylaxis: NA/contraindicated Pharm contraindication: blood coag disorder Lines/Catheters Urinary Cath still in place: No Assessment/Plan Hospital Course 1. Acute metabolic encephalopathy secondary to septic shock secondary to UTI and bacteremia Continue Rocephin and gentamicin Continue midodrine and pressor support as needed Patient has likely baseline hypotension ID following, question line sepsis 2. End-stage renal disease Continue HD 3. Hypoglycemia A1c within normal limits and sugars have been stable, DC sliding scale DC D10 Monitor 4. A. fib with history of pacemaker placement No acute issues Continue amiodarone Holding anticoagulation Cardiology following Prophylaxis: Not given due to thrombocytopenia Result Diagram: 02/14/18 0050 02/14/18 0050 Results 24hrs Laboratory Tests Test 02/13/18 11:27 02/13/18 16:30 02/14/18 00:50 02/14/18 01:21 Bedside Glucose 78 85 White Blood 8.5 Count Red Blood Count 4.04 L Hemoglobin 13.0 Hematocrit 39.9 Mean Corpuscular 98.8 Volume Mean Corpuscular 32.2 Hemoglobin Mean Corpuscular 32.6 Hemoglobin Estrellita nt Red Cell 18.2 H Distribution Width Platelet Count 33 L Mean Platelet Volume Immature 1.100 H Granulocytes % Neutrophils % 79.6 H Lymphocytes % 7.2 L Monocytes % 11.3 H Eosinophils % 0.2 Basophils % 0.6 Nucleated Red 0.2 H Blood Cells % Immature 0.090 H Granulocytes # Neutrophils # 6.7 Lymphocytes # 0.6 L Monocytes # 1.0 H Eosinophils # 0.0 Basophils # 0.1 Nucleated Red 0.0 Blood Cells # Sodium Level 136 Potassium Level 3.8 Chloride Level 93 L Carbon Dioxide 28 Level Anion Gap 15 H Blood Urea 19 # Nitrogen Creatinine 2.17 H Est Glomerular Filtrat Rate mL/min Glucose Level 131 Lactic Acid 5.1 *H Level Calcium Level 8.9 Phosphorus Level 3.4 Magnesium Level 1.9 Blood Gas Blood arterial Specimen Source Arterial Blood 02/14/2018 1:40:00 Date Drawn AM Arterial Blood 7.371 pH (Temp corrected) Arterial Blood 42.1 pCO2 (Temp correct) Arterial Blood 77.7 L pO2 (Temp corrected) Arterial Blood 23.8 HCO3 Arterial Blood -1.4 Base Excess Arterial Blood 94.5 L Oxygen Saturatio n Pepe Test N/A Arterial Blood Left Radial Gas Puncture Site Arterial 1.4 Blood Carboxyhem oglobin Arterial Blood 0.3 Methemoglobin Blood Gas A-a O2 231.4 H Differential Oxyhemoglobin 92.9 L Percent Blood Gas 37.0 Temperature Blood Gas MASK - VENTI Modality FiO2 50.0 Blood Gas M Wilderelieser SUMNER Notified Whom Blood Gas 02/14/2018 1:46:45 Notified Time AM Test 02/14/18 04:40 Lactic Acid 4.7 *H Level Subjective 24 Hr Interval Summary Constitutional: disoriented Exam/Review of Systems Vital Signs Vitals Vital Signs Date Temp Pulse Resp B/P (MAP) Pulse Ox O2 O2 Flow FiO2 Time Delivery Rate 02/14/18 82 08:00 02/14/18 19 89/77 (81) Nasal 6.0 07:15 Cannula 02/14/18 96 05:30 02/14/18 97.5 04:00 02/11/18 21 20:10 Intake and Output 02/13/18 02/13/18 02/14/18 1515:00 23:00 07:00 IntakeIntake Total 547.5 ml 616.23 ml 426.315 ml OutputOutput Total 2800 ml 0 ml 0 ml BalanceBalance -2252.5 ml 616.23 ml 426.315 ml Exam Constitutional: alert Psych: confusion Respiratory: clear to auscultation Cardiovascular: regular rate and rhythm, rub Gastrointestinal: soft; No distended Musculoskeletal: nl extremities to inspection Medications Medications Current Medications Digoxin (Digoxin) 0.125 mg DAILY@1300 PO Last administered on 02/13/18at 13:03; Admin Dose 0.125 MG; Start 02/09/18 at 13:00 Levothyroxine Sodium (Synthroid) 25 mcg BEFORE BREAKFAST PO Last administered on 02/13/18at 06:05; Admin Dose 25 MCG; Start 02/09/18 at 07:00 IV Flush (NS 3 ml) 3 ml PER PROTOCOL IV ; Start 02/08/18 at 16:30 Dextrose (D50w Syringe) 50 ml Q10MIN PRN IV hypoglycemia Last administered on 02/09/18at 23:42; Admin Dose 50 ML; Start 02/08/18 at 16:30 Tramadol HCl (Ultram) 50 mg Q6H PRN PO MODERATE PAIN LEVEL 4-6 Last administered on 02/09/18 07:57; Admin Dose 50 MG; Start 02/09/18 at 01:30 IV Flush (NS 10 ml) 10 ml PRN PRN IV IV PROTOCOL; Start 02/09/18 at 18:00 Phenylephrine HCl 40 mg/Dextrose 250 ml @ 37.5 mls/hr TITRATE IV ; Start 02/09/18 at 22:00 Ondansetron HCl (Zofran Inj) 4 mg Q4H PRN IV NAUSEA AND/OR VOMITING Last administered on 02/13/18 22:10; Admin Dose 4 MG; Start 02/09/18 at 23:00 Dextrose 1,000 ml @ 50 mls/hr Q20H IV Last administered on 02/14/18 06:16; Admin Dose 50 MLS/HR; Start 02/10/18 at 11:00 Norepinephrine 32 mg/Dextrose 250 ml @ 0.47 mls/hr TITRATE IV Last administered on 02/12/18 02:41; Admin Dose 6.33 MLS/HR; Start 02/10/18 at 1 9:30 Gentamicin Sulfate (Gentamicin Iv Per Pharmacy) GENTAMICIN PER PHARM... NOTE XX ; Start 02/11/18 at 10:00 Gentamicin Sulfate 60 mg/ Sodium Chloride 51.5 ml @ 103 mls/hr AFTER DIALYSIS IVPB Last administered on 02/13/18 18:18; Admin Dose 103 MLS/HR; Start 02/12/18 at 11:00 Ceftriaxone Sodium 50 ml @ 100 mls/hr Q24H IVPB Last administered on 02/13/18 16:26; Admin Dose 100 MLS/HR; Start 02/11/18 at 16:00 Amiodarone HCl (Cordarone) 200 mg BID PO Last administered on 02/14/18 08:34; Admin Dose 200 MG; Start 02/11/18 at 13:30 Heparin Sodium (Porcine) (Heparin (1000 Units/ml)) 4,000 unit AFTER DIALYSIS CATHETER Last administered on 02/13/18 14:26; Admin Dose 4,000 UNIT; Start 02/11/18 at 14:00 Midodrine (Proamatine) 5 mg TID@09,13,17 PO Last administered on 02/14/18 08:34 ; Admin Dose 5 MG; Start 02/12/18 at 09:00 Lorazepam (Ativan) 1 mg DAILY PRN PO ANXIETY Last administered on 02/13/18at 13:03; Admin Dose 1 MG; Start 02/13/18 at 13:00 NEGRITA DE LA CRUZ Feb 14, 2018 10:54
--- NOTE | 2018-02-14 12:42 | CONS ---
Date/Time of Note Date/Time of Note DATE: 02/14/18 TIME: 12:41 Assessment/Plan Assessment/Plan Hospital Course IMPRESSION: 1. Hypotension/shock, likely combination of septic and cardiogenic.-currently off 2. Cardiomyopathy with severely depressed left ventricular ejection fraction by outside hospital echo 11/2017 revealing ejection fraction of 20%. Now aagin by echo here at [facility] 20% 3. A biventricular ICD with ongoing pacing.- Normal function by interrogation 02/09 4. Atrial fibrillation-also seen on interrogation 02/09 5. End-stage renal disease on hemodialysis. 6. Hyperkalemia. 7. Pancytopenia. 8. Hyponatremia. 9. Coagulopathy. 10. Hypothyroidism. 11.Positive troponin-minimal in the setting of esrd 12. Bacteremia-GNR 14.UTI Recc: -ICU -continue digoxin -Continue PO amio -HD for volume removal as tolerated -Continue abx's and f/u cx data -trend cardiac enzymes -would consider d/c/wean of midodrine as pure afterload with severe systolic dysfunction Result Diagram: 02/14/18 0050 02/14/18 0050 Results 24hrs Laboratory Tests Test 02/13/18 16:30 02/14/18 00:50 02/14/18 01:21 02/14/18 04:40 Bedside Glucose 85 White Blood Count 8.5 Red Blood Count 4.04 L Hemoglobin 13.0 Hematocrit 39.9 Mean Corpuscular 98.8 Volume Mean Corpuscular 32.2 Hemoglobin Mean Corpuscular 32.6 Hemoglobin Concen t Red Cell 18.2 H Distribution Width Platelet Count 33 L Mean Platelet Volume Immature 1.100 H Granulocytes % Neutrophils % 79.6 H Lymphocytes % 7.2 L Monocytes % 11.3 H Eosinophils % 0.2 Basophils % 0.6 Nucleated Red 0.2 H Blood Cells % Immature 0.090 H Granulocytes # Neutrophils # 6.7 Lymphocytes # 0.6 L Monocytes # 1.0 H Eosinophils # 0.0 Basophils # 0.1 Nucleated Red 0.0 Blood Cells # Sodium Level 136 Potassium Level 3.8 Chloride Level 93 L Carbon Dioxide 28 Level Anion Gap 15 H Blood Urea 19 # Nitrogen Creatinine 2.17 H Est Glomerular Filtrat Rate mL/min Glucose Level 131 Lactic Acid Level 5.1 *H 4.7 *H Calcium Level 8.9 Phosphorus Level 3.4 Magnesium Level 1.9 Blood Gas Blood arterial Specimen Source Arterial Blood 02/14/2018 1:40:00 Date Drawn AM Arterial Blood pH 7.371 (Temp corrected) Arterial Blood 42.1 pCO2 (Temp correct) Arterial Blood 77.7 L pO2 (Temp corrected) Arterial Blood 23.8 HCO3 Arterial Blood -1.4 Base Excess Arterial Blood 94.5 L Oxygen Saturation Pepe Test N/A Arterial Blood Left Radial Gas Puncture Site Arterial 1.4 Blood Carboxyhemo globin Arterial Blood 0.3 Methemoglobin Blood Gas A-a O2 231.4 H Differential Oxyhemoglobin 92.9 L Percent Blood Gas 37.0 Temperature Blood Gas MASK - VENTI Modality FiO2 50.0 Blood Gas M Son SUMNER Notified Whom Blood Gas 02/14/2018 1:46:45 Notified Time AM Consultation Date/Type/Reason Admit Date/Time Feb 08, 2018 at 14:49 Initial Consult Date 02/09/18 Type of Consult cardiology Reason for Consultation CHF Requesting Provider: CHASITY MADSEN Exam/Review of Systems Vital Signs Vitals Vital Signs Date Temp Pulse Resp B/P (MAP) Pulse Ox O2 O2 Flow FiO2 Time Delivery Rate 02/14/18 82 08:00 02/14/18 19 89/77 (81) Nasal 6.0 07:15 Cannula 02/14/18 96 05:30 02/14/18 97.5 04:00 02/11/18 21 20:10 Intake and Output 02/13/18 02/13/18 02/14/18 1515:00 23:00 07:00 IntakeIntake Total 547.5 ml 616.23 ml 426.315 ml OutputOutput Total 2800 ml 0 ml 0 ml BalanceBalance -2252.5 ml 616.23 ml 426.315 ml Exam Review of Systems: CONSTITUTIONAL: No fevers, chills. PULMONARY: No sob CARDIOVASCULAR: No chest pain/palpitations GASTROINTESTINAL: No nausea/vomiting. GENITOURINARY: No hematuria/dysuria. MUSCULOSKELETAL: No myagias/arthalgias. PSYCHIATRIC: The patient denies depression. NEUROLOGIC: No weakness Constitutional: alert Psych: no complaints Head: normocephalic ENMT: mucosa pink and moist Neck: supple, jvd (9 cm water) Respiratory: diminished breath sounds (at bases/B) Cardiovascular: regular rate and rhythm Gastrointestinal: soft, non-tender Musculoskeletal: muscle weakness (generalized) Extremities: edema (none) Neurological: other (No focal deficits) Medications Medications Current Medications Digoxin (Digoxin) 0.125 mg DAILY@1300 PO Last administered on 02/13/18at 13:03; Admin Dose 0.125 MG; Start 02/09/18 at 13:00 Levothyroxine Sodium (Synthroid) 25 mcg BEFORE BREAKFAST PO Last administered on 02/13/18at 06:05; Admin Dose 25 MCG; Start 02/09/18 at 07:00 IV Flush (NS 3 ml) 3 ml PER PROTOCOL IV ; Start 02/08/18 at 16:30 Dextrose (D50w Syringe) 50 ml Q10MIN PRN IV hypoglycemia Last administered on 02/09/18at 23:42; Admin Dose 50 ML; Start 02/08/18 at 16:30 Tramadol HCl (Ultram) 50 mg Q6H PRN PO MODERATE PAIN LEVEL 4-6 Last administered on 02/09/18at 07:57; Admin Dose 50 MG; Start 02/09/18 at 01:30 IV Flush (NS 10 ml) 10 ml PRN PRN IV IV PROTOCOL; Start 02/09/18 at 18:00 Phenylephrine HCl 40 mg/Dextrose 250 ml @ 37.5 mls/hr TITRATE IV ; Start 02/09/18 at 22:00 Ondansetron HCl (Zofran Inj) 4 mg Q4H PRN IV NAUSEA AND/OR VOMITING Last administered on 02/13/18at 22:10; Admin Dose 4 MG; Start 02/09/18 at 23:00 Dextrose 1,000 ml @ 50 mls/hr Q20H IV Last administered on 02/14/18at 06:16; Admin Dose 50 MLS/HR; Start 02/10/18 at 11:00 Norepinephrine 32 mg/Dextrose 250 ml @ 0.47 mls/hr TITRATE IV Last administered on 02/12/18at 02:41; Admin Dose 6.33 MLS/HR; Start 02/10/18 at 19:30 Gentamicin Sulfate (Gentamicin Iv Per Pharmacy) GENTAMICIN PER PHARM... NOTE XX ; Start 02/11/18 at 10:00 Gentamicin Sulfate 60 mg/ Sodium Chloride 51.5 ml @ 103 mls/hr AFTER DIALYSIS IVPB Last administered on 02/13/18at 18:18; Admin Dose 103 MLS/HR; Start 02/12/18 at 11:00 Ceftriaxone Sodium 50 ml @ 100 mls/hr Q24H IVPB Last administered on 02/13/18 16:26; Admin Dose 100 MLS/HR; Start 02/11/18 at 16:00 Amiodarone HCl (Cordarone) 200 mg BID PO Last administered on 02/14/18 08:34; Admin Dose 200 MG; Start 02/11/18 at 13:30 Heparin Sodium (Porcine) (Heparin (1000 Units/ml)) 4,000 unit AFTER DIALYSIS CATHETER Last administered on 02/13/18 14:26; Admin Dose 4,000 UNIT; Start 02/11/18 at 14:00 Midodrine (Proamatine) 5 mg TID@09,13,17 PO Last administered on 02/14/18 08:34; Admin Dose 5 MG; Start 02/12/18 at 09:00 Lorazepam (Ativan) 1 mg DAILY PRN PO ANXIETY Last administered on 02/13/18 13:03; Admin Dose 1 MG; Start 02/13/18 at 13:00 TI ESPINO Feb 14, 2018 12:42
--- NOTE | 2018-02-14 13:20 | CONS ---
Date/Time of Note Date/Time of Note DATE: 02/14/18 TIME: 13:07 Assessment/Plan Assessment/Plan Hospital Course ID PROGRESS NOTE CURRENT ABX: DAY # => Ceftriaxone + GENT post HD s/p Vanco IV + Merrem 02/14/18 00502/14/18 005 24H INTERVAL SUMMARY * s/p Emesis last night with aspiration -- today with increased lactic acidosis, without respiratory distress * She is more alwake, alert, tells me "mejor" ("better") -- Generalized weakness noted * Indwelling's: Right chest PermCath, PICC line 02/09/18 * 02/14/17 CXR IMPRESSION: * 1. Exacerbation of cardiogenic pulmonary venous hypertension * 2. Combination AICD pacemaker with right internal jugular dialysis catheter and right PICC catheter as described without pneumothorax * 3. Marked cardiomegaly and atherosclerotic vascular disease * 4. Small bilateral pleural effusions MICRO * 02/11/18 BCX (-) * 02/08/18 BCx (+)GNR 2/2 bottles * Organism 1 CITROBACTER FREUNDII C FREUNDII M.I.C. RX --------- --- CEFOTAXIME S CIPROFLOXACIN <=0.25 S GENTAMICIN <=1 S LEVOFLOXACIN 0.5 S TOBRAMYCIN <=1 S TRIMETHOPRIM/SULFAMETHOXAZOLE <=20 S * 02/08/18 URINE CX (+) URINE CULTURE Final Organism 1 GRAM NEGATIVE SUSAN COLONY COUNT >100,000 CFU/ml GNRODS: ID RAOULTELLA PLANTICOLA GNR M.I.C. RX --------- --- CEFAZOLIN <=4 S CEFOTAXIME S CIPROFLOXACIN 1 S GENTAMICIN <=1 S LEVOFLOXACIN 1 S NITROFURANTOIN <=16 S TOBRAMYCIN S TRIMETHOPRIM/SULFAMETHOXAZOLE >=320 R PHYSICAL EXAMINATION: GENERAL: Afebrile, VSS, Awakens, confused HEENT: AT, NC, anicteric NECK: Supple, trach CHEST: Equal chest rise bilaterally, without dyspnea on observation HEART: Pacing at 82 BPN ABDOMEN: Soft / NT EXTREMITIES: Warm, dry, cyanotic with trace edema and multiple ecchymosis and bruises SKIN: No rash, no diaphoresis ID ASSESSMENT 72 yo F w/PMHx HTN, CVA, CHF, indwelling Bi-V Pacer, admit with: 1. Severe sepsis with shock, possibly also cardiogenic 2. Gram-negative susan bacteremia, cannot rule out line sepsis * 02/08/18 BCx (+)GNR 2/2 bottles * Organism 1 CITROBACTER FREUNDII 3. Gram-negative rods UTI * 02/08/18 URINE CX (+) URINE CULTURE Final Organism 1 GRAM NEGATIVE SUSAN COLONY COUNT >100,000 CFU/ml GNRODS: ID RAOULTELLA PLANTICOLA 4. Rapid atrial fibrillation-> Now paced rhythm 82 BPM on Amiodarone gtt 5. End-stage renal disease, hemodialysis dependent 6. Pancytopenia 7. Hx of Respiratory failure requiring oral intubation/mechanical Vent NOV 2017 8. Thrombocytopenia (-)MRSA Nares ABX ALLERGIES: NKDA INVASIVES: Right chest permacath, PICC 02/09/18, BiV Pacer CURRENT ABX: DAY == Ceftriaxone + GENT post HD s/p Merrem+ Vanco IV ID RECOMMENDATIONS/PLAN: == s/p Emesis last night with aspiration -- today with increased lactic acido sis, without respiratory distress == Let's give single dose of Vanco IV x1 today + Levaquin 250mg IV -- to cover concern of ASP EVENT last night * Monitor for worsening PNA tomorrow. . Result Diagram: 02/14/180 02/14/18 0050 Results 24hrs Laboratory Tests Test 02/13/18 16:30 02/14/18 00:50 02/14/18 01:21 02/14/18 04:40 Bedside Glucose 85 White Blood Count 8.5 Red Blood Count 4.04 L Hemoglobin 13.0 Hematocrit 39.9 Mean Corpuscular 98.8 Volume Mean Corpuscular 32.2 Hemoglobin Mean Corpuscular 32.6 Hemoglobin Concen t Red Cell 18.2 H Distribution Width Platelet Count 33 L Mean Platelet Volume Immature 1.100 H Granulocytes % Neutrophils % 79.6 H Lymphocytes % 7.2 L Monocytes % 11.3 H Eosinophils % 0.2 Basophils % 0.6 Nucleated Red 0.2 H Blood Cells % Immature 0.090 H Granulocytes # Neutrophils # 6.7 Lymphocytes # 0.6 L Monocytes # 1.0 H Eosinophils # 0.0 Basophils # 0.1 Nucleated Red 0.0 Blood Cells # Sodium Level 136 Potassium Level 3.8 Chloride Level 93 L Carbon Dioxide 28 Level Anion Gap 15 H Blood Urea 19 # Nitrogen Creatinine 2.17 H Est Glomerular Filtrat Rate mL/min Glucose Level 131 Lactic Acid Level 5.1 *H 4.7 *H Calcium Level 8.9 Phosphorus Level 3.4 Magnesium Level 1.9 Blood Gas Blood arterial Specimen Source Arterial Blood 02/14/2018 1:40:00 Date Drawn AM Arterial Blood pH 7.371 (Temp corrected) Arterial Blood 42.1 pCO2 (Temp correct) Arterial Blood 77.7 L pO2 (Temp corrected) Arterial Blood 23.8 HCO3 Arterial Blood -1.4 Base Excess Arterial Blood 94.5 L Oxygen Saturation Pepe Test N/A Arterial Blood Left Radial Gas Puncture Site Arterial 1.4 Blood Carboxyhemo globin Arterial Blood 0.3 Methemoglobin Blood Gas A-a O2 231.4 H Differential Oxyhemoglobin 92.9 L Percent Blood Gas 37.0 Temperature Blood Gas MASK - VENTI Modality FiO2 50.0 Blood Gas M Son SUMNER Notified Whom Blood Gas 02/14/2018 1:46:45 Notified Time AM Consultation Date/Type/Reason Admit Date/Time Feb 08, 2018 at 14:49 Initial Consult Date Requesting Provider: CHASITY MADSEN Exam/Review of Systems Vital Signs Vitals Vital Signs Date Temp Pulse Resp B/P (MAP) Pulse Ox O2 O2 Flow FiO2 Time Delivery Rate 02/14/18 82 08:00 02/14/18 19 89/77 (81) Nasal 6.0 07:15 Cannula 02/14/18 96 05:30 02/14/18 97.5 04:00 02/11/18 21 20:10 Intake and Output 02/13/18 02/13/18 02/14/18 1515:00 23:00 07:00 IntakeIntake Total 547.5 ml 616.23 ml 426.315 ml OutputOutput Total 2800 ml 0 ml 0 ml BalanceBalance -2252.5 ml 616.23 ml 426.315 ml Medications Medications Current Medications Digoxin (Digoxin) 0.125 mg DAILY@1300 PO Last administered on 02/13/18at 13:03; Admin Dose 0.125 MG; Start 02/09/18 at 13:00 Levothyroxine Sodium (Synthroid) 25 mcg BEFORE BREAKFAST PO Last administered on 02/13/18at 06:05; Admin Dose 25 MCG; Start 02/09/18 at 07:00 IV Flush (NS 3 ml) 3 ml PER PROTOCOL IV ; Start 02/08/18 at 16:30 Dextrose (D50w Syringe) 50 ml Q10MIN PRN IV hypoglycemia Last administered on 02/09/18at 23:42; Admin Dose 50 ML; Start 02/08/18 at 16:30 Tramadol HCl (Ultram) 50 mg Q6H PRN PO MODERATE PAIN LEVEL 4-6 Last administered on 02/09/18at 07:57; Admin Dose 50 MG; Start 02/09/18 at 01:30 IV Flush (NS 10 ml) 10 ml PRN PRN IV IV PROTOCOL; Start 02/09/18 at 18:00 Phenylephrine HCl 40 mg/Dextrose 250 ml @ 37.5 mls/hr TITRATE IV ; Start 02/09/18 at 22:00 Ondansetron HCl (Zofran Inj) 4 mg Q4H PRN IV NAUSEA AND/OR VOMITING Last administered on 02/13/18at 22:10; Admin Dose 4 MG; Start 02/09/18 at 23:00 Dextrose 1,000 ml @ 50 mls/hr Q20H IV Last administered on 02/14/18at 06:16; Admin Dose 50 MLS/HR; Start 02/10/18 at 11:00 Norepinephrine 32 mg/Dextrose 250 ml @ 0.47 mls/hr TITRATE IV Last administered on 02/12/18at 02:41; Admin Dose 6.33 MLS/HR; Start 02/10/18 at 19:30 Gentamicin Sulfate (Gentamicin Iv Per Pharmacy) GENTAMICIN PER PHARM... NOTE XX ; Start 02/11/18 at 10:00 Gentamicin Sulfate 60 mg/ Sodium Chloride 51.5 ml @ 103 mls/hr AFTER DIALYSIS IVPB Last administered on 02/13/18at 18:18; Admin Dose 103 MLS/HR; Start 02/12/18 at 11:00 Ceftriaxone Sodium 50 ml @ 100 mls/hr Q24H IVPB Last administered on 02/13/18at 16:26; Admin Dose 100 MLS/HR; Start 02/11/18 at 16:00 Amiodarone HCl (Cordarone) 200 mg BID PO Last administered on 02/14/18at 08:34; Admin Dose 200 MG; Start 02/11/18 at 13:30 Heparin Sodium (Porcine) (Heparin (1000 Units/ml)) 4,000 unit AFTER DIALYSIS CATHETER Last administered on 02/13/18at 14:26; Admin Dose 4,000 UNIT; Start 02/11/18 at 14:00 Midodrine (Proamatine) 5 mg TID@09,13,17 PO Last administered on 02/14/18at 08:34; Admin Dose 5 MG; Start 02/12/18 at 09:00 Lorazepam (Ativan) 1 mg DAILY PRN PO ANXIETY Last administered on 02/13/18at 13:03; Admin Dose 1 MG; Start 02/13/18 at 13:00 TORI SCHWARTZ NP Feb 14, 2018 13:18
[2018-02-14] MEDS ORDERED: LEVOFLOXACIN 250MG/D5W (PMX) 50 ML IVPB ONE (13:30)
[2018-02-14] MEDS ORDERED: VANCOMYCIN 1 GM (PMX) 250 ML IVPB ONE (13:30)
[2018-02-14] MEDS: DIGOXIN 0.125 MG TAB PO SCH (14:49)
[2018-02-14] MEDS: CEFTRIAXONE 1 GM/50 ML (PMX) 50 ML IVPB SCH (17:44)
--- NOTE | 2018-02-14 18:20 | NUR ---
END OF SHIFT SUMMARY PT IS IN STABLE CONDITION. PT IS ON LEVO GTT AT 4MCG. PT WAS TITRATED DOWN FROM 10MCG. [facility] WAS CALLED. CONFIRMATION FOR TOMORROW 02/15/18 IN THE AFTERNOON CONFIRMATION # [id number]. PT IS ON 6.0LO2 NC HUMIDIFIED, AND SATURATING AROUND 90-100%. PT HAS NO RESPIRATORY DISTRESS. PT HAD SEVERAL SMALL BM THAT WERE SOFT AND BROWN. ALL OF PT NEEDS CARED FOR. NO SIGNIFICANT EVENTS OCCURRED OVERNIGHT. ENDORSING CARE TO DAY SHIFT.
[2018-02-14] MEDS: ONDANSETRON 4 MG INJ IV PRN (20:30)
[2018-02-15] VITALS (107 sets, daily range): BP systolic 49–152; BP diastolic 12–140; PULSE 59–98; RESP 11–45
[2018-02-15] MEDS: LEVOTHYROXINE 25 MCG TAB PO SCH ×2 (06:22→07:00)
[2018-02-15] MEDS: MIDODRINE 5 MG TAB PO SCH ×3 (06:22→14:56)
[2018-02-15] MEDS: ONDANSETRON 4 MG INJ IV PRN (06:33)
--- NOTE | 2018-02-15 07:07 | NUR ---
EOSS: PATIENT REMAINED STABLE THROUGHOUT SHIFT; VITAL SIGNS CHARTED. NO ACUTE CARDIAC EVENTS NOTED. BP MANAGED ON LEVOPHED GTT. PT TOLERATING 4L NC WITH ADEQUATE OXYGENATION SATURATION >92%. PT EATING A SOFT CARB CONTROLLED DIET, WITH POOR APPETITE. PT IS ANURIC AND HD IS SCHEDULED FOR TODAY. PT HAD BM LAST NIGHT. SKIN AND WOUND CARE PROVIDED PER PROTOCOL. PT TURNED AND REPOSITIONED Q2H. DAUGHTER CALLED IN AND WAS UPDATED ON PLAN OF CARE. PRN ZOFRAN GIVEN FOR COMPLAINTS OF NAUSEA, REASSESSED PARTIALLY EFFECTIVE. PT AFEBRILE AND COMFORTABLE, ALL NEEDS MET. SAFETY MEASURES IN PLACE. WILL CONTINUE TO MONITOR AND ENDORSE CARE TO DAY SHIFT RN.
[2018-02-15] MEDS: AMIODARONE 200 MG TAB PO SCH ×2 (08:10→20:45)
[2018-02-15] MEDS: BALSAM PERU/CASTOR OIL 60 GM TUBE TOP SCH (08:12)
--- NOTE | 2018-02-15 08:15 | PN ---
DATE: 02/15/2018 SUBJECTIVE: The patient remains critically ill on pressor support. The patient is scheduled for matt lysis today. The patient remains confused. No other events noted. OBJECTIVE: VITAL SIGNS: Blood pressure is 109/46, respirations 15, pulse 80, temperature 98.6. HEENT: Head is normocephalic. NECK: Supple. HEART: Regular rate. LUNGS: Show diminished breath sounds at the base. ABDOMEN: Soft, nontender to palpation without rebound or guarding. EXTREMITIES: Negative for clubbing, cyanosis. Trace edema. DERMATOLOGIC: No rashes. MUSCULOSKELETAL: No joint effusions. NEUROLOGIC: No change in exam. MEDICATIONS: Reviewed. LABORATORY DATA: Shows a sodium 133, BUN 29, creatinine is 2.49. Lactic acid 2.6. White count 13.7 and platelet count is 35. IMAGING STUDIES: The patient's chest x-ray on 02/14/18 shows pulmonary venous hypertension, AICD luciano cement, mild bilateral pleural effusions. ASSESSMENT AND PLAN: 1. End-stage renal disease. The patient is scheduled for dialysis today. We will dialyze for 3 peggy rs on a 3K bath, calcium 2.5, ultrafiltrate as tolerated. 2. Volume overload, improving. Continue ultrafiltration with dialysis if the patient remains hemody namically stable. 3. Anemia. Continue to monitor hemoglobin and hematocrit levels. We will give Epogen as needed. 4. Mineral bone disorder, monitor calcium and phosphorus levels. 5. Septic shock, etiology is secondary to urinary tract infection, bacteremia. The patient is being weaned off pressor support. Continue antibiotic therapy. 6. Acute encephalopathy, etiology is toxic metabolic. Continue to monitor. 7. Acute hypoxemic respiratory failure secondary to congestive heart failure, pneumonia. Continue c urrent antibiotic regimen. Continue supplemental oxygen and monitor. 8. Atrial fibrillation. Continue current treatment plan. 9. Diabetes with episodes of hypoglycemia. Continue current insulin regimen. 10. Hypernatremia, etiology in part due to hypertonic IV fluids. We will continue to monitor closel y. If sodium levels do not improve, we will recommend to change fluids. 11. Lactic acidosis secondary to septic shock. The patient's lactic acid levels have been improving . Continue to monitor. Dictated By: ROYAL VAZQUEZ/NTS Conf#: [id number] DID#: [id number] CC: TI ESPINO MD; KEANU CROUCH MD; NEGRITA DE LA CRUZ MD;*[facility]*
[2018-02-15] MEDS: traMADol 50 MG TAB PO PRN (09:10)
--- NOTE | 2018-02-15 09:52 | CONS ---
Date/Time of Note Date/Time of Note DATE: 02/15/18 TIME: 09:51 Consult Date/Type/Reason Admit Date/Time Feb 08, 2018 at 14:49 Initial Consult Date 02/12/18 Type of Consultation: Pulmonary ICU Requesting Provider: CHASITY MADSEN Subjective Patient more alert this morning. Still has very poor p.o. intake continues low- dose vasopressor support. Nasal cannula O2. Objective Vital Signs Date Temp Pulse Resp B/P (MAP) Pulse Ox O2 O2 Flow FiO2 Time Delivery Rate 02/15/18 86 08:00 02/15/18 17 92/50 (64) 100 Nasal 4.0 07:00 Cannula 02/15/18 97.6 04:00 02/11/18 21 20:10 Intake and Output 02/14/18 02/14/18 02/15/18 1515:00 23:00 07:00 IntakeIntake Total 509 ml 260.40 ml 25.04 ml OutputOutput Total 0 ml 0 ml 0 ml BalanceBalance 509 ml 260.40 ml 25.04 ml Exam GENERAL: Chronically ill-appearing lady comfortable at rest no acute distress VITAL SIGNS: per chart NECK: Supple. No JVD or lymphadenopathy. CARDIAC EXAM: S1, S2. No added sounds or murmurs. CHEST: Diminished air entry bilaterally with few rales ABDOMEN: Soft, nontender. No guarding or rebound. EXTREMITIES: No cyanosis, clubbing or edema. NEUROLOGIC: Generalized weakness. No focal deficits. Results/Medications Result Diagram: 02/15/18 0413 02/15/18 0413 Results 24 hrs Laboratory Tests Test 02/14/18 20:19 02/15/18 04:13 Bedside Glucose 110 White Blood Count 13.7 #H Red Blood Count 4.07 L Hemoglobin 13.2 Hematocrit 39.4 Mean Corpuscular Volume 96.8 Mean Corpuscular Hemoglobin 32.4 Mean Corpuscular Hemoglobin Concent 33.5 Red Cell Distribution Width 18.2 H Platelet Count 35 L Mean Platelet Volume 12.8 H Immature Granulocytes % 0.600 H Neutrophils % 84.9 H Lymphocytes % 6.2 L Monocytes % 7.2 Eosinophils % 0.4 Basophils % 0.7 Nucleated Red Blood Cells % 0.0 Immature Granulocytes # 0.080 H Neutrophils # 11.6 H Lymphocytes # 0.9 Monocytes # 1.0 H Eosinophils # 0.1 Basophils # 0.1 Nucleated Red Blood Cells # 0.0 Sodium Level 133 L Potassium Level 3.9 Chloride Level 93 L Carbon Dioxide Level 30 Anion Gap 10 # Blood Urea Nitrogen 29 H Creatinine 2.49 H Est Glomerular Filtrat Rate mL/min Glucose Level 98 Lactic Acid Level 2.6 *H Calcium Level 9.2 Phosphorus Level 3.4 Magnesium Level 1.9 Medications Current Medications Digoxin (Digoxin) 0.125 mg DAILY@1300 PO Last administered on 02/14/18 14:49; Admin Dose 0.125 MG; Start 02/09/18 at 13:00 Levothyroxine Sodium (Synthroid) 25 mcg BEFORE BREAKFAST PO Last administered on 02/13/18 06:05; Admin Dose 25 MCG; Start 02/09/18 at 07:00 IV Flush (NS 3 ml) 3 ml PER PROTOCOL IV ; Start 02/08/18 at 16:30 Dextrose (D50w Syringe) 50 ml Q10MIN PRN IV hypoglycemia Last administered on 02/09/18at 23:42; Admin Dose 50 ML; Start 02/08/18 at 16:30 Tramadol HCl (Ultram) 50 mg Q6H PRN PO MODERATE PAIN LEVEL 4-6 Last adminis tered on 02/15/18 09:10; Admin Dose 50 MG; Start 02/09/18 at 01:30 IV Flush (NS 10 ml) 10 ml PRN PRN IV IV PROTOCOL; Start 02/09/18 at 18:00 Phenylephrine HCl 40 mg/Dextrose 250 ml @ 37.5 mls/hr TITRATE IV ; Start 02/09/18 at 22:00 Ondansetron HCl (Zofran Inj) 4 mg Q4H PRN IV NAUSEA AND/OR VOMITING Last administered on 02/15/18 06:33; Admin Dose 4 MG; Start 02/09/18 at 23:00 Dextrose 1,000 ml @ 50 mls/hr Q20H IV Last administered on 02/14/18 06:16; Admin Dose 50 MLS/HR; Start 02/10/18 at 11:00 Norepinephrine 32 mg/Dextrose 250 ml @ 0.47 mls/hr TITRATE IV Last administered on 02/12/18at 02:41; Admin Dose 6.33 MLS/HR; Start 02/10/18 at 19:30 Gentamicin Sulfate (Gentamicin Iv Per Pharmacy) GENTAMICIN PER PHARM... NOTE XX ; Start 02/11/18 at 10:00 Gentamicin Sulfate 60 mg/ Sodium Chloride 51.5 ml @ 103 mls/hr AFTER DIALYSIS IVPB Last administered on 02/13/18at 18:18; Admin Dose 103 MLS/HR; Start 02/12/18 at 11:00 Ceftriaxone Sodium 50 ml @ 100 mls/hr Q24H IVPB Last administered on 02/14/18at 17:44; Admin Dose 100 MLS/HR; Start 02/11/18 at 16:00 Amiodarone HCl (Cordarone) 200 mg BID PO Last administered on 02/15/18 08:10; Admin Dose 200 MG; Start 02/11/18 at 13:30 Heparin Sodium (Porcine) (Heparin (1000 Units/ml)) 4,000 unit AFTER DIALYSIS CATHETER Last administered on 02/13/18at 14:26; Admin Dose 4,000 UNIT; Start 02/11/18 at 14:00 Lorazepam (Ativan) 1 mg DAILY PRN PO ANXIETY Last administered on 02/13/18at 13:03; Admin Dose 1 MG; Start 02/13/18 at 13:00 Midodrine (Proamatine) 5 mg Q8 PO Last administered on 02/15/18 06:37; Admin Dose 5 MG; Start 02/14/18 at 22:00 Assessment/Plan Chief Complaint/Hosp Course IMP: 1. Status post shock--likely distributive in nature due to sepsis. 2. Cardiomyopathy 3. Bacteremia--r/o catheter-related infection 4. Afib 5. CKD--on HD 6. Hypoglycemia 7. Anemia RECS: 1. IV abx per ID 2. Aspiration precautions. 3. Titrate levophed gtt targeting MAP 55-60 mm Hg 4. Check cortisol level. May have a component of adrenal insufficiency. 5. Am labs 6. Hemodialysis as tolerated Critical care time 40 minutes. Discussed with staff. MICHELINE KUHN MD, [facility] Feb 15, 2018 09:52
--- NOTE | 2018-02-15 10:12 | CONS ---
Date/Time of Note Date/Time of Note DATE: 02/15/18 TIME: 10:10 Assessment/Plan Assessment/Plan Hospital Course IMPRESSION: 1. Hypotension/shock, likely combination of septic and cardiogenic.-currently off 2. Cardiomyopathy with severely depressed left ventricular ejection fraction by outside hospital echo 11/2017 revealing ejection fraction of 20%. Now aagin by echo here at H 20% 3. A biventricular ICD with ongoing pacing.- Normal function by interrogation 02/09 4. Atrial fibrillation-also seen on interrogation 02/09 5. End-stage renal disease on hemodialysis. 6. Hyperkalemia. 7. Pancytopenia. 8. Hyponatremia. 9. Coagulopathy. 10. Hypothyroidism. 11.Positive troponin-minimal in the setting of esrd . Now trended negative 12. Bacteremia-GNR 14.UTI Recc: -ICU -continue digoxin -Continue PO amio -HD for volume removal as tolerated -Continue abx's and f/u cx data -would consider d/c/wean of midodrine as pure afterload with severe systolic dysfunction Result Diagram: 02/15/18 0413 02/15/18 0413 Results 24hrs Laboratory Tests Test 02/14/18 20:19 02/15/18 04:13 Bedside Glucose 110 White Blood Count 13.7 #H Red Blood Count 4.07 L Hemoglobin 13.2 Hematocrit 39.4 Mean Corpuscular Volume 96.8 Mean Corpuscular Hemoglobin 32.4 Mean Corpuscular Hemoglobin Concent 33.5 Red Cell Distribution Width 18.2 H Platelet Count 35 L Mean Platelet Volume 12.8 H Immature Granulocytes % 0.600 H Neutrophils % 84.9 H Lymphocytes % 6.2 L Monocytes % 7.2 Eosinophils % 0.4 Basophils % 0.7 Nucleated Red Blood Cells % 0.0 Immature Granulocytes # 0.080 H Neutrophils # 11.6 H Lymphocytes # 0.9 Monocytes # 1.0 H Eosinophils # 0.1 Basophils # 0.1 Nucleated Red Blood Cells # 0.0 Sodium Level 133 L Potassium Level 3.9 Chloride Level 93 L Carbon Dioxide Level 30 Anion Gap 10 # Blood Urea Nitrogen 29 H Creatinine 2.49 H Est Glomerular Filtrat Rate mL/min Glucose Level 98 Lactic Acid Level 2.6 *H Calcium Level 9.2 Phosphorus Level 3.4 Magnesium Level 1.9 Consultation Date/Type/Reason Admit Date/Time Feb 08, 2018 at 14:49 Initial Consult Date 02/09/18 Type of Consult cardiology Reason for Consultation CHF Requesting Provider: CHASITY MADSEN Exam/Review of Systems Vital Signs Vitals Vital Signs Date Temp Pulse Resp B/P (MAP) Pulse Ox O2 O2 Flow FiO2 Time Delivery Rate 02/15/18 86 08:00 02/15/18 17 92/50 (64) 100 Nasal 4.0 07:00 Cannula 02/15/18 97.6 04:00 02/11/18 21 20:10 Intake and Output 02/14/18 02/14/18 02/15/18 1515:00 23:00 07:00 IntakeIntake Total 509 ml 260.40 ml 25.04 ml OutputOutput Total 0 ml 0 ml 0 ml BalanceBalance 509 ml 260.40 ml 25.04 ml Exam Review of Systems: CONSTITUTIONAL: No fevers, chills. PULMONARY: No sob CARDIOVASCULAR: hypotension GASTROINTESTINAL: No nausea/vomiting. GENITOURINARY: No hematuria/dysuria. MUSCULOSKELETAL: No myagias/arthalgias. PSYCHIATRIC: The patient denies depression. NEUROLOGIC: No weakness Constitutional: alert Psych: no complaints Head: normocephalic ENMT: mucosa pink and moist Neck: supple, jvd (9 cm water) Respiratory: diminished breath sounds (at bases/B) Cardiovascular: regular rate and rhythm Gastrointestinal: soft, non-tender Musculoskeletal: muscle tone (normal) Extremities: edema (none) Neurological: other (No focal deficits) Medications Medications Current Medications Digoxin (Digoxin) 0.125 mg DAILY@1300 PO Last administered on 02/14/18at 14:49; Admin Dose 0.125 MG; Start 02/09/18 at 13:00 Levothyroxine Sodium (Synthroid) 25 mcg BEFORE BREAKFAST PO Last administered on 02/13/18at 06:05; Admin Dose 25 MCG; Start 02/09/18 at 07:00 IV Flush (NS 3 ml) 3 ml PER PROTOCOL IV ; Start 02/08/18 at 16:30 Dextrose (D50w Syringe) 50 ml Q10MIN PRN IV hypoglycemia Last administered on 02/09/18at 23:42; Admin Dose 50 ML; Start 02/08/18 at 16:30 Tramadol HCl (Ultram) 50 mg Q6H PRN PO MODERATE PAIN LEVEL 4-6 Last administered on 02/15/18 09:10; Admin Dose 50 MG; Start 02/09/18 at 01:30 IV Flush (NS 10 ml) 10 ml PRN PRN IV IV PROTOCOL; Start 02/09/18 at 18:00 Phenylephrine HCl 40 mg/Dextrose 250 ml @ 37.5 mls/hr TITRATE IV ; Start 02/09/18 at 22:00 Ondansetron HCl (Zofran Inj) 4 mg Q4H PRN IV NAUSEA AND/OR VOMITING Last administered on 02/15/18 06:33; Admin Dose 4 MG; Start 02/09/18 at 23:00 Dextrose 1,000 ml @ 50 mls/hr Q20H IV Last administered on 02/14/18 06:16; Admin Dose 50 MLS/HR; Start 02/10/18 at 11:00 Norepinephrine 32 mg/Dextrose 250 ml @ 0.47 mls/hr TITRATE IV Last administered on 02/12/18 02:41; Admin Dose 6.33 MLS/HR; Start 02/10/18 at 19:30 Gentamicin Sulfate (Gentamicin Iv Per Pharmacy) GENTAMICIN PER PHARM... NOTE XX ; Start 02/11/18 at 10:00 Gentamicin Sulfate 60 mg/ Sodium Chloride 51.5 ml @ 103 mls/hr AFTER DIALYSIS IVPB Last administered on 02/13/18 18:18; Admin Dose 103 MLS/HR; Start 02/12/18 at 11:00 Ceftriaxone Sodium 50 ml @ 100 mls/hr Q24H IVPB Last administered on 02/14/18 17:44; Admin Dose 100 MLS/HR; Start 02/11/18 at 16:00 Amiodarone HCl (Cordarone) 200 mg BID PO Last administered on 02/15/18 08:10; Admin Dose 200 MG; Start 02/11/18 at 13:30 Heparin Sodium (Porcine) (Heparin (1000 Units/ml)) 4,000 unit AFTER DIALYSIS CATHETER Last administered on 02/13/18 14:26; Admin Dose 4,000 UNIT; Start 02/11/18 at 14:00 Lorazepam (Ativan) 1 mg DAILY PRN PO ANXIETY Last administered on 02/13/18 13:03; Admin Dose 1 MG; Start 02/13/18 at 13:00 Midodrine (Proamatine) 5 mg Q8 PO Last administered on 02/15/18at 06:37; Admin Dose 5 MG; Start 02/14/18 at 22:00 TI ESPINO Feb 15, 2018 10:12
[2018-02-15] MEDS: NORepinephrine 32 MG in DEXTROSE 5% 218 ML IV SCH (12:28)
[2018-02-15] MEDS: DEXTROSE 10% 1,000 ML IV SCH ×2 (12:28→19:03)
[2018-02-15] MEDS: DIGOXIN 0.125 MG TAB PO SCH (12:41)
[2018-02-15] MEDS: PANTOPRAZOLE (EC) 40 MG TAB PO SCH (12:42)
--- NOTE | 2018-02-15 12:58 | CONS ---
Date/Time of Note Date/Time of Note DATE: 02/15/18 TIME: 12:56 Assessment/Plan Assessment/Plan Hospital Course No acute changes overnight patient is awake looks comfortable on low-dose levo fed drip no fevers Temperature 97.6 pulse 80 respirations 17 blood pressure 92/50 saturation 100 on 4 L nasal cannula WBC 13.7 H&H 13.2 and 39.4 platelets 35 neutrophils 84.9 Lactic acid is 2.6 Microbiology: Blood culture on admission grew Citrobacter, urine culture grew gram-negative rods, repeat blood cultures negative Chest x-ray this morning revealed slight improvement in the right basilar aeration Antimicrobials: Rocephin, gentamicin Indwelling's: Right chest permacath, PICC line 02/09/18 Physical examination: This is a chronically ill-appearing elderly woman who is lethargic in no distress. Head atraumatic normocephalic sclera nonicteric. Vehicle mucosa dry. Neck is supple chest rise symmetrical breath sounds diminished bases. Heart: S1-S2, irregular. Abdomen soft bowel sounds hypoactive. Extremities cyanotic with trace edema and multiple ecchymosis and bruises Assessment: 1. Severe sepsis with shock, possibly also cardiogenic 2. Gram-negative sheeba bacteremia, likely 2 to UTI 3. Gram-negative rods UTI 4. Status post rapid atrial fibrillation 5. End-stage renal disease, hemodialysis dependent 6. History of CVA and hypertension 7. Pancytopenia Plan: Patient remains on Levophed drip, repeated blood cultures from permacath negative, continue antibiotics, will repeat blood cultures from permacath, continue gentamicin, DC Rocephin Result Diagram: 02/15/18 0413 02/15/18 0413 Results 24hrs Laboratory Tests Test 02/14/18 20:19 02/15/18 04:13 Bedside Glucose 110 White Blood Count 13.7 #H Red Blood Count 4.07 L Hemoglobin 13.2 Hematocrit 39.4 Mean Corpuscular Volume 96.8 Mean Corpuscular Hemoglobin 32.4 Mean Corpuscular Hemoglobin Concent 33.5 Red Cell Distribution Width 18.2 H Platelet Count 35 L Mean Platelet Volume 12.8 H Immature Granulocytes % 0.600 H Neutrophils % 84.9 H Lymphocytes % 6.2 L Monocytes % 7.2 Eosinophils % 0.4 Basophils % 0.7 Nucleated Red Blood Cells % 0.0 Immature Granulocytes # 0.080 H Neutrophils # 11.6 H Lymphocytes # 0.9 Monocytes # 1.0 H Eosinophils # 0.1 Basophils # 0.1 Nucleated Red Blood Cells # 0.0 Sodium Level 133 L Potassium Level 3.9 Chloride Level 93 L Carbon Dioxide Level 30 Anion Gap 10 # Blood Urea Nitrogen 29 H Creatinine 2.49 H Est Glomerular Filtrat Rate mL/min Glucose Level 98 Lactic Acid Level 2.6 *H Calcium Level 9.2 Phosphorus Level 3.4 Magnesium Level 1.9 Consultation Date/Type/Reason Admit Date/Time Feb 08, 2018 at 14:49 Initial Consult Date Type of Consult id Requesting Provider: CHASITY MADSEN Exam/Review of Systems Vital Signs Vitals Vital Signs Date Temp Pulse Resp B/P (MAP) Pulse Ox O2 O2 Flow FiO2 Time Delivery Rate 02/15/18 85 12:00 02/15/18 17 92/50 (64) 100 Nasal 4.0 07:00 Cannula 02/15/18 97.6 04:00 02/11/18 21 20:10 Intake and Output 02/14/18 02/14/18 02/15/18 1515:00 23:00 07:00 IntakeIntake Total 509 ml 260.40 ml 25.04 ml OutputOutput Total 0 ml 0 ml 0 ml BalanceBalance 509 ml 260.40 ml 25.04 ml Medications Medications Current Medications Digoxin (Digoxin) 0.125 mg DAILY@1300 PO Last administered on 02/15/18 12:41; Admin Dose 0.125 MG; Start 02/09/18 at 13:00 Levothyroxine Sodium (Synthroid) 25 mcg BEFORE BREAKFAST PO Last administered on 02/13/18at 06:05; Admin Dose 25 MCG; Start 02/09/18 at 07:00 IV Flush (NS 3 ml) 3 ml PER PROTOCOL IV ; Start 02/08/18 at 16:30 Dextrose (D50w Syringe) 50 ml Q10MIN PRN IV hypoglycemia Last administered on 02/09/18at 23:42; Admin Dose 50 ML; Start 02/08/18 at 16:30 Tramadol HCl (Ultram) 50 mg Q6H PRN PO MODERATE PAIN LEVEL 4-6 Last administered on 02/15/18 09:10; Admin Dose 50 MG; Start 02/09/18 at 01:30 IV Flush (NS 10 ml) 10 ml PRN PRN IV IV PROTOCOL; Start 02/09/18 at 18:00 Phenylephrine HCl 40 mg/Dextrose 250 ml @ 37.5 mls/hr TITRATE IV ; Start 02/09/18 at 22:00 Ondansetron HCl (Zofran Inj) 4 mg Q4H PRN IV NAUSEA AND/OR VOMITING Last admi nistered on 02/15/18 06:33; Admin Dose 4 MG; Start 02/09/18 at 23:00 Dextrose 1,000 ml @ 50 mls/hr Q20H IV Last administered on 02/14/18 06:16; Admin Dose 50 MLS/HR; Start 02/10/18 at 11:00 Norepinephrine 32 mg/Dextrose 250 ml @ 0.47 mls/hr TITRATE IV Last administered on 02/15/18 12:28; Admin Dose 2.77 MLS/HR; Start 02/10/18 at 19:30 Gentamicin Sulfate (Gentamicin Iv Per Pharmacy) GENTAMICIN PER PHARM... NOTE XX ; Start 02/11/18 at 10:00 Gentamicin Sulfate 60 mg/ Sodium Chloride 51.5 ml @ 103 mls/hr AFTER DIALYSIS IVPB Last administered on 02/13/18 18:18; Admin Dose 103 MLS/HR; Start 02/12/18 at 11:00 Ceftriaxone Sodium 50 ml @ 100 mls/hr Q24H IVPB Last administered on 02/14/18 17:44; Admin Dose 100 MLS/HR; Start 02/11/18 at 16:00 Amiodarone HCl (Cordarone) 200 mg BID PO Last administered on 02/15/18 08:10; Admin Dose 200 MG; Start 02/11/18 at 13:30 Heparin Sodium (Porcine) (Heparin (1000 Units/ml)) 4,000 unit AFTER DIALYSIS CATHETER Last administered on 02/13/18 14:26; Admin Dose 4,000 UNIT; Start 02/11/18 at 14:00 Lorazepam (Ativan) 1 mg DAILY PRN PO ANXIETY Last administered on 02/13/18 13:03; Admin Dose 1 MG; Start 02/13/18 at 13:00 Midodrine (Proamatine) 5 mg Q8 PO Last administered on 02/15/18 06:37; Admin Dose 5 MG; Start 1/1/19 at 22:00 Pantoprazole (Protonix Tab) 40 mg DAILY@06 PO Last administered on 02/15/18at 12:42; Admin Dose 40 MG; Start 02/15/18 at 11:00 LINDY MARQUEZ NP Feb 15, 2018 12:58
--- NOTE | 2018-02-15 14:07 | PN ---
Date/Time of Note Date/Time of Note DATE: 02/15/18 TIME: 14:06 Assessment/Plan VTE Prophylaxis Risk score (from Nsg)>0 risk: 12 SCD applied (from Nsg): No Lines/Catheters IV Catheter Type (from Nrsg): PICC Line Urinary Cath still in place: No Assessment/Plan Assessment/Plan 1. Acute metabolic encephalopathy secondary to septic shock secondary to UTI and bacteremia Continue Rocephin and gentamicin Continue midodrine and pressor support as needed Patient has likely baseline hypotension ID following, question line sepsis 2. End-stage renal disease Continue HD 3. Hypoglycemia A1c within normal limits and sugars have been stable, DC sliding scale DC D10 Monitor 4. A. fib with history of pacemaker placement No acute issues Continue amiodarone Holding anticoagulation Cardiology following Prophylaxis: Not given due to thrombocytopenia Result Diagram: 02/15/18 0413 02/15/18 0413 Results 24hrs Laboratory Tests Test 02/14/18 20:19 02/15/18 04:13 02/15/18 12:20 Bedside Glucose 110 White Blood Count 13.7 #H Red Blood Count 4.07 L Hemoglobin 13.2 Hematocrit 39.4 Mean Corpuscular Volume 96.8 Mean Corpuscular Hemoglobin 32.4 Mean Corpuscular Hemoglobin Concent 33.5 Red Cell Distribution Width 18.2 H Platelet Count 35 L Mean Platelet Volume 12.8 H Immature Granulocytes % 0.600 H Neutrophils % 84.9 H Lymphocytes % 6.2 L Monocytes % 7.2 Eosinophils % 0.4 Basophils % 0.7 Nucleated Red Blood Cells % 0.0 Immature Granulocytes # 0.080 H Neutrophils # 11.6 H Lymphocytes # 0.9 Monocytes # 1.0 H Eosinophils # 0.1 Basophils # 0.1 Nucleated Red Blood Cells # 0.0 Sodium Level 133 L Potassium Level 3.9 Chloride Level 93 L Carbon Dioxide Level 30 Anion Gap 10 # Blood Urea Nitrogen 29 H Creatinine 2.49 H Est Glomerular Filtrat Rate mL/min Glucose Level 98 Lactic Acid Level 2.6 *H Calcium Level 9.2 Phosphorus Level 3.4 Magnesium Level 1.9 Random Cortisol 45.5 Exam/Review of Systems Vital Signs Vitals Vital Signs Date Temp Pulse Resp B/P (MAP) Pulse Ox O2 O2 Flow FiO2 Time Delivery Rate 02/15/18 85 12:00 02/15/18 17 92/50 (64) 100 Nasal 4.0 07:00 Cannula 02/15/18 97.6 04:00 02/11/18 21 20:10 Intake and Output 02/14/18 02/14/18 02/15/18 1515:00 23:00 07:00 IntakeIntake Total 509 ml 260.40 ml 25.04 ml OutputOutput Total 0 ml 0 ml 0 ml BalanceBalance 509 ml 260.40 ml 25.04 ml Medications Medications Current Medications Digoxin (Digoxin) 0.125 mg DAILY@1300 PO Last administered on 02/15/18 12:41; Admin Dose 0.125 MG; Start 02/09/18 at 13:00 Levothyroxine Sodium (Synthroid) 25 mcg BEFORE BREAKFAST PO Last administered on 02/13/18 06:05; Admin Dose 25 MCG; Start 02/09/18 at 07:00 IV Flush (NS 3 ml) 3 ml PER PROTOCOL IV ; Start 02/08/18 at 16:30 Dextrose (D50w Syringe) 50 ml Q10MIN PRN IV hypoglycemia Last administered on 02/09/18at 23:42; Admin Dose 50 ML; Start 02/08/18 at 16:30 Tramadol HCl (Ultram) 50 mg Q6H PRN PO MODERATE PAIN LEVEL 4-6 Last administered on 02/15/18 09:10; Admin Dose 50 MG; Start 02/09/18 at 01:30 IV Flush (NS 10 ml) 10 ml PRN PRN IV IV PROTOCOL; Start 02/09/18 at 18:00 Phenylephrine HCl 40 mg/Dextrose 250 ml @ 37.5 mls/hr TITRATE IV ; Start 02/09/18 at 22:00 Ondansetron HCl (Zofran Inj) 4 mg Q4H PRN IV NAUSEA AND/OR VOMITING Last administered on 02/15/18 06:33; Admin Dose 4 MG; Start 02/09/18 at 23:00 Dextrose 1,000 ml @ 50 mls/hr Q20H IV Last administered on 02/14/18 06:16; Admin Dose 50 MLS/HR; Start 02/10/18 at 11:00 Norepinephrine 32 mg/Dextrose 250 ml @ 0.47 mls/hr TITRATE IV Last admini stered on 02/15/18 12:28; Admin Dose 2.77 MLS/HR; Start 02/10/18 at 19:30 Gentamicin Sulfate (Gentamicin Iv Per Pharmacy) GENTAMICIN PER PHARM... NOTE XX ; Start 02/11/18 at 10:00 Gentamicin Sulfate 60 mg/ Sodium Chloride 51.5 ml @ 103 mls/hr AFTER DIALYSIS IVPB Last administered on 02/13/18at 18:18; Admin Dose 103 MLS/HR; Start 02/12/18 at 11:00 Amiodarone HCl (Cordarone) 200 mg BID PO Last administered on 02/15/18at 08:10; Admin Dose 200 MG; Start 02/11/18 at 13:30 Heparin Sodium (Porcine) (Heparin (1000 Units/ml)) 4,000 unit AFTER DIALYSIS CATHETER Last administered on 02/13/18at 14:26; Admin Dose 4,000 UNIT; Start 02/11/18 at 14:00 Lorazepam (Ativan) 1 mg DAILY PRN PO ANXIETY Last administered on 02/13/18at 13:03; Admin Dose 1 MG; Start 02/13/18 at 13:00 Midodrine (Proamatine) 5 mg Q8 PO Last administered on 02/15/18at 06:37; Admin Dose 5 MG; Start 02/14/18 at 22:00 Pantoprazole (Protonix Tab) 40 mg DAILY@06 PO Last administered on 02/15/18at 12:42; Admin Dose 40 MG; Start 02/15/18 at 11:00 RINA VERMA Feb 15, 2018 14:06
--- NOTE | 2018-02-15 14:10 | NUR ---
PT EVAL Therapy day number 1 Evaluation Start Time 13:10 Evaluation Total Time 0 min Subjective Current complaint of pain Pain Scale FACES Pain Intensity 5 (0-10) Patient Stated Goal for Pain Relief 0 (0-10) Pain Level Comment B UE and B LE Pre Treatment Vital Signs Stable Yes - 101/44, 99%O2 sats on 3LO2, 80bpm Exercise Assessment Label Bilat Lower Extremity Exercise Type Active ROM Additional Exercise Comments semi-supine APs, heel slides, SLR Supine to Sit Moderate Assist Bed Mobility Sit to Supine Dependent Sitting Tolerance 10 min Additional Mobility Comments modA to maintain static sitting, retropulsion and L-side leaning Patient uses wheelchair Not Applicable Additional Gait Comments TBA Static Sitting Balance Poor plus Dynamic Sitting Balance Poor Additional Balance Assessments Comments unsafe to assess standing at this time Safety Judgement Poor Activity Tolerance Poor Equipment Present A pump Additional Equipment Present ICU lines, 3LO2 via NC Post Treatment Pain Intensity 0 0-10 Variance Documentation SEE PT EVAL PT Technical Record Comment PT EVAL Pt is a 72 yo F with PMH of systolic CHF, DMII, ESRD, Afib with PPM who presents with hypoglycemia, sepsis and ARF. Chest imaging shows marked cardiomegaly, ongoing pulmonary vascular congestion, and small L pleural effusion. Pt received in ICU. Precautions: Fall precautions PLOF: Per pt, pt lives with dtr in 3rd floor apartment with elevator access. Ambulatory with 4WW prior to admission. CLOF: [facility] [place] cleared pt for PT evaluation. Pt received in bed, vitals assessed and stable. Communication via phone court interpreter (FRENCH). Pt educated in purpose of PT eval, agreeable. Pt educated in and performed supine therex per chart with poor return. Bed mobility assessed as above. Unsafe to attempt standing at this time without 2 person assist. Pt returned to bed, all needs in reach, no signs of distress. RN notified of pt's status. End vitals 91/49, 97%O2 sats on 3LO2, 82bpm. Recommendation: Pt demonstrates severe generalized weakness, unable to maintain static sitting at EOB without modA and requiring maxA-dependent to return to supine in bed. Unsafe to progress to standing at this time, recommend 2nd person assist. Pt will benefit from additional skilled PT services during hospital stay to improve overall strength and decrease caregiver burden. D/c recommendation pending pt progress, at this time recommend post-acute setting (SNF) once cleared by MD for further therapies. Plan: Continue c PT POC (Daily x 5)
[2018-02-15] MEDS ORDERED: ACETAMINOPHEN 325 MG TAB PO PRN (16:30)
[2018-02-15] MEDS: GENTAMICIN 60 MG in SOD CHLORIDE 0.9% 50 ML IVPB SCH (19:00)
--- NOTE | 2018-02-15 20:22 | NUR ---
Pt. remains on Levophed gtt, requiring titration during Dialysis. Remains between paced and AFIB. Appetite slightly improved. D10 infusion continued. Dialysis performed and gentamicin administered after, 500 mls removed per order.
--- NOTE | 2018-02-15 21:05 | PN ---
Date/Time of Note Date/Time of Note DATE: 02/15/18 TIME: 16:10 Assessment/Plan VTE Prophylaxis Risk score [place] [facility] [place] risk: 12 SCD applied ([place] [facility] [place] Yes Pharmacological prophylaxis: NA/contraindicated Pharm contraindication: thrombocytopenia Lines/Catheters IV Catheter Type (from [facility]): PICC Line Central line still needed: Yes Urinary Cath still in place: No Assessment/Plan Result Diagram: 02/15/18 0413 02/15/18 0413 Results 24hrs Laboratory Tests Test 02/14/18 20:19 02/15/18 04:13 02/15/18 12:20 Bedside Glucose 110 White Blood Count 13.7 #H Red Blood Count 4.07 L Hemoglobin 13.2 Hematocrit 39.4 Mean Corpuscular Volume 96.8 Mean Corpuscular Hemoglobin 32.4 Mean Corpuscular Hemoglobin Concent 33.5 Red Cell Distribution Width 18.2 H Platelet Count 35 L Mean Platelet Volume 12.8 H Immature Granulocytes % 0.600 H Neutrophils % 84.9 H Lymphocytes % 6.2 L Monocytes % 7.2 Eosinophils % 0.4 Basophils % 0.7 Nucleated Red Blood Cells % 0.0 Immature Granulocytes # 0.080 H Neutrophils # 11.6 H Lymphocytes # 0.9 Monocytes # 1.0 H Eosinophils # 0.1 Basophils # 0.1 Nucleated Red Blood Cells # 0.0 Sodium Level 133 L Potassium Level 3.9 Chloride Level 93 L Carbon Dioxide Level 30 Anion Gap 10 # Blood Urea Nitrogen 29 H Creatinine 2.49 H Est Glomerular Filtrat Rate mL/min Glucose Level 98 Lactic Acid Level 2.6 *H Calcium Level 9.2 Phosphorus Level 3.4 Magnesium Level 1.9 Random Cortisol 45.5 Subjective 24 Hr Interval Summary Free Text/Dictation Subjective: feels very tired Objective: Constitutional: alert, oriented lethargic, chronically ill looking, frail Head: atraumatic, normocephalic Neck: non-tender, supple Respiratory: clear to auscultation Cardiovascular: regular rate and rhythm Gastrointestinal: S/ NT / ND / +BS Extremities: no edema, good radial pulses assessment and PLan: 1. Ongoing Hypotension/shock, likely combination of septic and cardiogenic. -remains on pressor support -cardio recommends to d.c or wean off midodrine -continue routine abx -albumin with HD 2. Bacteremia-Citrobacter -concern for line sepsis but so far cultures from the line and repeat blood cultures have bee negative -ID following, continue current abx 3. GNR UTI -f/u final ID and sensitivities -ID managing abx 4. ESRD on HD -continue routin HD per renal 5. Cardiomyopathy with severely depressed left ventricular ejection fraction by outside hospital echo 11/2017 revealing ejection fraction of 20%. Now again by echo here at [facility] 20% -cannot tolerate BB, diuresis with HD 6. Atrial fibrillation-also seen on interrogation 02/09 -on digoxin and amiodarone per cardiology -Cannot tolerate anticoagulation 2/2 thrombocytopenia 7. Thrombocytopenia -chronic likely associated with Uremia -no evidence of acute bleeding, monitor 8. Biventricular ICD with ongoing pacing. - Normal function by interrogation 02/09 9. Positive troponin-minimal in the setting of esrd . -Now trended negative 10. Hypothyroidism. -on synthroid 11. Debilty -patient very frail -Daughter care for her at home, plan to d/c back home once stable 12. Generalized Pain -was on 50 tramadol, may be contributing to hypotension, will d/c Dispo: -reduce midodrine dosing -continue ICU care and try to wea off pressor support -PT eval -Nutrition consult -ICU supportive care CRITICAL CARE TIME: >35 mins Exam/Review of Systems Vital Signs Vitals Vital Signs Date Temp Pulse Resp B/P (MAP) Pulse Ox O2 O2 Flow FiO2 Time Delivery Rate 02/15/18 85 12:00 02/15/18 17 92/50 (64) 100 Nasal 4.0 07:00 Cannula 02/15/18 97.6 04:00 02/11/18 21 20:10 Intake and Output 02/14/18 02/14/18 02/15/18 1515:00 23:00 07:00 IntakeIntake Total 509 ml 260.40 ml 25.04 ml OutputOutput Total 0 ml 0 ml 0 ml BalanceBalance 509 ml 260.40 ml 25.04 ml Medications Medications Current Medications Digoxin (Digoxin) 0.125 mg DAILY@1300 PO Last administered on 02/15/18at 12:41; Admin Dose 0.125 MG; Start 02/09/18 at 13:00 Levothyroxine Sodium (Synthroid) 25 mcg BEFORE BREAKFAST PO Last administered on 02/13/18at 06:05; Admin Dose 25 MCG; Start 02/09/18 at 07:00 IV Flush (NS 3 ml) 3 ml PER PROTOCOL IV ; Start 02/08/18 at 16:30 Dextrose (D50w Syringe) 50 ml Q10MIN PRN IV hypoglycemia Last administered on 02/09/18at 23:42; Admin Dose 50 ML; Start 02/08/18 at 16:30 Tramadol HCl (Ultram) 50 mg Q6H PRN PO MODERATE PAIN LEVEL 4-6 Last administered on 02/15/18 09:10; Admin Dose 50 MG; Start 02/09/18 at 01:30 IV Flush (NS 10 ml) 10 ml PRN PRN IV IV PROTOCOL; Start 02/09/18 at 18:00 Phenylephrine HCl 40 mg/Dextrose 250 ml @ 37.5 mls/hr TITRATE IV ; Start 02/09/18 at 22:00 Ondansetron HCl (Zofran Inj) 4 mg Q4H PRN IV NAUSEA AND/OR VOMITING Last administered on 02/15/18 06:33; Admin Dose 4 MG; Start 02/09/18 at 23:00 Dextrose 1,000 ml @ 50 mls/hr Q20H IV Last administered on 02/14/18 06:16; Admin Dose 50 MLS/HR; Start 02/10/18 at 11:00 Norepinephrine 32 mg/Dextrose 250 ml @ 0.47 mls/hr TITRATE IV Last adm inistered on 02/15/18 12:28; Admin Dose 2.77 MLS/HR; Start 02/10/18 at 19:30 Gentamicin Sulfate (Gentamicin Iv Per Pharmacy) GENTAMICIN PER PHARM... NOTE XX ; Start 02/11/18 at 10:00 Gentamicin Sulfate 60 mg/ Sodium Chloride 51.5 ml @ 103 mls/hr AFTER DIALYSIS IVPB Last administered on 02/13/18 18:18; Admin Dose 103 MLS/HR; Start 02/12/18 at 11:00 Amiodarone HCl (Cordarone) 200 mg BID PO Last administered on 02/15/18 08:10; Admin Dose 200 MG; Start 02/11/18 at 13:30 Heparin Sodium (Porcine) (Heparin (1000 Units/ml)) 4,000 unit AFTER DIALYSIS CATHETER Last administered on 02/13/18 14:26; Admin Dose 4,000 UNIT; Start 02/11/18 at 14:00 Lorazepam (Ativan) 1 mg DAILY PRN PO ANXIETY Last administered on 02/13/18at 13:03; Admin Dose 1 MG; Start 02/13/18 at 13:00 Midodrine (Proamatine) 5 mg Q8 PO Last administered on 02/15/18at 06:37; Admin Dose 5 MG; Start 02/14/18 at 22:00 Pantoprazole (Protonix Tab) 40 mg DAILY@06 PO Last administered on 02/15/18at 12:42; Admin Dose 40 MG; Start 02/15/18 at 11:00 RINA VERMA Feb 15, 2018 16:20
[2018-02-15] MEDS: LORAZEPAM 1 MG TAB PO PRN (22:21)
[2018-02-16] VITALS (86 sets, daily range): BP systolic 59–122; BP diastolic 39–91; PULSE 61–98; RESP 9–30
[2018-02-16] MEDS: PANTOPRAZOLE (EC) 40 MG TAB PO SCH (06:00)
[2018-02-16] MEDS: LEVOTHYROXINE 25 MCG TAB PO SCH (06:27)
--- NOTE | 2018-02-16 06:27 | NUR ---
EOSS: No acute changes overnight. Patient remains on Levophed 15mcg/min to keep SBP greater than 80. AV-Paced throughout the night; HR 80's. x1 BM. Will continue to monitor closely.
--- NOTE | 2018-02-16 08:01 | NUR ---
[facility] called regarding HD to be done on 02.17.18. confirmation #[id number]
--- NOTE | 2018-02-16 08:37 | PN ---
Date/Time of Note Date/Time of Note DATE: 02/16/18 TIME: 08:36 Assessment/Plan VTE Prophylaxis Risk score (from [facility] [place]0 risk: 10 SCD applied (from [facility] [place]): Yes Pharmacological prophylaxis: NA/contraindicated Pharm contraindication: thrombocytopenia Lines/Catheters IV [facility] Type (from [facility] PICC Line Urinary Cath still in place: No Assessment/Plan Result Diagram: 02/16/18 0430 02/16/18 0430 Results 24hrs Laboratory Tests Test 02/15/18 12:20 02/16/18 04:30 Random Cortisol 45.5 White Blood Count 13.6 H Red Blood Count 4.05 L Hemoglobin 13.0 Hematocrit 39.0 Mean Corpuscular Volume 96.3 Mean Corpuscular Hemoglobin 32.1 Mean Corpuscular Hemoglobin Concent 33.3 Red Cell Distribution Width 18.0 H Platelet Count 38 L Mean Platelet Volume Immature Granulocytes % 0.800 H Neutrophils % 87.3 H Lymphocytes % 5.1 L Monocytes % 5.6 Eosinophils % 0.8 Basophils % 0.4 Nucleated Red Blood Cells % 0.0 Immature Granulocytes # 0.110 H Neutrophils # 11.8 H Lymphocytes # 0.7 L Monocytes # 0.8 Eosinophils # 0.1 Basophils # 0.1 Nucleated Red Blood Cells # 0.0 Sodium Level 135 Potassium Level 3.6 Chloride Level 94 L Carbon Dioxide Level 30 Anion Gap 11 Blood Urea Nitrogen 19 # Creatinine 1.90 H Est Glomerular Filtrat Rate mL/min Glucose Level 193 Calcium Level 8.9 Phosphorus Level 2.8 Magnesium Level 1.8 Subjective 24 Hr Interval Summary Free Text/Dictation Subjective: Objective: Constitutional: alert, oriented lethargic, chronically ill looking, frail Head: atraumatic, normocephalic Neck: non-tender, supple Respiratory: clear to auscultation Cardiovascular: regular rate and rhythm Gastrointestinal: S/ NT / ND / +BS Extremities: no edema, good radial pulses assessment and PLan: 1. Ongoing Hypotension/shock, likely combination of septic and cardiogenic. -remains on pressor support -on daily midodrine, weaning in process per cardio recs -continue routine abx -albumin with HD 2. Bacteremia-Citrobacter -concern for line sepsis but so far cultures from the line and repeat blood cultures have bee negative -ID following, continue current abx 3. GNR UTI -f/u final ID and sensitivities -ID managing abx 4. ESRD on HD -continue routin HD per renal 5. Cardiomyopathy with severely depressed left ventricular ejection fraction by outside hospital echo 11/2017 revealing ejection fraction of 20%. Now again by echo here at [facility] 20% -cannot tolerate BB, diuresis with HD 6. Atrial fibrillation-also seen on interrogation 02/09 -on digoxin and amiodarone per cardiology -Cannot tolerate anticoagulation 2/2 thrombocytopenia 7. Thrombocytopenia -chronic likely associated with Uremia -no evidence of acute bleeding, monitor 8. R basilar atelectasis likely underlying PNA -abx mgt per ID 9. Positive troponin-minimal in the setting of esrd . -Now trended negative 10. Hypothyroidism. -on synthroid 11. Biventricular ICD with ongoing pacing. - Normal function by interrogation 02/09 12. Debilty -patient very frail -Daughter care for her at home, plan to d/c back home once stable though PT recommends SNF -Nutrition recs noted, shayy teri and dietary supplement added to regimen 12. Generalized Pain -tramadol d/c 2/2 hypotension, on tylenol only ow Dispo: -continue ICU care and try to wean off pressor support -continue routine PT -ICU supportive care CRITICAL CARE TIME: >35 mins Exam/Review of Systems Vital Signs Vitals Vital Signs Date Temp Pulse Resp B/P (MAP) Pulse Ox O2 O2 Flow FiO2 Time Delivery Rate 02/16/18 84 15 102/64 100 4.0 06:45 (77) 02/16/18 Nasal 06:30 Cannula 02/16/18 97.4 04:00 Intake and Output 02/15/18 02/15/18 02/16/18 1414:59 22:59 06:59 IntakeIntake Total 862.51 ml 848.49 ml 502.01 ml OutputOutput Total 0 ml 900 ml BalanceBalance 862.51 ml -51.51 ml 502.01 ml Medications Medications Current Medications Digoxin (Digoxin) 0.125 mg DAILY@1300 PO Last administered on 02/15/18at 12:41; Admin Dose 0.125 MG; Start 02/09/18 at 13:00 Levothyroxine Sodium (Synthroid) 25 mcg BEFORE BREAKFAST PO Last administered on 02/13/18at 06:05; Admin Dose 25 MCG; Start 02/09/18 at 07:00 IV Flush (NS 3 ml) 3 ml PER PROTOCOL IV ; Start 02/08/18 at 16:30 Dextrose (D50w Syringe) 50 ml Q10MIN PRN IV hypoglycemia Last administered on 02/09/18at 23:42; Admin Dose 50 ML; Start 02/08/18 at 16:30 IV Flush (NS 10 ml) 10 ml PRN PRN IV IV PROTOCOL; Start 02/09/18 at 18:00 Phenylephrine HCl 40 mg/Dextrose 250 ml @ 37.5 mls/hr TITRATE IV ; Start 02/09/18 at 22:00 Ondansetron HCl (Zofran Inj) 4 mg Q4H PRN IV NAUSEA AND/OR VOMITING Last administered on 02/15/18 06:33; Admin Dose 4 MG; Start 02/09/18 at 23:00 Dextrose 1,000 ml @ 50 mls/hr Q20H IV Last administered on 02/15/18 19:03; Admin Dose 50 MLS/HR; Start 02/10/18 at 11:00 Norepinephrine 32 mg/Dextrose 250 ml @ 0.47 mls/hr TITRATE IV Last administered on 02/15/18 12:28; Admin Dose 2.77 MLS/HR; Start 02/10/18 at 19:30 Gentamicin Sulfate (Gentamicin Iv Per Pharmacy) GENTAMICIN PER PHARM... NOTE XX ; Start 02/11/18 at 10:00 Gentamicin Sulfate 60 mg/ Sodium Chloride 51.5 ml @ 103 mls/hr AFTER DIALYSIS IVPB Last administered on 02/15/18 19:00; Admin Dose 103 MLS/HR; Start 02/12/18 at 11:00 Amiodarone HCl (Cordarone) 200 mg BID PO Last administered on 02/15/18 20:45; Admin Dose 200 MG; Start 02/11/18 at 13:30 Heparin Sodium (Porcine) (Heparin (1000 Units/ml)) 4,000 unit AFTER DIALYSIS CATHETER Last administered on 02/13/18 14:26; Admin Dose 4,000 UNIT; Start 02/11/18 at 14:00 Lorazepam (Ativan) 1 mg DAILY PRN PO ANXIETY Last administered on 02/15/18 22:21; Admin Dose 1 MG; Start 02/13/18 at 13:00 Pantoprazole (Protonix Tab) 40 mg DAILY@06 PO Last administered on 02/15/18at 12:42; Admin Dose 40 MG; Start 02/15/18 at 11:00 Midodrine (Proamatine) 5 mg DAILY PO ; Start 02/16/18 at 09:00 Acetaminophen (Tylenol Tab) 650 mg Q6H PRN PO MILD PAIN(1-3)OR ELEVATED TEMP; Start 02/15/18 at 16:30 RINA VERMA Feb 16, 2018 08:37
--- NOTE | 2018-02-16 08:47 | PN ---
DATE: 02/16/2018 SUBJECTIVE: The patient remains critically ill. The patient had hemodialysis yesterday, approximate ly 500 mL removed. The patient remains on pressor support. No other events noted. No hemoptysis, h ematemesis, or hematochezia. OBJECTIVE: VITAL SIGNS: Blood pressure is 101/57, respirations 20, pulse 83, temperature 98.6. HEENT: Head is normocephalic. NECK: Supple. HEART: Tachycardic. LUNGS: Show diminished breath sounds at the base. ABDOMEN: Soft, nontender to palpation without rebound or guarding. EXTREMITIES: Negative for clubbing, cyanosis. Positive trace edema. DERMATOLOGIC: No rashes. MUSCULOSKELETAL: No joint effusions. NEUROLOGIC: No change in exam. MEDICATIONS: Reviewed. LABORATORY DATA: Shows white count 13.6, hemoglobin 13.0, platelet count is 38. Sodium 135, potassi um 3.6, chloride 94, BUN 19, creatinine 1.90. ASSESSMENT AND PLAN: 1. End-stage renal disease. The patient had hemodialysis yesterday, tolerated well. Anticipate matt lysis tomorrow. 2. Volume overload, improving. Continue ultrafiltration with hemodialysis if hemodynamically stable . 3. Anemia. Continue to monitor hemoglobin and hematocrit levels. Will give Epogen if needed. 4. Mineral bone disorder, monitor calcium and phosphatase levels. 5. Shock, etiology is septic, questionable cardiogenic. The patient's source is secondary to bacter emia, urinary tract infection. Repeat blood cultures have been negative. Blood cultures from Perm-A -Cath have been negative. Continue to wean off pressor support. Continue antibiotic therapy. Follo w up with infectious disease. 6. Acute encephalopathy. The etiology is toxic metabolic. Continue to monitor. 7. Acute hypoxemic respiratory failure secondary to congestive heart failure, sepsis, pneumonia. Th e patient is clinically on nasal cannula. Continue supplemental oxygen, nebulizers. 8. Atrial fibrillation. Continue current treatment plan. 9. Arrhythmia, status post ICD placement. Continue to monitor. 10. Diabetes with episodes of hypoglycemia. The patient on a dextrose drip. Continue to monitor. 11. Hyponatremia, improved. Continue to monitor. 12. Lactic acid is secondary to septic shock, improving. Continue to trend lactic acid levels. Dictated By: ROYAL VAZQUEZ/MILA Conf#: [id number] DID#: [id number] CC: KEANU CROUCH MD;*End*
[2018-02-16] MEDS ORDERED: MIDODRINE 5 MG TAB PO SCH (09:00)
--- NOTE | 2018-02-16 09:16 | CONS ---
Date/Time of Note Date/Time of Note DATE: 02/16/18 TIME: 09:14 Assessment/Plan Assessment/Plan Assessment/Plan Chest x-ray showing significant cardiomegaly without any overt CHF. Patient is currently on Levophed 15 mics per minute. Assessment recommendations; 1. Patient with history of chronic renal failure and underlying cardiomyopathy admitted for sepsis likely catheter related with gram-negative bacteremia as w ell as UTI. Currently on appropriate antimicrobial regimen. 2. Anemia and severe thrombocytopenia. No overt bleeding noted though. 3. History of cardiac arrhythmia, status post pacemaker placement in the past. Continue current supportive care. Patient responding well to current treatment regimen. Taper off Levophed as tolerated. Result Diagram: 02/16/18 0430 02/16/18 0430 Results 24hrs Laboratory Tests Test 02/15/18 12:20 02/16/18 04:30 Random Cortisol 45.5 White Blood Count 13.6 H Red Blood Count 4.05 L Hemoglobin 13.0 Hematocrit 39.0 Mean Corpuscular Volume 96.3 Mean Corpuscular Hemoglobin 32.1 Mean Corpuscular Hemoglobin Concent 33.3 Red Cell Distribution Width 18.0 H Platelet Count 38 L Mean Platelet Volume Immature Granulocytes % 0.800 H Neutrophils % 87.3 H Lymphocytes % 5.1 L Monocytes % 5.6 Eosinophils % 0.8 Basophils % 0.4 Nucleated Red Blood Cells % 0.0 Immature Granulocytes # 0.110 H Neutrophils # 11.8 H Lymphocytes # 0.7 L Monocytes # 0.8 Eosinophils # 0.1 Basophils # 0.1 Nucleated Red Blood Cells # 0.0 Sodium Level 135 Potassium Level 3.6 Chloride Level 94 L Carbon Dioxide Level 30 Anion Gap 11 Blood Urea Nitrogen 19 # Creatinine 1.90 H Est Glomerular Filtrat Rate mL/min Glucose Level 193 Calcium Level 8.9 Phosphorus Level 2.8 Magnesium Level 1.8 Consultation Date/Type/Reason Admit Date/Time Feb 08, 2018 at 14:49 Initial Consult Date 02/12/18 Type of Consult Pulmonary/critical care Reason for Consultation Patient's condition is improving gradually. Still requiring Levophed for hypotension. Remains awake and alert. Denies any shortness of breath, chest pain, fever or chills. General exam; elderly female, awake and alert. Currently in no distress. H EENT exam; supple neck, positive JVD. No lymphadenopathy. Midline trachea. No thyromegaly. Patient has fair dentition. No neck masses. Chest exam; diminished but clear breath sounds. S1-S2 audible, no murmurs. Pacemaker in left chest wall. Abdomen exam; soft, no organomegaly. Nontender. Bowel sounds audible. Extremity exam; no peripheral edema or clubbing. MINIATURE SET DESIGNER exam; no focal deficit. Requesting Provider: CHASITY MADSEN Exam/Review of Systems Vital Signs Vitals Vital Signs Date Temp Pulse Resp B/P (MAP) Pulse Ox O2 O2 Flow FiO2 Time Delivery Rate 02/16/18 Nasal 4.0 08:39 Cannula 02/16/18 80 15 105/61 95 08:15 (76) 02/16/18 98.0 08:00 Intake and Output 02/15/18 02/15/18 02/16/18 1515:00 23:00 07:00 IntakeIntake Total 903.44 ml 902.24 ml 395.45 ml OutputOutput Total 900 ml BalanceBalance 903.44 ml 2.24 ml 395.45 ml Medications Medications Current Medications Digoxin (Digoxin) 0.125 mg DAILY@1300 PO Last administered on 02/15/18at 12:41; Admin Dose 0.125 MG; Start 02/09/18 at 13:00 Levothyroxine Sodium (Synthroid) 25 mcg BEFORE BREAKFAST PO Last administered on 02/13/18at 06:05; Admin Dose 25 MCG; Start 02/09/18 at 07:00 IV Flush (NS 3 ml) 3 ml PER PROTOCOL IV ; Start 02/08/18 at 16:30 Dextrose (D50w Syringe) 50 ml Q10MIN PRN IV hypoglycemia Last administered on 02/09/18at 23:42; Admin Dose 50 ML; Start 02/08/18 at 16:30 IV Flush (NS 10 ml) 10 ml PRN PRN IV IV PROTOCOL; Start 02/09/18 at 18:00 Phenylephrine HCl 40 mg/Dextrose 250 ml @ 37.5 mls/hr TITRATE IV ; Start 02/09/18 at 22:00 Ondansetron HCl (Zofran Inj) 4 mg Q4H PRN IV NAUSEA AND/OR VOMITING Last administered on 02/15/18 06:33; Admin Dose 4 MG; Start 02/09/18 at 23:00 Dextrose 1,000 ml @ 30 mls/hr Q24H IV Last administered on 02/15/18 19:03; Admin Dose 50 MLS/HR; Start 02/10/18 at 11:00 Norepinephrine 32 mg/Dextrose 250 ml @ 0.47 mls/hr TITRATE IV Last administered on 02/15/18 12:28; Admin Dose 2.77 MLS/HR; Start 02/10/18 at 19:30 Gentamicin Sulfate (Gentamicin Iv Per Pharmacy) GENTAMICIN PER PHARM... NOTE XX ; Start 02/11/18 at 10:00 Gentamicin Sulfate 60 mg/ Sodium Chloride 51.5 ml @ 103 mls/hr AFTER DIALYSIS IVPB Last administered on 02/15/18 19:00; Admin Dose 103 MLS/HR; Start 02/12/18 at 11:00 Amiodarone HCl (Cordarone) 200 mg BID PO Last administered on 02/15/18 20:45; Admin Dose 200 MG; Start 02/11/18 at 13:30 Heparin Sodium (Porcine) (Heparin (1000 Units/ml)) 4,000 unit AFTER DIALYSIS CATHETER Last administered on 02/13/18at 14:26; Admin Dose 4,000 UNIT; Start 02/11/18 at 14:00 Lorazepam (Ativan) 1 mg DAILY PRN PO ANXIETY Last administered on 02/15/18 22:21; Admin Dose 1 MG; Start 02/13/18 at 13:00 Pantoprazole (Protonix Tab) 40 mg DAILY@06 PO Last administered on 02/15/18 12:42; Admin Dose 40 MG; Start 02/15/18 at 11:00 Midodrine (Proamatine) 5 mg DAILY PO ; Start 02/16/18 at 09:00 Acetaminophen (Tylenol Tab) 650 mg Q6H PRN PO MILD PAIN(1-3)OR ELEVATED TEMP; Start 02/15/18 at 16:30 Multivit/Ca Carb/ B Cmplx/FA/Prenat (Ariana-Satinder) 1 tab DAILY PO ; Start 02/16/18 at 09:00 Docusate Sodium (Colace) 100 mg DAILY PO ; Start 02/16/18 at 09:00 DIAN JJ Feb 16, 2018 09:16
[2018-02-16] MEDS: AMIODARONE 200 MG TAB PO SCH ×2 (09:31→20:46)
[2018-02-16] MEDS: MULTIVIT/CA CARB/B CMPLX/FA TAB PO SCH (09:31)
[2018-02-16] MEDS: DOCUSATE SODIUM 100 MG CAP PO SCH (09:31)
[2018-02-16] MEDS: BALSAM PERU/CASTOR OIL 60 GM TUBE TOP SCH (09:32)
--- NOTE | 2018-02-16 10:45 | NUR ---
OT NOTE: Pt is a 72 yo F with PMH of systolic CHF, DMII, ESRD, Afib with PPM who presents with hypoglycemia, sepsis and ARF. Chest imaging shows marked cardiomegaly, ongoing pulmonary vascular congestion, and small L pleural effusion. Pt received in ICU. Precautions: Fall precautions PLOF: Per pt, pt lives with dtr in 3rd floor apartment with elevator access. Pt was independent with ADL's and Ambulatory with 4WW prior to admission. CLOF: RN cleared pt for skilled OT tx. Pt received supine in bed, agreeable to tx, stating 0/10 pain. Phone dry food products mixer used for translation as pt is Hebrew Speaking. Pt appeared confused as pt followed only 50% of verbal commands. Pt Vitals BP read 109/55. Pt demonstrated BUE AROM WFL and MMT of 3/5. Pt required Max Ax2 to perform supine->sit at EOB. Seated at EOB pt required Max support so sit upright as pt tends to fall back. Pt required total A to satnam socks. Seated at EOB pt's BP read 140/129 and pt required Max Ax2 to return to supine in bed. Once back on bed BP read 125/78. Pt performed oral hygiene with Minimal Assistance. Pt left supine in bed with all needs met. RN notified. Pt will benefit from skilled OT tx 1x daily for 3-5x week for ther ex, ther act, self care, and safety awareness. Recommend d/c to SNF pending progress.
--- NOTE | 2018-02-16 11:00 | NUR ---
PT NOTE Therapy day number 2 Subjective Current complaint of pain Pain Scale FACES Pain Intensity 6 (0-10) Patient Stated Goal for Pain Relief 0 (0-10) Pain Level Comment B UE and B LE Pre Treatment Vital Signs Stable Yes - 109/55, 100%O2 sats on O2, 79bpm Exercise Assessment Label Bilat Lower Extremity Exercise Type Active ROM Additional Exercise Comments semi-supine APs, heel slides Exercise Start Time 10:20 Exercise End Time 10:29 Total Exercise Time 9 min (8-127) Transfer Training Start Time 10:29 Supine to Sit Maximum Assist Bed Mobility Sit to Supine Maximum Assist Sitting Tolerance 9 min Additional Mobility Comments maxA x 2 for supine<>sit; modA to maintain static sitting balance Transfer Training End Time 11:00 Total Transfer Training Time 31 min (8-127) Additional Gait Comments TBA Static Sitting Balance Poor plus Dynamic Sitting Balance Poor Safety Judgement Poor Activity Tolerance Poor Equipment Present A pump IV pump Additional Equipment Present ICU lines, O2 via NC Post Treatment Pain Intensity 5 0-10 Variance Documentation SEE PT NOTE Total Treament Time 40 min (8-127) Total Minutes 40 Total Units 3 PT Technical Record Comment PT NOTE S: Pt demonstrated some confusion, communication via phone interpreter and translator with pt responding to interpreter and translator ~75% of the time O: [place] cleared pt for PT session. Pt received in bed, vitals assessed and stable. Pt participated in interventions above. Noted pt with greater confusion this date, following commands via phone interprter 75% of the time. Noted with sitting, pt fatigues easily. BP in sitting ~8 minutes noted at 140/129. Pt returned to semi-supine, BP reassessed at 125/78. Pt left semi-supine, all needs in reach, no signs of distress. RN notified of pt's status. A: Pt demonstrates very low activity tolerance, only able to maintain static sitting at EOB for ~9 mins requiring min-modA to maintain static sitting. Unable to progress to standing due to elevated BP sitting at EOB this date., P: COntinue c PT POC
--- NOTE | 2018-02-16 11:01 | CONS ---
Date/Time of Note Date/Time of Note DATE: 02/16/18 TIME: 11:00 Assessment/Plan Assessment/Plan Hospital Course IMPRESSION: 1. Hypotension/shock, likely combination of septic and cardiogenic.-currently off 2. Cardiomyopathy with severely depressed left ventricular ejection fraction by outside hospital echo 11/2017 revealing ejection fraction of 20%. Now aagin by echo here at [facility] 20% 3. A biventricular ICD with ongoing pacing.- Normal function by interrogation 02/09 4. Atrial fibrillation-also seen on interrogation 02/09 5. End-stage renal disease on hemodialysis. 6. Hyperkalemia. 7. Pancytopenia. 8. Hyponatremia. 9. Coagulopathy. 10. Hypothyroidism. 11.Positive troponin-minimal in the setting of esrd . Now trended negative 12. Bacteremia-GNR 14.UTI Recc: -ICU -continue digoxin -Continue PO amio -HD for volume removal as tolerated -Continue abx's and f/u cx data -would consider wean of midodrine as pure afterload with severe systolic dysfunction Result Diagram: 02/16/18 0430 02/16/18 0430 Results 24hrs Laboratory Tests Test 02/15/18 12:20 02/16/18 04:30 Random Cortisol 45.5 White Blood Count 13.6 H Red Blood Count 4.05 L Hemoglobin 13.0 Hematocrit 39.0 Mean Corpuscular Volume 96.3 Mean Corpuscular Hemoglobin 32.1 Mean Corpuscular Hemoglobin Concent 33.3 Red Cell Distribution Width 18.0 H Platelet Count 38 L Mean Platelet Volume Immature Granulocytes % 0.800 H Neutrophils % 87.3 H Lymphocytes % 5.1 L Monocytes % 5.6 Eosinophils % 0.8 Basophils % 0.4 Nucleated Red Blood Cells % 0.0 Immature Granulocytes # 0.110 H Neutrophils # 11.8 H Lymphocytes # 0.7 L Monocytes # 0.8 Eosinophils # 0.1 Basophils # 0.1 Nucleated Red Blood Cells # 0.0 Sodium Level 135 Potassium Level 3.6 Chloride Level 94 L Carbon Dioxide Level 30 Anion Gap 11 Blood Urea Nitrogen 19 # Creatinine 1.90 H Est Glomerular Filtrat Rate mL/min Glucose Level 193 Calcium Level 8.9 Phosphorus Level 2.8 Magnesium Level 1.8 Consultation Date/Type/Reason Admit Date/Time Feb 08, 2018 at 14:49 Initial Consult Date 02/09/18 Type of Consult cardiology Reason for Consultation hypotension Requesting Provider: CHASITY MADSEN Exam/Review of Systems Vital Signs Vitals Vital Signs Date Temp Pulse Resp B/P (MAP) Pulse Ox O2 O2 Flow FiO2 Time Delivery Rate 02/16/18 81 13 109/55 100 Nasal 4.0 10:30 (73) Cannula 02/16/18 98.0 08:00 Intake and Output 02/15/18 02/15/18 02/16/18 1515:00 23:00 07:00 IntakeIntake Total 903.44 ml 902.24 ml 395.45 ml OutputOutput Total 900 ml BalanceBalance 903.44 ml 2.24 ml 395.45 ml Exam Review of Systems: CONSTITUTIONAL: No fevers, chills. PULMONARY: No sob CARDIOVASCULAR: No chest pain/palpitations GASTROINTESTINAL: No nausea/vomiting. GENITOURINARY: No hematuria/dysuria. MUSCULOSKELETAL: No myagias/arthalgias. PSYCHIATRIC: The patient denies depression. NEUROLOGIC: No weakness Constitutional: alert Psych: no complaints Head: normocephalic Eyes: nl conjunctiva ENMT: mucosa pink and moist Neck: supple, jvd (9 cm water) Respiratory: diminished breath sounds (at bases/B) Cardiovascular: regular rate and rhythm Gastrointestinal: soft, non-tender Musculoskeletal: muscle weakness (generalized) Extremities: edema (none) Neurological: other (No focal deficits) Medications Medications Current Medications Digoxin (Digoxin) 0.125 mg DAILY@1300 PO Last administered on 02/15/18at 12:41; Admin Dose 0.125 MG; Start 02/09/18 at 13:00 Levothyroxine Sodium (Synthroid) 25 mcg BEFORE BREAKFAST PO Last administered on 02/13/18at 06:05; Admin Dose 25 MCG; Start 02/09/18 at 07:00 IV Flush (NS 3 ml) 3 ml PER PROTOCOL IV ; Start 02/08/18 at 16:30 Dextrose (D50w Syringe) 50 ml Q10MIN PRN IV hypoglycemia Last administered on 02/09/18at 23:42; Admin Dose 50 ML; Start 02/08/18 at 16:30 IV Flush (NS 10 ml) 10 ml PRN PRN IV IV PROTOCOL; Start 02/09/18 at 18:00 Phenylephrine HCl 40 mg/Dextrose 250 ml @ 37.5 mls/hr TITRATE IV ; Start 02/09/18 at 22:00 Ondansetron HCl (Zofran Inj) 4 mg Q4H PRN IV NAUSEA AND/OR VOMITING Last administered on 02/15/18 06:33; Admin Dose 4 MG; Start 02/09/18 at 23:00 Dextrose 1,000 ml @ 30 mls/hr Q24H IV Last administered on 02/15/18 19:03; Admin Dose 50 MLS/HR; Start 02/10/18 at 11:00 Norepinephrine 32 mg/Dextrose 250 ml @ 0.47 mls/hr TITRATE IV Last administ ered on 02/15/18 12:28; Admin Dose 2.77 MLS/HR; Start 02/10/18 at 19:30 Gentamicin Sulfate (Gentamicin Iv Per Pharmacy) GENTAMICIN PER PHARM... NOTE XX ; Start 02/11/18 at 10:00 Gentamicin Sulfate 60 mg/ Sodium Chloride 51.5 ml @ 103 mls/hr AFTER DIALYSIS IVPB Last administered on 02/15/18 19:00; Admin Dose 103 MLS/HR; Start 02/12/18 at 11:00 Amiodarone HCl (Cordarone) 200 mg BID PO Last administered on 02/16/18 09:31; Admin Dose 200 MG; Start 02/11/18 at 13:30 Heparin Sodium (Porcine) (Heparin (1000 Units/ml)) 4,000 unit AFTER DIALYSIS CATHETER Last administered on 02/13/18at 14:26; Admin Dose 4,000 UNIT; Start 02/11/18 at 14:00 Lorazepam (Ativan) 1 mg DAILY PRN PO ANXIETY Last administered on 02/15/18 22:21; Admin Dose 1 MG; Start 02/13/18 at 13:00 Pantoprazole (Protonix Tab) 40 mg DAILY@06 PO Last administered on 02/15/18 12:42; Admin Dose 40 MG; Start 02/15/18 at 11:00 Midodrine (Proamatine) 5 mg DAILY PO Last administered on 02/16/18 09:31; Admin Dose 5 MG; Start 02/16/18 at 09:00 Acetaminophen (Tylenol Tab) 650 mg Q6H PRN PO MILD PAIN(1-3)OR ELEVATED TEMP; Start 02/15/18 at 16:30 Multivit/Ca Carb/ B Cmplx/FA/Prenat (Ariana-Satinder) 1 tab DAILY PO Last administered on 02/16/18at 09:31; Admin Dose 1 TAB; Start 02/16/18 at 09:00 Docusate Sodium (Colace) 100 mg DAILY PO Last administered on 02/16/18at 09:31; Admin Dose 100 MG; Start 02/16/18 at 09:00 TI ESPINO Feb 16, 2018 11:01
[2018-02-16] MEDS ORDERED: CYANOCOBALAMIN 1000 MCG INJ IM ONE (12:30)
[2018-02-16] MEDS: DIGOXIN 0.125 MG TAB PO SCH (13:19)
[2018-02-16] MEDS: MIDODRINE 5 MG TAB PO SCH ×2 (13:19→20:47)
[2018-02-16] MEDS: ALBUMIN HUMAN 25% 100 ML IV SCH ×2 (13:20→20:46)
--- NOTE | 2018-02-16 17:02 | CONS ---
Date/Time of Note Date/Time of Note DATE: 02/16/18 TIME: 17:00 Assessment/Plan Assessment/Plan Hospital Course No acute events overnight patient remains lethargic weak she is also pleasantly confused, no fevers overnight temperature 97.5 pulse 80 respirations 11 blood pressure 93/53 on Levophed saturation 96% on 4 L nasal cannula WBC 13.6 H&H 13 and 39 platelets 38 neutrophils 87.3 BUN 19 creatinine 1.9 Microbiology: Blood culture on admission grew Citrobacter, urine culture grew gram-negative rods, repeat blood cultures negative Chest x-ray this morning revealed slight improvement in the right basilar aeration Antimicrobials: Gentamicin Indwelling's: Right chest permacath, PICC line 02/09/18 Physical examination: This is a chronically ill-appearing elderly woman who is lethargic in no distress. Head atraumatic normocephalic sclera nonicteric. Vehicle mucosa dry. Neck is supple chest rise symmetrical breath sounds diminished bases. Heart: S1-S2, irregular. Abdomen soft bowel sounds hypoactive. Extremities cyanotic with trace edema and multiple ecchymosis and bruises Assessment: 1. Severe sepsis with shock, possibly also cardiogenic 2. Gram-negative sheeba bacteremia, likely 2 to UTI 3. Gram-negative rods UTI 4. Status post rapid atrial fibrillation 5. End-stage renal disease, hemodialysis dependent 6. History of CVA and hypertension 7. Pancytopenia Plan: Patient remains hemodynamically unstable, on Levophed drip, repeated blood cultures from permacath negative, continue antibiotics, supportive care, follow recommendations of specialists Result Diagram: 02/16/18 0430 02/16/18 0430 Results 24hrs Laboratory Tests Test 02/16/18 04:30 White Blood Count 13.6 H Red Blood Count 4.05 L Hemoglobin 13.0 Hematocrit 39.0 Mean Corpuscular Volume 96.3 Mean Corpuscular Hemoglobin 32.1 Mean Corpuscular Hemoglobin Concent 33.3 Red Cell Distribution Width 18.0 H Platelet Count 38 L Mean Platelet Volume Immature Granulocytes % 0.800 H Neutrophils % 87.3 H Lymphocytes % 5.1 L Monocytes % 5.6 Eosinophils % 0.8 Basophils % 0.4 Nucleated Red Blood Cells % 0.0 Immature Granulocytes # 0.110 H Neutrophils # 11.8 H Lymphocytes # 0.7 L Monocytes # 0.8 Eosinophils # 0.1 Basophils # 0.1 Nucleated Red Blood Cells # 0.0 Sodium Level 135 Potassium Level 3.6 Chloride Level 94 L Carbon Dioxide Level 30 Anion Gap 11 Blood Urea Nitrogen 19 # Creatinine 1.90 H Est Glomerular Filtrat Rate mL/min Glucose Level 193 Calcium Level 8.9 Phosphorus Level 2.8 Magnesium Level 1.8 Consultation Date/Type/Reason Admit Date/Time Feb 08, 2018 at 14:49 Initial Consult Date Type of Consult id Requesting Provider: CHASITY MADSEN Exam/Review of Systems Vital Signs Vitals Vital Signs Date Temp Pulse Resp B/P (MAP) Pulse Ox O2 O2 Flow FiO2 Time Delivery Rate 02/16/18 80 13 109/51 100 Nasal 4.0 15:30 (70) Cannula 02/16/18 97.8 12:00 Intake and Output 02/15/18 02/15/18 02/16/18 1414:59 22:59 06:59 IntakeIntake Total 862.51 ml 848.49 ml 502.01 ml OutputOutput Total 0 ml 900 ml BalanceBalance 862.51 ml -51.51 ml 502.01 ml Medications Medications Current Medications Digoxin (Digoxin) 0.125 mg DAILY@1300 PO Last administered on 02/16/18at 13:19; Admin Dose 0.125 MG; Start 02/09/18 at 13:00 Levothyroxine Sodium (Synthroid) 25 mcg BEFORE BREAKFAST PO Last administered on 02/13/18at 06:05; Admin Dose 25 MCG; Start 02/09/18 at 07:00 IV Flush (NS 3 ml) 3 ml PER PROTOCOL IV ; Start 02/08/18 at 16:30 Dextrose (D50w Syringe) 50 ml Q10MIN PRN IV hypoglycemia Last administered on 02/09/18at 23:42; Admin Dose 50 ML; Start 02/08/18 at 16:30 IV Flush (NS 10 ml) 10 ml PRN PRN IV IV PROTOCOL; Start 02/09/18 at 18:00 Phenylephrine HCl 40 mg/Dextrose 250 ml @ 37.5 mls/hr TITRATE IV ; Start 02/09/18 at 22:00 Ondansetron HCl (Zofran Inj) 4 mg Q4H PRN IV NAUSEA AND/OR VOMITING Last administered on 02/15/18at 06:33; Admin Dose 4 MG; Start 02/09/18 at 23:00 Dextrose 1,000 ml @ 30 mls/hr Q24H IV Last administered on 02/15/18 19:03; Admin Dose 50 MLS/HR; Start 02/10/18 at 11:00 Norepinephrine 32 mg/Dextrose 250 ml @ 0.47 mls/hr TITRATE IV Last administered on 02/15/18 12:28; Admin Dose 2.77 MLS/HR; Start 02/10/18 at 19:30 Gentamicin Sulfate (Gentamicin Iv Per Pharmacy) GENTAMICIN PER PHARM... NOTE XX ; Start 02/11/18 at 10:00 Gentamicin Sulfate 60 mg/ Sodium Chloride 51.5 ml @ 103 mls/hr AFTER DIALYSIS IVPB Last administered on 02/15/18 19:00; Admin Dose 103 MLS/HR; Start 02/12/18 at 11:00 Amiodarone HCl (Cordarone) 200 mg BID PO Last administered on 02/16/18 09:31; Admin Dose 200 MG; Start 02/11/18 at 13:30 Heparin Sodium (Porcine) (Heparin (1000 Units/ml)) 4,000 unit AFTER DIALYSIS CATHETER Last administered on 02/13/18at 14:26; Admin Dose 4,000 UNIT; Start 02/11/18 at 14:00 Lorazepam (Ativan) 1 mg DAILY PRN PO ANXIETY Last administered on 02/15/18 22:21; Admin Dose 1 MG; Start 02/13/18 at 13:00 Pantoprazole (Protonix Tab) 40 mg DAILY@06 PO Last administered on 02/15/18 12:42; Admin Dose 40 MG; Start 02/15/18 at 11:00 Acetaminophen (Tylenol Tab) 650 mg Q6H PRN PO MILD PAIN(1-3)OR ELEVATED TEMP; Start 02/15/18 at 16:30 Multivit/Ca Carb/ B Cmplx/FA/Prenat (Ariana-Satinder) 1 tab DAILY PO Last administered on 02/16/18 09:31; Admin Dose 1 TAB; Start 02/16/18 at 09:00 Docusate Sodium (Colace) 100 mg DAILY PO Last administered on 02/16/18 09:31; Admin Dose 100 MG; Start 02/16/18 at 09:00 Midodrine (Proamatine) 2.5 mg Q8 PO Last administered on 02/16/18at 13:19; Admin Dose 2.5 MG; Start 02/16/18 at 14:00 Albumin Human 100 ml @ 100 mls/hr Q8H IV Last administered on 02/16/18at 13:20; Admin Dose 100 MLS/HR; Start 02/16/18 at 12:30; Stop 02/17/18 at 05:29 Megestrol Acetate (Megace) 40 mg BID PO ; Start 02/16/18 at 21:00 LINDY MARQUEZ NP Feb 16, 2018 17:02
--- NOTE | 2018-02-16 18:28 | NUR ---
Pt is AO x 2, Thai speaking, moves all extremities, moderate weakness present. Vpaced, on 5 mc of levo. Pt is on 3L NC, 02 Sat 98%. Pt is anuric; very poor appetite, PMD is aware. Family is at bed side, updated regarding plan of care.
[2018-02-16] MEDS: MEGESTROL 40 MG TAB PO SCH (20:46)
[2018-02-16] MEDS: LORAZEPAM 1 MG TAB PO PRN (20:50)
[2018-02-17] VITALS (71 sets, daily range): BP systolic 57–118; BP diastolic 36–93; PULSE 71–86; RESP 8–23
[2018-02-17] MEDS: ALBUMIN HUMAN 25% 100 ML IV SCH (06:24)
[2018-02-17] MEDS: LEVOTHYROXINE 25 MCG TAB PO SCH (06:25)
[2018-02-17] MEDS: MIDODRINE 5 MG TAB PO SCH ×2 (06:25→14:52)
[2018-02-17] MEDS: PANTOPRAZOLE (EC) 40 MG TAB PO SCH (06:25)
--- NOTE | 2018-02-17 06:44 | NUR ---
PT WITH POOR APPETITE GIVEN D 10. [facility] WITH HIGH BLOOD SUGAR REQUESTED A RANDOM GLUCOSE AFTER RECEIVING THE RESULT. FAMILY VERY SUPPORTIVE. WAS HAPPY PT RECEIVED PT YESTERDAY.
[2018-02-17] MEDS: DEXTROSE 10% 1,000 ML IV SCH (08:00)
--- NOTE | 2018-02-17 08:00 | NUR ---
Pt is on HD, will follow up with medications after HD. Pharmacist has been notified regarding anx after HD.
--- NOTE | 2018-02-17 09:19 | NUR ---
PT NOTE Attempted to see pt for PT session in am. Pt currently on HD, RN suggested attempting pt session in late afternoon. Will follow up if time permits.
--- NOTE | 2018-02-17 09:29 | PN ---
Date/Time of Note Date/Time of Note DATE: 02/17/18 TIME: 09:28 Assessment/Plan VTE Prophylaxis Risk score (from Nsg)>0 risk: 11 SCD applied (from Nsg): Yes Pharmacological prophylaxis: other Lines/Catheters IV Catheter Type (from Nrsg): PICC Line Central line still needed: Yes Urinary Cath still in place: No Assessment/Plan Hospital Course SUBJECTIVE: The patient remains on pressor support. The patient had no other acute events noted. No hemoptysis, hematemesis or hematochezia. bp is now stable on a single pressor and ivf d/w ICU nurse and Dr Nicole seen on HD today OBJECTIVE: HEENT: Head is normocephalic. NECK: Supple. HEART: Regular rate. LUNGS: Show diminished breath sounds at the base. ABDOMEN: Soft, nontender to palpation without rebound or guarding. EXTREMITIES: Negative for clubbing, cyanosis, positive edema. DERMATOLOGIC: No rashes. MUSCULOSKELETAL: No joint effusions. NEUROLOGIC: No change in exam. MEDICATIONS: The patient's medications have been reviewed. ASSESSMENT AND PLAN: 1. End-stage renal disease. The patient is scheduled for dialysis today. We will dialyze for 3 hours on a 3K bath, calcium 2.5, ultrafiltrate as tolerated. 2. Volume overload, improving. Continue ultrafiltration with dialysis if the patient remains hemodynamically stable. 3. Anemia. Continue to monitor hemoglobin and hematocrit levels. We will give Epogen as needed. 4. Mineral bone disorder, monitor calcium and phosphorus levels. 5. Septic shock, etiology is secondary to urinary tract infection, bacteremia. The patient is being weaned off pressor support. Continue antibiotic therapy. 6. Acute encephalopathy, etiology is toxic metabolic. Continue to monitor. 7. Acute hypoxemic respiratory failure secondary to congestive heart failure, pneumonia. Continue current antibiotic regimen. Continue supplemental oxygen and monitor. 8. Atrial fibrillation. Continue current treatment plan. 9. Diabetes with episodes of hypoglycemia. Continue current insulin regimen. 10. Hypernatremia, etiology in part due to hypertonic IV fluids. We will continue to monitor closely. If sodium levels do not improve, we will recommend to change fluids. 11. Lactic acidosis secondary to septic shock. The patient's lactic acid lev els have been improving. Continue to monitor. Result Diagram: 02/17/18 0430 02/17/18 0608 Results 24hrs Laboratory Tests Test 02/17/18 04:30 02/17/18 06:08 White Blood Count 10.3 # Red Blood Count 3.57 L Hemoglobin 11.4 L Hematocrit 36.0 L Mean Corpuscular Volume 100.8 Mean Corpuscular Hemoglobin 31.9 Mean Corpuscular Hemoglobin Concent 31.7 L Red Cell Distribution Width 18.8 H Platelet Count 32 L Mean Platelet Volume Immature Granulocytes % 1.100 H Neutrophils % 84.1 H Lymphocytes % 7.2 L Monocytes % 6.5 Eosinophils % 0.8 Basophils % 0.3 Nucleated Red Blood Cells % 0.0 Immature Granulocytes # 0.110 H Neutrophils # 8.6 H Lymphocytes # 0.7 L Monocytes # 0.7 Eosinophils # 0.1 Basophils # 0.0 Nucleated Red Blood Cells # 0.0 Sodium Level 125 L Potassium Level 3.6 Chloride Level 89 L Carbon Dioxide Level 27 Anion Gap 9 Blood Urea Nitrogen 23 H Creatinine 2.03 H Est Glomerular Filtrat Rate mL/min Glucose Level 618 #*H 107 # Lactic Acid Level 1.6 Calcium Level 8.6 Phosphorus Level 3.3 Magnesium Level 1.8 Exam/Review of Systems Vital Signs Vitals Vital Signs Date Temp Pulse Resp B/P (MAP) Pulse Ox O2 O2 Flow FiO2 Time Delivery Rate 02/17/18 80 12 82/55 (64) 100 Nasal 08:15 Cannula 02/17/18 2.0 08:11 02/17/18 97.7 07:45 Intake and Output 02/16/18 02/16/18 02/17/18 1515:00 23:00 07:00 IntakeIntake Total 519 ml 435 ml 271 ml BalanceBalance 519 ml 435 ml 271 ml Medications Medications Current Medications Digoxin (Digoxin) 0.125 mg DAILY@1300 PO Last administered on 02/16/18at 13:19; Admin Dose 0.125 MG; Start 02/09/18 at 13:00 Levothyroxine Sodium (Synthroid) 25 mcg BEFORE BREAKFAST PO Last administered on 02/17/18at 06:25; Admin Dose 25 MCG; Start 02/09/18 at 07:00 IV Flush (NS 3 ml) 3 ml PER PROTOCOL IV ; Start 02/08/18 at 16:30 Dextrose (D50w Syringe) 50 ml Q10MIN PRN IV hypoglycemia Last administered on 02/09/18at 23:42; Admin Dose 50 ML; Start 02/08/18 at 16:30 IV Flush (NS 10 ml) 10 ml PRN PRN IV IV PROTOCOL; Start 02/09/18 at 18:00 Phenylephrine HCl 40 mg/Dextrose 250 ml @ 37.5 mls/hr TITRATE IV ; Start 02/09/18 at 22:00 Ondansetron HCl (Zofran Inj) 4 mg Q4H PRN IV NAUSEA AND/OR VOMITING Last administered on 02/15/18 06:33; Admin Dose 4 MG; Start 02/09/18 at 23:00 Dextrose 1,000 ml @ 30 mls/hr Q24H IV Last administered on 02/17/18 08:00; Admin Dose 30 MLS/HR; Start 02/10/18 at 11:00 Norepinephrine 32 mg/Dextrose 250 ml @ 0.47 mls/hr TITRATE IV Last administered on 02/15/18 12:28; Admin Dose 2.77 MLS/HR; Start 02/10/18 at 19:30 Gentamicin Sulfate (Gentamicin Iv Per Pharmacy) GENTAMICIN PER PHARM... NOTE XX ; Start 02/11/18 at 10:00 Gentamicin Sulfate 60 mg/ Sodium Chloride 51.5 ml @ 103 mls/hr AFTER DIALYSIS IVPB Last administered on 02/15/18 19:00; Admin Dose 103 MLS/HR; Start 02/12/18 at 11:00 Amiodarone HCl (Cordarone) 200 mg BID PO Last administered on 02/16/18 20:46; Admin Dose 200 MG; Start 02/11/18 at 13:30 Heparin Sodium (Porcine) (Heparin (1000 Units/ml)) 4,000 unit AFTER DIALYSIS CATHETER Last administered on 02/13/18at 14:26; Admin Dose 4,000 UNIT; Start 02/11/18 at 14:00 Lorazepam (Ativan) 1 mg DAILY PRN PO ANXIETY Last administered on 02/16/18 20:50; Admin Dose 1 MG; Start 02/13/18 at 13:00 Pantoprazole (Protonix Tab) 40 mg DAILY@06 PO Last administered on 02/17/18 06:25; Admin Dose 40 MG; Start 02/15/18 at 11:00 Acetaminophen (Tylenol Tab) 650 mg Q6H PRN PO MILD PAIN(1-3)OR ELEVATED TEMP; Start 02/15/18 at 16:30 Multivit/Ca Carb/ B Cmplx/FA/Prenat (Ariana-Satinder) 1 tab DAILY PO Last administered on 02/16/18 09:31; Admin Dose 1 TAB; Start 02/16/18 at 09:00 Docusate Sodium (Colace) 100 mg DAILY PO Last administered on 02/16/18 09:31; Admin Dose 100 MG; Start 02/16/18 at 09:00 Midodrine (Proamatine) 2.5 mg Q8 PO Last administered on 02/17/18at 06:25; Admin Dose 2.5 MG; Start 02/16/18 at 14:00 Megestrol Acetate (Megace) 40 mg BID PO Last administered on 02/16/18at 20:46; Admin Dose 40 MG; Start 02/16/18 at 21:00 ROSA PAGE DO Feb 17, 2018 09:29
[2018-02-17] MEDS: BALSAM PERU/CASTOR OIL 60 GM TUBE TOP SCH (09:40)
--- NOTE | 2018-02-17 10:47 | NUR ---
OT NOTE Attempted to see pt for OT session in am. Pt currently on HD, RN suggested attempting pt session in late afternoon. Will follow up if time permits.
[2018-02-17] MEDS: MULTIVIT/CA CARB/B CMPLX/FA TAB PO SCH (11:34)
[2018-02-17] MEDS: DOCUSATE SODIUM 100 MG CAP PO SCH (11:35)
[2018-02-17] MEDS: MEGESTROL 40 MG TAB PO SCH (11:35)
[2018-02-17] MEDS: AMIODARONE 200 MG TAB PO SCH (11:36)
--- NOTE | 2018-02-17 12:22 | CONS ---
Date/Time of Note Date/Time of Note DATE: 02/17/18 TIME: 12:21 Consult Date/Type/Reason Admit Date/Time Feb 08, 2018 at 14:49 Initial Consult Date 02/12/18 Type of Consultation: Pulmonary ICU Requesting Provider: CHASITY MADSEN Subjective No events. still on pressors Continues HD. Objective Vital Signs Date Temp Pulse Resp B/P (MAP) Pulse Ox O2 O2 Flow FiO2 Time Delivery Rate 02/17/18 80 13 86/63 (71) 99 Nasal 11:30 Cannula 02/17/18 2.0 08:11 02/17/18 97.7 07:45 Intake and Output 02/16/18 02/16/18 02/17/18 1515:00 23:00 07:00 IntakeIntake Total 519 ml 435 ml 271 ml BalanceBalance 519 ml 435 ml 271 ml Exam GENERAL: Chronically ill-appearing lady comfortable at rest no acute distress VITAL SIGNS: per chart NECK: Supple. No JVD or lymphadenopathy. CARDIAC EXAM: S1, S2. No added sounds or murmurs. CHEST: Diminished air entry bilaterally with few rales ABDOMEN: Soft, nontender. No guarding or rebound. EXTREMITIES: No cyanosis, clubbing or edema. NEUROLOGIC: Generalized weakness. No focal deficits. Results/Medications Result Diagram: 02/17/18 0430 02/17/18 0608 Results 24 hrs Laboratory Tests Test 02/17/18 04:30 02/17/18 06:08 White Blood Count 10.3 # Red Blood Count 3.57 L Hemoglobin 11.4 L Hematocrit 36.0 L Mean Corpuscular Volume 100.8 Mean Corpuscular Hemoglobin 31.9 Mean Corpuscular Hemoglobin Concent 31.7 L Red Cell Distribution Width 18.8 H Platelet Count 32 L Mean Platelet Volume Immature Granulocytes % 1.100 H Neutrophils % 84.1 H Lymphocytes % 7.2 L Monocytes % 6.5 Eosinophils % 0.8 Basophils % 0.3 Nucleated Red Blood Cells % 0.0 Immature Granulocytes # 0.110 H Neutrophils # 8.6 H Lymphocytes # 0.7 L Monocytes # 0.7 Eosinophils # 0.1 Basophils # 0.0 Nucleated Red Blood Cells # 0.0 Sodium Level 125 L Potassium Level 3.6 Chloride Level 89 L Carbon Dioxide Level 27 Anion Gap 9 Blood Urea Nitrogen 23 H Creatinine 2.03 H Est Glomerular Filtrat Rate mL/min Glucose Level 618 #*H 107 # Lactic Acid Level 1.6 Calcium Level 8.6 Phosphorus Level 3.3 Magnesium Level 1.8 Medications Current Medications Digoxin (Digoxin) 0.125 mg DAILY@1300 PO Last administered on 02/16/18 13:19; Admin Dose 0.125 MG; Start 02/09/18 at 13:00 Levothyroxine Sodium (Synthroid) 25 mcg BEFORE BREAKFAST PO Last administered on 02/17/18 06:25; Admin Dose 25 MCG; Start 02/09/18 at 07:00 IV Flush (NS 3 ml) 3 ml PER PROTOCOL IV ; Start 02/08/18 at 16:30 Dextrose (D50w Syringe) 50 ml Q10MIN PRN IV hypoglycemia Last administered on 02/09/18at 23:42; Admin Dose 50 ML; Start 02/08/18 at 16:30 IV Flush (NS 10 ml) 10 ml PRN PRN IV IV PROTOCOL; Start 02/09/18 at 18:00 Phenylephrine HCl 40 mg/Dextrose 250 ml @ 37.5 mls/hr TITRATE IV ; Start 02/09/18 at 22:00 Ondansetron HCl (Zofran Inj) 4 mg Q4H PRN IV NAUSEA AND/OR VOMITING Last administered on 02/15/18 06:33; Admin Dose 4 MG; Start 02/09/18 at 23:00 Dextrose 1,000 ml @ 30 mls/hr Q24H IV Last administered on 02/17/18 08:00; Admin Dose 30 MLS/HR; Start 02/10/18 at 11:00 Norepinephrine 32 mg/Dextrose 250 ml @ 0.47 mls/hr TITRATE IV Last administered on 02/15/18 12:28; Admin Dose 2.77 MLS/HR; Start 02/10/18 at 19:30 Gentamicin Sulfate (Gentamicin Iv Per Pharmacy) GENTAMICIN PER PHARM... NOTE XX ; Start 02/11/18 at 10:00 Gentamicin Sulfate 60 mg/ Sodium Chloride 51.5 ml @ 103 mls/hr AFTER DIALYSIS IVPB Last administered on 02/15/18 19:00; Admin Dose 103 MLS/HR; Start 02/12/18 at 11:00 Amiodarone HCl (Cordarone) 200 mg BID PO Last administered on 02/17/18 11:36; Admin Dose 200 MG; Start 02/11/18 at 13:30 Heparin Sodium (Porcine) (Heparin (1000 Units/ml)) 4,000 unit AFTER DIALYSIS CATHETER Last administered on 02/13/18 14:26; Admin Dose 4,000 UNIT; Start 1 at 14:00 Lorazepam (Ativan) 1 mg DAILY PRN PO ANXIETY Last administered on 02/16/18 20:50; Admin Dose 1 MG; Start 02/13/18 at 13:00 Pantoprazole (Protonix Tab) 40 mg DAILY@06 PO Last administered on 02/17/18 06:25; Admin Dose 40 MG; Start 02/15/18 at 11:00 Acetaminophen (Tylenol Tab) 650 mg Q6H PRN PO MILD PAIN(1-3)OR ELEVATED TEMP; Start 02/15/18 at 16:30 Multivit/Ca Carb/ B Cmplx/FA/Prenat (Ariana-Satinder) 1 tab DAILY PO Last administered on 02/17/18 11:34; Admin Dose 1 TAB; Start 02/16/18 at 09:00 Docusate Sodium (Colace) 100 mg DAILY PO Last administered on 02/17/18 11:35; Admin Dose 100 MG; Start 02/16/18 at 09:00 Midodrine (Proamatine) 2.5 mg Q8 PO Last administered on 02/17/18 06:25; Admin Dose 2.5 MG; Start 02/16/18 at 14:00 Megestrol Acetate (Megace) 40 mg BID PO Last administered on 02/17/18 11:35; Admin Dose 40 MG; Start 02/16/18 at 21:00 Assessment/Plan Chief Complaint/Hosp Course IMP: 1. Status post shock--likely distributive in nature due to sepsis. 2. Cardiomyopathy 3. Bacteremia--r/o catheter-related infection 4. Afib 5. CKD--on HD 6. Hypoglycemia 7. Anemia RECS: 1. IV abx per ID 2. Aspiration precautions. 3. Titrate levophed gtt targeting MAP 55-60 mm Hg 4. [place] cortisol WNL. 5. Am labs 6. Hemodialysis as tolerated Critical care time 40 minutes. Discussed with staff. MICHELINE KUHN MD, [facility] Feb 17, 2018 12:22
--- NOTE | 2018-02-17 12:33 | CONS ---
Date/Time of Note Date/Time of Note DATE: 02/17/18 TIME: 12:31 Assessment/Plan Assessment/Plan Hospital Course No acute events overnight patient is status post hemodialysis this morning she is still on Levophed drip awake in no distress afebrile WBC 10.8 H&H 11.4 and 36 platelets 32 Microbiology: Blood culture on admission grew Citrobacter, urine culture grew gram-negative rods, repeat blood cultures negative Chest x-ray 02/16/18 revealed slight improvement in the right basilar aeration Antimicrobials: Gentamicin Indwelling's: Right chest permacath, PICC line 02/09/18 Physical examination: This is a chronically ill-appearing elderly woman who is lethargic in no distress. Head atraumatic normocephalic sclera nonicteric. Vehicle mucosa dry. Neck is supple chest rise symmetrical breath sounds diminished bases. Heart: S1-S2, irregular. Abdomen soft bowel sounds hypoactive. Extremities cyanotic with trace edema and multiple ecchymosis and bruises. Skin: Severe anasarca Assessment: 1. Severe sepsis with shock, possibly also cardiogenic 2. Gram-negative sheeba bacteremia, likely 2 to UTI 3. Gram-negative rods UTI 4. Status post rapid atrial fibrillation 5. End-stage renal disease, hemodialysis dependent 6. History of CVA and hypertension 7. Pancytopenia Plan: Patient remains hemodynamically unstable, requires levo fed drip for blood pressure support with increased requirement post hemodialysis, WBC trending down, repeat blood cultures negative, continue on current antibiotics, follow r ecommendations of specialists Result Diagram: 02/17/18 0430 02/17/18 0608 Results 24hrs Laboratory Tests Test 02/17/18 04:30 02/17/18 06:08 White Blood Count 10.3 # Red Blood Count 3.57 L Hemoglobin 11.4 L Hematocrit 36.0 L Mean Corpuscular Volume 100.8 Mean Corpuscular Hemoglobin 31.9 Mean Corpuscular Hemoglobin Concent 31.7 L Red Cell Distribution Width 18.8 H Platelet Count 32 L Mean Platelet Volume Immature Granulocytes % 1.100 H Neutrophils % 84.1 H Lymphocytes % 7.2 L Monocytes % 6.5 Eosinophils % 0.8 Basophils % 0.3 Nucleated Red Blood Cells % 0.0 Immature Granulocytes # 0.110 H Neutrophils # 8.6 H Lymphocytes # 0.7 L Monocytes # 0.7 Eosinophils # 0.1 Basophils # 0.0 Nucleated Red Blood Cells # 0.0 Sodium Level 125 L Potassium Level 3.6 Chloride Level 89 L Carbon Dioxide Level 27 Anion Gap 9 Blood Urea Nitrogen 23 H Creatinine 2.03 H Est Glomerular Filtrat Rate mL/min Glucose Level 618 #*H 107 # Lactic Acid Level 1.6 Calcium Level 8.6 Phosphorus Level 3.3 Magnesium Level 1.8 Consultation Date/Type/Reason Admit Date/Time Feb 08, 2018 at 14:49 Initial Consult Date Type of Consult id Requesting Provider: CHASITY MADSEN Exam/Review of Systems Vital Signs Vitals Vital Signs Date Temp Pulse Resp B/P (MAP) Pulse Ox O2 O2 Flow FiO2 Time Delivery Rate 02/17/18 80 13 86/63 (71) 99 Nasal 11:30 Cannula 02/17/18 2.0 08:11 02/17/18 97.7 07:45 Intake and Output 02/16/18 02/16/18 02/17/18 1515:00 23:00 07:00 IntakeIntake Total 519 ml 435 ml 271 ml BalanceBalance 519 ml 435 ml 271 ml Medications Medications Current Medications Digoxin (Digoxin) 0.125 mg DAILY@1300 PO Last administered on 02/16/18 13:19; Admin Dose 0.125 MG; Start 02/09/18 at 13:00 Levothyroxine Sodium (Synthroid) 25 mcg BEFORE BREAKFAST PO Last administered on 02/17/18 06:25; Admin Dose 25 MCG; Start 02/09/18 at 07:00 IV Flush (NS 3 ml) 3 ml PER PROTOCOL IV ; Start 02/08/18 at 16:30 Dextrose (D50w Syringe) 50 ml Q10MIN PRN IV hypoglycemia Last administered on 02/09/18at 23:42; Admin Dose 50 ML; Start 02/08/18 at 16:30 IV Flush (NS 10 ml) 10 ml PRN PRN IV IV PROTOCOL; Start 02/09/18 at 18:00 Phenylephrine HCl 40 mg/Dextrose 250 ml @ 37.5 mls/hr TITRATE IV ; Start 02/09/18 at 22:00 Ondansetron HCl (Zofran Inj) 4 mg Q4H PRN IV NAUSEA AND/OR VOMITING Last administered on 02/15/18 06:33; Admin Dose 4 MG; Start 02/09/18 at 23:00 Dextrose 1,000 ml @ 30 mls/hr Q24H IV Last administered on 02/17/18 08:00; Admin Dose 30 MLS/HR; Start 02/10/18 at 11:00 Norepinephrine 32 mg/Dextrose 250 ml @ 0.47 mls/hr TITRATE IV Last administered on 02/15/18 12:28; Admin Dose 2.77 MLS/HR; Start 02/10/18 at 19:30 Gentamicin Sulfate (Gentamicin Iv Per Pharmacy) GENTAMICIN PER PHARM... NOTE XX ; Start 02/11/18 at 10:00 Gentamicin Sulfate 60 mg/ Sodium Chloride 51.5 ml @ 103 mls/hr AFTER DIALYSIS IVPB Last administered on 02/15/18 19:00; Admin Dose 103 MLS/HR; Start 02/12/18 at 11:00 Amiodarone HCl (Cordarone) 200 mg BID PO Last administered on 02/17/18 11:36; Admin Dose 200 MG; Start 02/11/18 at 13:30 Heparin Sodium (Porcine) (Heparin (1000 Units/ml)) 4,000 unit AFTER DIALYSIS CATHETER Last administered on 02/13/18at 14:26; Admin Dose 4,000 UNIT; Start 02/11/18 at 14:00 Lorazepam (Ativan) 1 mg DAILY PRN PO ANXIETY Last administered on 02/16/18 20:50; Admin Dose 1 MG; Start 02/13/18 at 13:00 Pantoprazole (Protonix Tab) 40 mg DAILY@06 PO Last administered on 02/17/18 06:25; Admin Dose 40 MG; Start 02/15/18 at 11:00 Acetaminophen (Tylenol Tab) 650 mg Q6H PRN PO MILD PAIN(1-3)OR ELEVATED TEMP; Start 02/15/18 at 16:30 Multivit/Ca Carb/ B Cmplx/FA/Prenat (Ariana-Satinder) 1 tab DAILY PO Last administer ed on 02/17/18 11:34; Admin Dose 1 TAB; Start 02/16/18 at 09:00 Docusate Sodium (Colace) 100 mg DAILY PO Last administered on 02/17/18 11:35; Admin Dose 100 MG; Start 02/16/18 at 09:00 Midodrine (Proamatine) 2.5 mg Q8 PO Last administered on 02/17/18at 06:25; Admin Dose 2.5 MG; Start 02/16/18 at 14:00 Megestrol Acetate (Megace) 40 mg BID PO Last administered on 02/17/18at 11:35; Admin Dose 40 MG; Start 02/16/18 at 21:00 LINDY MARQUEZ NP Feb 17, 2018 12:33
--- NOTE | 2018-02-17 14:05 | CONS ---
Date/Time of Note Date/Time of Note DATE: 02/17/18 TIME: 14:01 Assessment/Plan Assessment/Plan Hospital Course IMPRESSION: 1. Hypotension/shock, likely combination of septic and cardiogenic.-currently off 2. Cardiomyopathy with severely depressed left ventricular ejection fraction by outside hospital echo 11/2017 revealing ejection fraction of 20%. Now again by echo here at [facility] 20% 3. A biventricular ICD with ongoing pacing.- Normal function by interrogation 02/09 4. Atrial fibrillation-also seen on interrogation 02/09 5. End-stage renal disease on hemodialysis. 6. Hyperkalemia. 7. Pancytopenia. 8. Hyponatremia. 9. Coagulopathy. 10. Hypothyroidism. 11.Positive troponin-minimal in the setting of esrd . Now trended negative 12. Bacteremia-GNR 14.UTI Recc: -ICU -continue digoxin -Continue PO amio -HD for volume removal as tolerated -Continue abx's and f/u cx data -would consider wean of midodrine as pure afterload with severe systolic dysfunction but will follow for today -check digoxin level -check PT/INR -Not on systemic anticoag/asa due to thromobocytopenia Result Diagram: 02/17/18 0430 02/17/18 0608 Results 24hrs Laboratory Tests Test 02/17/18 04:30 02/17/18 06:08 White Blood Count 10.3 # Red Blood Count 3.57 L Hemoglobin 11.4 L Hematocrit 36.0 L Mean Corpuscular Volume 100.8 Mean Corpuscular Hemoglobin 31.9 Mean Corpuscular Hemoglobin Concent 31.7 L Red Cell Distribution Width 18.8 H Platelet Count 32 L Mean Platelet Volume Immature Granulocytes % 1.100 H Neutrophils % 84.1 H Lymphocytes % 7.2 L Monocytes % 6.5 Eosinophils % 0.8 Basophils % 0.3 Nucleated Red Blood Cells % 0.0 Immature Granulocytes # 0.110 H Neutrophils # 8.6 H Lymphocytes # 0.7 L Monocytes # 0.7 Eosinophils # 0.1 Basophils # 0.0 Nucleated Red Blood Cells # 0.0 Sodium Level 125 L Potassium Level 3.6 Chloride Level 89 L Carbon Dioxide Level 27 Anion Gap 9 Blood Urea Nitrogen 23 H Creatinine 2.03 H Est Glomerular Filtrat Rate mL/min Glucose Level 618 #*H 107 # Lactic Acid Level 1.6 Calcium Level 8.6 Phosphorus Level 3.3 Magnesium Level 1.8 Consultation Date/Type/Reason Admit Date/Time Feb 08, 2018 at 14:49 Initial Consult Date 02/09/18 Type of Consult cardiology Reason for Consultation hypotension Requesting Provider: CHASITY MADSEN Exam/Review of Systems Vital Signs Vitals Vital Signs Date Temp Pulse Resp B/P (MAP) Pulse Ox O2 O2 Flow FiO2 Time Delivery Rate 02/17/18 80 13 86/63 (71) 99 Nasal 11:30 Cannula 02/17/18 2.0 08:11 02/17/18 97.7 07:45 Intake and Output 02/16/18 02/16/18 02/17/18 1515:00 23:00 07:00 IntakeIntake Total 519 ml 435 ml 271 ml BalanceBalance 519 ml 435 ml 271 ml Exam Review of Systems: CONSTITUTIONAL: No fevers, chills. PULMONARY: No sob CARDIOVASCULAR: No chest pain/palpitations GASTROINTESTINAL: No nausea/vomiting. GENITOURINARY: No hematuria/dysuria. MUSCULOSKELETAL: No myagias/arthalgias. PSYCHIATRIC: The patient denies depression. NEUROLOGIC: lethargic Constitutional: alert, oriented Psych: no complaints Head: normocephalic ENMT: mucosa pink and moist Neck: supple, jvd Respiratory: diminished breath sounds Cardiovascular: regular rate and rhythm Gastrointestinal: soft, non-tender Musculoskeletal: muscle tone Extremities: edema (none) Neurological: other (No focal deficits) Medications Medications Current Medications Digoxin (Digoxin) 0.125 mg DAILY@1300 PO Last administered on 02/16/18at 13:19; Admin Dose 0.125 MG; Start 02/09/18 at 13:00 Levothyroxine Sodium (Synthroid) 25 mcg BEFORE BREAKFAST PO Last administered on 02/17/18at 06:25; Admin Dose 25 MCG; Start 02/09/18 at 07:00 IV Flush (NS 3 ml) 3 ml PER PROTOCOL IV ; Start 02/08/18 at 16:30 Dextrose (D50w Syringe) 50 ml Q10MIN PRN IV hypoglycemia Last administered on 02/09/18at 23:42; Admin Dose 50 ML; Start 02/08/18 at 16:30 IV Flush (NS 10 ml) 10 ml PRN PRN IV IV PROTOCOL; Start 02/09/18 at 18:00 Phenylephrine HCl 40 mg/Dextrose 250 ml @ 37.5 mls/hr TITRATE IV ; Start 02/09/18 at 22:00 Ondansetron HCl (Zofran Inj) 4 mg Q4H PRN IV NAUSEA AND/OR VOMITING Last administered on 02/15/18 06:33; Admin Dose 4 MG; Start 02/09/18 at 23:00 Norepinephrine 32 mg/Dextrose 250 ml @ 0.47 mls/hr TITRATE IV Last admi nistered on 02/15/18 12:28; Admin Dose 2.77 MLS/HR; Start 02/10/18 at 19:30 Gentamicin Sulfate (Gentamicin Iv Per Pharmacy) GENTAMICIN PER PHARM... NOTE XX ; Start 02/11/18 at 10:00 Gentamicin Sulfate 60 mg/ Sodium Chloride 51.5 ml @ 103 mls/hr AFTER DIALYSIS IVPB Last administered on 02/15/18 19:00; Admin Dose 103 MLS/HR; Start 02/12/18 at 11:00 Amiodarone HCl (Cordarone) 200 mg BID PO Last administered on 02/17/18 11:36; Admin Dose 200 MG; Start 02/11/18 at 13:30 Heparin Sodium (Porcine) (Heparin (1000 Units/ml)) 4,000 unit AFTER DIALYSIS CATHETER Last administered on 02/13/18 14:26; Admin Dose 4,000 UNIT; Start 02/11/18 at 14:00 Lorazepam (Ativan) 1 mg DAILY PRN PO ANXIETY Last administered on 02/16/18 20:50; Admin Dose 1 MG; Start 02/13/18 at 13:00 Pantoprazole (Protonix Tab) 40 mg DAILY@06 PO Last administered on 02/17/18 06:25; Admin Dose 40 MG; Start 02/15/18 at 11:00 Acetaminophen (Tylenol Tab) 650 mg Q6H PRN PO MILD PAIN(1-3)OR ELEVATED TEMP; Start 02/15/18 at 16:30 Multivit/Ca Carb/ B Cmplx/FA/Prenat (Ariana-Satinder) 1 tab DAILY PO Last administered on 02/17/18 11:34; Admin Dose 1 TAB; Start 02/16/18 at 09:00 Docusate Sodium (Colace) 100 mg DAILY PO Last administered on 02/17/18 11:35; Admin Dose 100 MG; Start 02/16/18 at 09:00 Midodrine (Proamatine) 2.5 mg Q8 PO Last administered on 02/17/18at 06:25; Admin Dose 2.5 MG; Start 02/16/18 at 14:00 Megestrol Acetate (Megace) 40 mg BID PO Last administered on 02/17/18at 11:35; Admin Dose 40 MG; Start 02/16/18 at 21:00 TI ESPINO Feb 17, 2018 14:05
--- NOTE | 2018-02-17 14:22 | PN ---
Date/Time of Note Date/Time of Note DATE: 02/17/18 TIME: 14:18 Assessment/Plan VTE Prophylaxis Risk score (from Nsg)>0 risk: 11 SCD applied (from Nsg): Yes Pharmacological prophylaxis: heparin Lines/Catheters IV Catheter Type (from Nrsg): PICC Line Central line still needed: Yes Urinary Cath still in place: No Assessment/Plan Hospital Course 72 yo female with systolic CHF, DMII, ESRD, A Fib w PPM who presents with hypoglycemia, sepsis, and acute respiratory failure. Currently still requiring vasopressors to maintain MAP for unclear reasons, perhaps has baseline hypotension. Patient remains in shock after 1 week of aggressive treatment. Patient herself is unable to participate in goals of care discussions given encephelopathy. Her daughte (next of kin and POA) requests for comfort measures to begin tonight after she can come in to the hospital - Comfort measures beginning this evening after daughter gets off of work - Continue vasopressors and IV abx until this evening then dc them Result Diagram: 02/17/18 0430 02/17/18 0608 Results 24hrs Laboratory Tests Test 02/17/18 04:30 02/17/18 06:08 White Blood Count 10.3 # Red Blood Count 3.57 L Hemoglobin 11.4 L Hematocrit 36.0 L Mean Corpuscular Volume 100.8 Mean Corpuscular Hemoglobin 31.9 Mean Corpuscular Hemoglobin Concent 31.7 L Red Cell Distribution Width 18.8 H Platelet Count 32 L Mean Platelet Volume Immature Granulocytes % 1.100 H Neutrophils % 84.1 H Lymphocytes % 7.2 L Monocytes % 6.5 Eosinophils % 0.8 Basophils % 0.3 Nucleated Red Blood Cells % 0.0 Immature Granulocytes # 0.110 H Neutrophils # 8.6 H Lymphocytes # 0.7 L Monocytes # 0.7 Eosinophils # 0.1 Basophils # 0.0 Nucleated Red Blood Cells # 0.0 Sodium Level 125 L Potassium Level 3.6 Chloride Level 89 L Carbon Dioxide Level 27 Anion Gap 9 Blood Urea Nitrogen 23 H Creatinine 2.03 H Est Glomerular Filtrat Rate mL/min Glucose Level 618 #*H 107 # Lactic Acid Level 1.6 Calcium Level 8.6 Phosphorus Level 3.3 Magnesium Level 1.8 Subjective 24 Hr Interval Summary Free Text/Dictation I spoke to the patient's daughter and discussed case. Patient not able to come off of pressors. Patient also increasingly encephelopathic and is unable to participate in conversations. Daughter agrees that comfort care is the correct option and will come in later tonight when she gets off of work at 7 PM. At that point we will dc pressors and start comfort measures Exam/Review of Systems Vital Signs Vitals Vital Signs Date Temp Pulse Resp B/P (MAP) Pulse Ox O2 O2 Flow FiO2 Time Delivery Rate 02/17/18 80 13 86/63 (71) 99 Nasal 11:30 Cannula 02/17/18 2.0 08:11 02/17/18 97.7 07:45 Intake and Output 02/16/18 02/16/18 02/17/18 1515:00 23:00 07:00 IntakeIntake Total 519 ml 435 ml 271 ml BalanceBalance 519 ml 435 ml 271 ml Medications Medications Current Medications Digoxin (Digoxin) 0.125 mg DAILY@1300 PO Last administered on 02/16/18 13:19; Admin Dose 0.125 MG; Start 02/09/18 at 13:00 Levothyroxine Sodium (Synthroid) 25 mcg BEFORE BREAKFAST PO Last administered on 02/17/18 06:25; Admin Dose 25 MCG; Start 02/09/18 at 07:00 IV Flush (NS 3 ml) 3 ml PER PROTOCOL IV ; Start 02/08/18 at 16:30 Dextrose (D50w Syringe) 50 ml Q10MIN PRN IV hypoglycemia Last administered on 02/09/18at 23:42; Admin Dose 50 ML; Start 02/08/18 at 16:30 IV Flush (NS 10 ml) 10 ml PRN PRN IV IV PROTOCOL; Start 02/09/18 at 18:00 Phenylephrine HCl 40 mg/Dextrose 250 ml @ 37.5 mls/hr TITRATE IV ; Start 02/09/18 at 22:00 Ondansetron HCl (Zofran Inj) 4 mg Q4H PRN IV NAUSEA AND/OR VOMITING Last administered on 02/15/18 06:33; Admin Dose 4 MG; Start 02/09/18 at 23:00 Norepinephrine 32 mg/Dextrose 250 ml @ 0.47 mls/hr TITRATE IV Last administered on 02/15/18 12:28; Admin Dose 2.77 MLS/HR; Start 02/10/18 at 19:30 Gentamicin Sulfate (Gentamicin Iv Per Pharmacy) GENTAMICIN PER PHARM... NOTE XX ; Start 02/11/18 at 10:00 Gentamicin Sulfate 60 mg/ Sodium Chloride 51.5 ml @ 103 mls/hr AFTER DIALYSIS IVPB Last administered on 02/15/18 19:00; Admin Dose 103 MLS/HR; Start 02/12/18 at 11:00 Amiodarone HCl (Cordarone) 200 mg BID PO Last administered on 02/17/18 11:36; Admin Dose 200 MG; Start 02/11/18 at 13:30 Heparin Sodium (Porcine) (Heparin (1000 Units/ml)) 4,000 unit AFTER DIALYSIS CATHETER Last administered on 02/13/18 14:26; Admin Dose 4,000 UNIT; Start 02/11/18 at 14:00 Lorazepam (Ativan) 1 mg DAILY PRN PO ANXIETY Last administered on 02/16/18 20:50; Admin Dose 1 MG; Start 02/13/18 at 13:00 Pantoprazole (Protonix Tab) 40 mg DAILY@06 PO Last administered on 02/17/18 06:25; Admin Dose 40 MG; Start 02/15/18 at 11:00 Acetaminophen (Tylenol Tab) 650 mg Q6H PRN PO MILD PAIN(1-3)OR ELEVATED TEMP; Start 02/15/18 at 16:30 Multivit/Ca Carb/ B Cmplx/FA/Prenat (Ariana-Satinder) 1 tab DAILY PO Last administered on 02/17/18 11:34; Admin Dose 1 TAB; Start 02/16/18 at 09:00 Docusate Sodium (Colace) 100 mg DAILY PO Last administered on 02/17/18 11:35; Admin Dose 100 MG; Start 02/16/18 at 09:00 Midodrine (Proamatine) 2.5 mg Q8 PO Last administered on 02/17/18 06:25; Admin Dose 2.5 MG; Start 02/16/18 at 14:00 Megestrol Acetate (Megace) 40 mg BID PO Last administered on 02/17/18 11:35; Admin Dose 40 MG; Start 02/16/18 at 21:00 KEANU CROUCH MD Feb 17, 2018 14:22
[2018-02-17] MEDS: GENTAMICIN 60 MG in SOD CHLORIDE 0.9% 50 ML IVPB SCH (14:51)
[2018-02-17] MEDS: DIGOXIN 0.125 MG TAB PO SCH (14:52)
[2018-02-17] MEDS: NORepinephrine 32 MG in DEXTROSE 5% 218 ML IV SCH (17:00)
--- NOTE | 2018-02-17 18:18 | NUR ---
Dr West is consulted. The possible plan for hospice is discussed with family: daughter, granddaughters, nieces and other relatives. Family is updated regarding possible prognosis, diagnosis by PMD. NG tube placement and ptt blood draws on hold by Dr Shepherd.
--- NOTE | 2018-02-17 18:36 | CONS ---
Date/Time of Note Date/Time of Note DATE: 02/17/18 TIME: 18:34 Assessment/Plan Assessment/Plan Assessment/Plan Long discussion with patient's daughter. Patient was on hospice care prior to hospitalization. It was unclear why patient was transferred to the hospital unless hospice cannot controlled her symptoms. Patient was counseled as an outpatient to change patient's CODE STATUS to DO NOT RESUSCITATE and allow her to comfortable dignified end-of-life on hospice care. She was also spoken with by Dr. Hodges who gave family members prognosis which was grave and the patient was probably not survive. If she does 5 she would have recurrent hospitalizations for congestive heart failure pneumonia urinary tract infections or such until patient would eventually and possibly a morbid . Patient's daughter had made her mind up prior to his hospitalization not to pursue an aggressive level of care. She is in the [employer] and she understands her mother was suffering. At this time she is made a decision to discontinue any further aggressive intervention including hemodialysis. We will slowly withdraw care will only give as needed doses of comfort medications not continuous dose of morphine drip. Follow her course throughout the night make sure that she is comfortable I discussed this in detail with patient's critical care nurse. Result Diagram: 02/17/18 0430 02/17/18 0608 Results 24hrs Laboratory Tests Test 02/17/18 04:30 02/17/18 06:08 White Blood Count 10.3 # Red Blood Count 3.57 L Hemoglobin 11.4 L Hematocrit 36.0 L Mean Corpuscular Volume 100.8 Mean Corpuscular Hemoglobin 31.9 Mean Corpuscular Hemoglobin Concent 31.7 L Red Cell Distribution Width 18.8 H Platelet Count 32 L Mean Platelet Volume Immature Granulocytes % 1.100 H Neutrophils % 84.1 H Lymphocytes % 7.2 L Monocytes % 6.5 Eosinophils % 0.8 Basophils % 0.3 Nucleated Red Blood Cells % 0.0 Immature Granulocytes # 0.110 H Neutrophils # 8.6 H Lymphocytes # 0.7 L Monocytes # 0.7 Eosinophils # 0.1 Basophils # 0.0 Nucleated Red Blood Cells # 0.0 Sodium Level 125 L Potassium Level 3.6 Chloride Level 89 L Carbon Dioxide Level 27 Anion Gap 9 Blood Urea Nitrogen 23 H Creatinine 2.03 H Est Glomerular Filtrat Rate mL/min Glucose Level 618 #*H 107 # Lactic Acid Level 1.6 Calcium Level 8.6 Phosphorus Level 3.3 Magnesium Level 1.8 Consultation Date/Type/Reason Admit Date/Time Feb 08, 2018 at 14:49 Aged female who is been in the intensive care unit [facility] since February 08, 2018. Patient presented to hospital in respiratory failure pulmonary edema she has a very low ejection fraction between 15-20% she was on hospice care prior to this hospitalization. Patient is also end-stage renal failure on hemodialysis. Diagnosed with sepsis syndrome probably from her lungs/pneumonia history of uncontrolled diabetes and has been off and on encephalopathic since she has been to the into the intensive care unit. I am asked to speak to patient's daughter insofar as ongoing level of care. Patient's mental status at this time is she does wax and wane she is unable to make any decisions on her own behalf. Family members are extremely realistic that even if patient survives this episode she still be left on dialysis congestive heart failure and will not have a good quality of life. Patient will probably require multiple hospitalizations in the future and the family does not want that. Past Medical History Medical History: congestive heart failure, diabetes, renal disease Medications Current Medications Digoxin (Digoxin) 0.125 mg DAILY@1300 PO Last administered on 02/17/18 14:52; Admin Dose 0.125 MG; Start 02/09/18 at 13:00 Levothyroxine Sodium (Synthroid) 25 mcg BEFORE BREAKFAST PO Last administered on 02/17/18 06:25; Admin Dose 25 MCG; Start 02/09/18 at 07:00 IV Flush (NS 3 ml) 3 ml PER PROTOCOL IV ; Start 02/08/18 at 16:30 Dextrose (D50w Syringe) 50 ml Q10MIN PRN IV hypoglycemia Last administered on 02/09/18at 23:42; Admin Dose 50 ML; Start 02/08/18 at 16:30 IV Flush (NS 10 ml) 10 ml PRN PRN IV IV PROTOCOL; Start 02/09/18 at 18:00 Phenylephrine HCl 40 mg/Dextrose 250 ml @ 37.5 mls/hr TITRATE IV ; Start 02/09/18 at 22:00 Ondansetron HCl (Zofran Inj) 4 mg Q4H PRN IV NAUSEA AND/OR VOMITING Last administered on 02/15/18 06:33; Admin Dose 4 MG; Start 02/09/18 at 23:00 Norepinephrine 32 mg/Dextrose 250 ml @ 0.47 mls/hr TITRATE IV Last administered on 02/15/18 12:28; Admin Dose 2.77 MLS/HR; Start 02/10/18 at 19:30 Gentamicin Sulfate (Gentamicin Iv Per Pharmacy) GENTAMICIN PER PHARM... NOTE XX ; Start 02/11/18 at 10:00 Gentamicin Sulfate 60 mg/ Sodium Chloride 51.5 ml @ 103 mls/hr AFTER DIALYSIS IVPB Last administered on 02/17/18 14:51; Admin Dose 103 MLS/HR; Start 02/12/18 at 11:00 Amiodarone HCl (Cordarone) 200 mg BID PO Last administered on 02/17/18 11:36; Admin Dose 200 MG; Start 02/11/18 at 13:30 Heparin Sodium (Porcine) (Heparin (1000 Units/ml)) 4,000 unit AFTER DIALYSIS CATHETER Last administered on 02/13/18at 14:26; Admin Dose 4,000 UNIT; Start 02/11/18 at 14:00 Lorazepam (Ativan) 1 mg DAILY PRN PO ANXIETY Last administered on 02/16/18 20:50; Admin Dose 1 MG; Start 02/13/18 at 13:00 Pantoprazole (Protonix Tab) 40 mg DAILY@06 PO Last administered on 02/17/18 06:25; Admin Dose 40 MG; Start 02/15/18 at 11:00 Acetaminophen (Tylenol Tab) 650 mg Q6H PRN PO MILD PAIN(1-3)OR ELEVATED TEMP; Start 02/15/18 at 16:30 Multivit/Ca Carb/ B Cmplx/FA/Prenat (Ariana-Satinder) 1 tab DAILY PO Last administered on 02/17/18 11:34; Admin Dose 1 TAB; Start 02/16/18 at 09:00 Docusate Sodium (Colace) 100 mg DAILY PO Last administered on 02/17/18 11:35; Admin Dose 100 MG; Start 02/16/18 at 09:00 Midodrine (Proamatine) 2.5 mg Q8 PO Last administered on 02/17/18 14:52; Admin Dose 2.5 MG; Start 02/16/18 at 14:00 Megestrol Acetate (Megace) 40 mg BID PO Last administered on 02/17/18at 11:35; Admin Dose 40 MG; Start 02/16/18 at 21:00 Allergies: Coded Allergies: No Known Allergy (Unverified , 02/16/18) Past Surgical History Past Surgical Hx: no surgical history Family History Significant Family History: other (Unknown) Social History Alcohol Use: none Smoking Status: Never smoker Drug Use: none Exam/Review of Systems Vital Signs Vitals Vital Signs Date Temp Pulse Resp B/P (MAP) Pulse Ox O2 O2 Flow FiO2 Time Delivery Rate 02/17/18 80 19 87/75 (79) 17:15 02/17/18 Nasal 17:00 Cannula 02/17/18 3.0 16:20 02/17/18 97.2 16:00 02/17/18 97 15:15 Intake and Output 02/16/18 02/16/18 02/17/18 1515:00 23:00 07:00 IntakeIntake Total 519 ml 435 ml 276 ml BalanceBalance 519 ml 435 ml 276 ml Exam She is encephalopathic unable to give a review of systems Constitutional: distress, frail, other Neck: supple, non-tender; No jvd, No bruits, No masses, No thyromegaly, No nuchal rigidity, No other Respiratory: congested cough, crackles/rales, diminished breath sounds, intercostal retraction, labored breathing Cardiovascular: gallop, S3 Gastrointestinal: bowel sounds Neurological: other (Minimally responsive only when stimulated minimally responsive response to verbal and tactile stimulation but waxes and wanes. Moving all 4 extremities cranial nerves grossly intact) Medications Medications Current Medications Digoxin (Digoxin) 0.125 mg DAILY@1300 PO Last administered on 02/17/18at 14:52; Admin Dose 0.125 MG; Start 02/09/18 at 13:00 Levothyroxine Sodium (Synthroid) 25 mcg BEFORE BREAKFAST PO Last administered on 02/17/18at 06:25; Admin Dose 25 MCG; Start 02/09/18 at 07:00 IV Flush (NS 3 ml) 3 ml PER PROTOCOL IV ; Start 02/08/18 at 16:30 Dextrose (D50w Syringe) 50 ml Q10MIN PRN IV hypoglycemia Last administered on 02/09/18at 23:42; Admin Dose 50 ML; Start 02/08/18 at 16:30 IV Flush (NS 10 ml) 10 ml PRN PRN IV IV PROTOCOL; Start 02/09/18 at 18:00 Phenylephrine HCl 40 mg/Dextrose 250 ml @ 37.5 mls/hr TITRATE IV ; Start 02/09/18 at 22:00 Ondansetron HCl (Zofran Inj) 4 mg Q4H PRN IV NAUSEA AND/OR VOMITING Last administered on 02/15/18 06:33; Admin Dose 4 MG; Start 02/09/18 at 23:00 Norepinephrine 32 mg/Dextrose 250 ml @ 0.47 mls/hr TITRATE IV Last administered on 02/15/18 12:28; Admin Dose 2.77 MLS/HR; Start 02/10/18 at 19:30 Gentamicin Sulfate (Gentamicin Iv Per Pharmacy) GENTAMICIN PER PHARM... NOTE XX ; Start 02/11/18 at 10:00 Gentamicin Sulfate 60 mg/ Sodium Chloride 51.5 ml @ 103 mls/hr AFTER DIALYSIS IVPB Last administered on 02/17/18 14:51; Admin Dose 103 MLS/HR; Start 02/12/18 at 11:00 Amiodarone HCl (Cordarone) 200 mg BID PO Last administered on 02/17/18 11:36; Admin Dose 200 MG; Start 02/11/18 at 13:30 Heparin Sodium (Porcine) (Heparin (1000 Units/ml)) 4,000 unit AFTER DIALYSIS CATHETER Last administered on 02/13/18at 14:26; Admin Dose 4,000 UNIT; Start 02/11/18 at 14:00 Lorazepam (Ativan) 1 mg DAILY PRN PO ANXIETY Last administered on 02/16/18 20:50; Admin Dose 1 MG; Start 02/13/18 at 13:00 Pantoprazole (Protonix Tab) 40 mg DAILY@06 PO Last administered on 02/17/18 06:25; Admin Dose 40 MG; Start 02/15/18 at 11:00 Acetaminophen (Tylenol Tab) 650 mg Q6H PRN PO MILD PAIN(1-3)OR ELEVATED TEMP; Start 02/15/18 at 16:30 Multivit/Ca Carb/ B Cmplx/FA/Prenat (Ariana-Satinder) 1 tab DAILY PO Last administered on 02/17/18 11:34; Admin Dose 1 TAB; Start 02/16/18 at 09:00 Docusate Sodium (Colace) 100 mg DAILY PO Last administered on 02/17/18at 11:35; Admin Dose 100 MG; Start 02/16/18 at 09:00 Midodrine (Proamatine) 2.5 mg Q8 PO Last administered on 02/17/18at 14:52; Admin Dose 2.5 MG; Start 02/16/18 at 14:00 Megestrol Acetate (Megace) 40 mg BID PO Last administered on 02/17/18at 11:35; Admin Dose 40 MG; Start 02/16/18 at 21:00 CLAUDIA AVILA Feb 17, 2018 18:36
--- NOTE | 2018-02-17 21:03 | NUR ---
RECEIVED REPORT FROM JENNIE. SHE STATED THAT THE FAMILY MADE A DECISION FOR COMFORT CARE. CONFERED WITH DR AVILA. PLAN IS TO COMMUNICATE WITH THE [employer] REP RE THE PACER . TURN OFF THE DEFIBRILLATOR. MED WITH MS Q 3 HOURS, TITRATE OFF LEVOPHED WITHIN 3-5 HOURS. NOTIFIED [employer] REP CABRERA HER PHONE NUMBER IS [phone]. SHE COMMUNICATED THE STEP TO TAKE TO TURN OF DEFIBRILLATER PLACE MAGNET ON THE PT CHEST LISTEN FOR LOW PITCH SOUND TIMES 30 SECS. THAT WILL INDICATE THE DEFIBRILATER IS OFF. KEEP THE MAGNET TAPED TO THE PT UNTIL ASYSTOLE,. PACER WILL STILL CAPTURE AND SENSE. THE PACER WILL LOSE CAPTURE THE HEAR MUSCLE DIES. FAMILY AT THE BEDSIDE. SNACKS/COMFORTCARE DIETARY OFFERING FOR THE FAMILY. FAMILY PRAYING, SUPPORTING AND OFFERING COMFORT.
[2018-02-17] MEDS: morphine SULFATE/PF (2 MG/2 ML) SYG IV PRN ×2 (21:55→23:53)
[2018-02-18] VITALS (17 sets, daily range): BP systolic 0–100; BP diastolic 17–60; PULSE 0–81; RESP 0–19
[2018-02-18] MEDS: morphine SULFATE/PF (2 MG/2 ML) SYG IV PRN ×2 (02:04→04:55)
--- NOTE | 2018-02-18 07:39 | NUR ---
EOS:PT ON COMFORT MEASURES RECEIVE MS 2MG Q 2 HOURS. TITRATED THE LEVOPHED OFF. FAMILY VERY SUPPORTIVE. PT CASEATED RESP AND HEART RATE AND HEART TONES. TURNED OF THE DEFIB VIA MAGNET. NOTIFIED NURSING PROPULSION MOTOR AND GENERATOR REPAIRER. DR GASTELUM WAS NOTIFIED AND CHARGE NURSE NOTIFIED. COMPLETED POST MORTEM CARE.
--- NOTE | 2018-02-18 07:44 | NUR ---
PT PRONOUNCED AT 0739 BY ROSANNA THE NURSING COMPUTER GAME DESIGNER
--- NOTE | 2018-02-18 07:47 | NUR ---
02/18/2017 07:39 PATIENT PRONOUCED PER PROTOCAL -COMFORT MEASURES ONLY /POLST DNR-DAUGHTER AT BEDSIDE-ASYSTOLE ON GOLF TECHNICIAN/NO HEART TONES /NO CAROTID PULSE X1MIN/ NO BREATH SOUNDS/NO RESPIRATIONS X1MIN/PUPILS DILATED AND FIXED,NO REACTION TO LIGHT / NO REACTION TO PAINFUL STIMULI-ROSANNA AGUIRRE SUPERVISOR INSPECTION AND TESTING PHN SCRUB TECHNICIAN
--- NOTE | 2018-02-18 08:14 | NUR ---
[facility] called at [id number]
--- NOTE | 2018-02-20 08:12 | DES ---
Date/Time of Note Date/Time of Note DATE: 02/20/18 TIME: 08:09 Discharge/ Summary Admission/Discharge Info Admit Date/Time Feb 08, 2018 at 14:49 Final Diagnosis ESRD CHF Preliminary Cause of Septic shock Admit History 72 yo female with ESRD on HD, severe systolic CHF, A Fib, PPM who presents with hypoglycemia and SOB Patient in USOH until last day. Found to be lethargic. Family checked FSG and found to be 14. EMS called and gave D50. In ED, found to be still lethargic and in respiratory failure. Started on bipap. Hypotensive as well, given abx. Patient unable to participate in history right now. Says her legs hurt, has obvious venous wound there Hospital Course 72 yo female with systolic CHF, DMII, ESRD, A Fib w PPM who presents with hypoglycemia, sepsis, and acute respiratory failure. She was treated wtih bipap and broad spectrum antibiotics. She was given HD treatments. Her respiratory status improved. however, she continued to require vasopressors. Shock was unable to be reversed. Patient had worsening encephelopathy and remained in shock after 1 week of aggressive treatment. She was unable to participate in goals of care discussions given encephelopathy. Her daughter (next of kin and POA) requested for comfort measures to begin given. Vasopressors were stopped and then palliative measures were started. She shortly therafter and was pronounced by ICU staff. KEANU CROUCH MD Feb 20, 2018 08:12
== END 2018-02-18 07:39 | disposition expired | DRG 871 ==
LOC: E/R 13:42 → ICU 14:49
PROVIDERS: ADMIT Internal Medicine; ATTEND Family Medicine
PROC: 5A1D70Z Performance of Urinary Filtration, Intermittent, Less than 6 Hours Per Day (ICD-10-PCS; 2018-02-08)
PROC: 02HV33Z Insertion of Infusion Device into Superior Vena Cava, Percutaneous Approach (ICD-10-PCS; principal; 2018-02-09)
DX: A41.50 Gram-negative sepsis, unspecified (principal); R65.21 Severe sepsis with septic shock; N18.6 End stage renal disease; J96.01 Acute respiratory failure with hypoxia; G93.41 Metabolic encephalopathy; N39.0 Urinary tract infection, site not specified; I13.2 Hypertensive heart and chronic kidney disease with heart failure and with stage 5 chronic kidney disease, or end stage renal disease; E87.1 Hypo-osmolality and hyponatremia; I42.9 Cardiomyopathy, unspecified; D61.818 Other pancytopenia; I50.20 Unspecified systolic (congestive) heart failure; E87.5 Hyperkalemia; E11.22 Type 2 diabetes mellitus with diabetic chronic kidney disease; E11.649 Type 2 diabetes mellitus with hypoglycemia without coma; Z99.2 Dependence on renal dialysis; Z95.0 Presence of cardiac pacemaker; Z51.5 Encounter for palliative care; Z66 Do not resuscitate
CPT/HCPCS: 36415; 36569; 36600; 71045; 76937; 80048; 80053; 80162; 80202; 81001; 82533; 82550; 82553; 82803; 82947; 82962; 83036; 83605; 83690; 83735; 83880; 84100; 84484; 85025; 85610; 85730; 86704; 86709; 86803; 87040; 87081; 87086; 87340; 90935; 93005; 93306; 94660; 96374; 97110; 97162; 97167; 97530; J0282; J0692; J0696; J1580; J1644; J1956; J2185; J2274; J2405; J3370; J3420; J7060; J7070; P9047; P9612